=== PATIENT | female | born 1935 | race Caucasian/White ===

== ENCOUNTER → 2016-09-19 | Outpatient (CLI) | payer OTHER ==
[~2016-09-19] MED LIST: /WARF25TA; GLUC500T; LEVO100T7; LISINOPRIL/HCTZ; MELOXICAN; METF500T4; MILKSUS; MIRAPEX; NORV5TAB; PERC5TAB8; PRIN20TA3; SYNT100T; mirapex
--- NOTE | 2016-09-19 13:13 | REP ---
LEFT TOES, FOUR VIEWS: HISTORY: Pain. There is no acute fracture or dislocation. There is narrowing of the first metatarsal phalangeal joint space with associated osteophyte formation. There is irregularity of the head of the first metatarsal. Hallux valgus deformity is present. There is narrowing of the metatarsal phalangeal , intermediate and distal interphalangeal joint spaces. IMPRESSION: Degenerative change as described above. Signed by Galen Sotelo MD 09/19/2016 01:15 P
== END ==
LOC: M WUC 12:05
DX: M19.072 Primary osteoarthritis, left ankle and foot (principal)
CPT/HCPCS: 73660; 97597; G0463

== ENCOUNTER → 2017-02-19 | Outpatient (REF) | payer OTHER ==
[2017-02-19 14:30] LABS: PERCENT SATURATION 43.6 % (13.2-37.4)
== END ==
LOC: M LAB REF 13:20
PROVIDERS: ATTEND Internal Medicine Medical Oncology
DX: E83.110 Hereditary hemochromatosis (principal)

== ENCOUNTER 2017-05-11 20:17 | Emergency (ER) | payer OTHER ==
[~2017-05-11] VITALS: Ht 147.3 cm; Wt 68.2 kg
[2017-05-11] MEDS ORDERED: TOVI4TAB PO (20:53)
[2017-05-11] MEDS ORDERED: SITA50TAB PO (20:53)
[2017-05-11] MEDS ORDERED: DULO30CA PO (20:53)
[2017-05-11] MEDS ORDERED: PRAM0.5T4 PO (20:53)
[2017-05-11] MEDS ORDERED: GLIP5TAB8 PO (20:53)
[2017-05-11] MEDS ORDERED: PERCOCET 5MG/325MG TAB PO ONE (23:15)
--- NOTE | 2017-05-11 23:51 | REPUSA ---
Clinical history: Pain, swelling. Findings: The left common femoral, superficial femoral, popliteal, and other deep venous structures c ompress normally and demonstrate normal color Doppler flow. Normal venous waveforms with augmentation are seen. Impression: No evidence of deep vein thrombosis in the left femoral popliteal venous system.
[2017-05-12] MEDS ORDERED: KETOROLAC 60 MG/2 ML VIAL (J1885) IM ONE (02:00)
[2017-05-12] MEDS ORDERED: KETO10TAB PO (02:06)
[2017-05-12 03:39] VITALS: BP 162/92
== END 2017-05-12 03:41 | disposition home or self-care (01) ==
LOC: M ED 20:17
DX: M25.562 Pain in left knee (principal); I10 Essential (primary) hypertension; E11.9 Type 2 diabetes mellitus without complications; M19.90 Unspecified osteoarthritis, unspecified site; Z79.84 Long term (current) use of oral hypoglycemic drugs; Z79.899 Other long term (current) drug therapy; Z91.02 Food additives allergy status
CPT/HCPCS: 93971; 96372; 99283; J1885

== ENCOUNTER 2017-05-31 14:57 | Observation (INO) | payer OTHER ==
[~2017-05-31] VITALS: Ht 152.4 cm; Wt 66.5 kg
[~2017-05-31 14:57] MED LIST changes: +DULO30CA PO; +GLIP5TAB8 PO; +KETO10TAB PO; +PRAM0.5T4 PO; +SITA50TAB PO; +TOVI4TAB PO
[2017-05-31 15:28] LABS: BASO % 0.4 % (0.0-1.0); EOS # 0.1 10^3/uL (0.0-0.50); EOS % 1.3 % (0.0-3.0); IMMATURE GRANULOCYTE % 0.3 % (0-0); LYMPH % 14.3 % (24.0-44.0); MEAN CORPUSCULAR HEMOGLOBIN 32.6 pg (27.0-33.0); MEAN CORPUSCULAR HGB CONC 34.8 g/dl (32.0-36.5); MEAN CORPUSCULAR VOLUME 93.7 fl (80.0-96.0); MONO # 0.6 10^3/uL (0.0-0.8); MONO % 8.5 % (0.0-5.0); NEUTROPHILS # 5.1 10^3/uL (1.8-7.7); NEUTROPHILS % 75.2 % (36.0-66.0); PLATELET COUNT, AUTOMATED 190 10^3/uL (150-450); RED CELL DISTRIBUTION WIDTH 13.9 % (11.5-14.5); WHITE BLOOD COUNT 6.8 10^3/uL (4.0-10.0)
[2017-05-31 15:30] LABS: ADD MORPHOLOGY? NO
[2017-05-31] MEDS ORDERED: IBUPROFEN 600 MG TAB PO ONE (15:30)
[2017-05-31] MEDS ORDERED: NAPR500T3 PO ×2 (15:34→17:38)
[2017-05-31] MEDS ORDERED: LEVO100T5 PO (15:34)
[2017-05-31] MEDS ORDERED: CEPH500C PO ×2 (15:34→17:38)
[2017-05-31] MEDS ORDERED: GLIP1TAB49 PO (15:34)
[2017-05-31] MEDS ORDERED: DULO1CAP2 PO ×2 (15:34→17:38)
[2017-05-31] MEDS ORDERED: KETO10TAB PO (15:34)
[2017-05-31] MEDS ORDERED: METF500T13 PO ×3 (15:34→17:38)
[2017-05-31] MEDS ORDERED: HYDR-3716 PO ×2 (15:34→17:38)
[2017-05-31] MEDS ORDERED: SULF1TAB72 PO (15:34)
[2017-05-31 15:41] LABS: INR 1.02
[2017-05-31 15:58] LABS: CALCIUM LEVEL 9.9 MG/DL (8.8-10.2); CHLORIDE LEVEL 102 MEQ/L (98-107); CREATININE FOR GFR 1.17 MG/DL (0.55-1.02); GLUCOSE, FASTING 97 MG/DL (83-110); POTASSIUM SERUM 4.2 MEQ/L (3.5-5.1); SODIUM LEVEL 136 MEQ/L (136-145)
[2017-05-31 16:07] LABS: BLOOD UREA NITROGEN 36 MG/DL (7-18)
[2017-05-31 16:26] LABS: ANION GAP 12 MEQ/L (8-16); CARBON DIOXIDE LEVEL 22 MEQ/L (21-32)
[2017-05-31] MEDS ORDERED: GLIP-162 PO (17:38)
[2017-05-31] MEDS ORDERED: TOVI4TAB PO (17:38)
[2017-05-31] MEDS ORDERED: PRAM0.5T4 PO (17:38)
[2017-05-31] MEDS ORDERED: BACT800T5 PO (17:38)
[2017-05-31] MEDS ORDERED: OSTETAB3 PO (17:38)
[2017-05-31] MEDS ORDERED: VITA100066 PO (17:38)
[2017-05-31] MEDS ORDERED: LEVO100T54 PO (17:38)
[2017-05-31] MEDS ORDERED: SITA50TAB PO (17:38)
[2017-05-31] MEDS ORDERED: DEXTROSE 50% 50 ML SYRINGE IV PRN (18:15)
[2017-05-31] MEDS ORDERED: ONDANSETRON 4MG/2ML VIAL (J2405) IV PRN (18:15)
[2017-05-31] MEDS ORDERED: GLUCAGON FOR INJ 1 MG VIAL (J1610) SC PRN (18:15)
[2017-05-31] MEDS ORDERED: GLUCOSE 4 GM CHEW TABLET PO PRN (18:15)
[2017-05-31] MEDS ORDERED: ONDANSETRON 4 MG TAB (S0181) PO PRN (18:15)
--- NOTE | 2017-05-31 19:41 | HPEPDOC ---
[facility] Medical History & Physical Date of Admission May 31, 2017 History and Physical HISTORY AND PHYSICAL Date of admission: 05/31/2017 PCP: Dr. Sky at [facility] Chief complaint: Left knee pain preventing me from walking HPI: 81-year-old female with hypertension, diabetes mellitus type 2, hypothyroidism, hemachromatosis, osteoarthritis, bilateral carpal tunnel syndrome, chronic kidney disease stage III who presented to the emergency department because she is having extreme pain in her left knee that prevents her from walking. She reports that this story started several weeks ago when she slipped and fell in the shower. She states that she was evaluated in our emergency department at that time. There is an ER visit from May 11, where she was complaining of knee pain, and a left Doppler was performed which showed no evidence of DVT. At that time, she was sent home. She states that this was a mechanical fall and she did not have any prodromal symptoms prior to it, she simply slipped on the wet mat. She states that she had no loss of consciousness. She was initially able to walk and get around as usual, which at baseline, is with a wheeled walker. However, approximately 4 days later, she began to experience intense leg pain that she describes as being in her left knee and extending down the distal aspect of her leg. Approximately one week ago , she noticed that she had erythema of her left lower extremity distal to her knee, and she went to urgent care. At urgent care on May 25, they prescribed her Keflex. She began taking that but did not notice much of a difference in her leg, so she returned to urgent care on May 28, where they added on Bactrim. The patient and her [id number], both state that she has had significant improvement in the erythema since adding the Bactrim to the Keflex. Additionally, the patient states that she even thinks the pain has gotten a little bit better since she started the Bactrim. However, the family is quite insistent that her pain is so bad that she cannot walk. Of note, they report that approximately one year ago, she hit her left garcia with firewood, which started off a terrible infection for which she had to go to the wound clinic. They state that this past spring, the wound finally healed, and she was discharged from the wound clinic. In the last couple days, the patient denies any fevers or vomiting. She denies any numbness or tingling in the left lower extremity, and reports only pain, and weakness secondary to the pain. Past medical history: hypertension, diabetes mellitus type 2, hypothyroidism, hemachromatosis, osteoarthritis, bilateral carpal tunnel syndrome, chronic kidney disease stage III Past surgical history: Right hip nailed after stress fracture, cataracts, right toe amputation, lumpectomy for benign breast Family history: Coronary artery disease, cancer, brain aneurysm, hypertension Social history: The patient currently lives alone, but her family lives next door. She lives in a one-story house. She quit smoking approximately 40 years ago. She does not drink any alcohol Allergies: Red dye Review of systems: General: Negative on fever and chills Eyes:. Negative for vision changes and ocular discharge ENT: Negative for sore throat and nose bleed Cardiovascular: Negative for chest pain and palpitations Respiratory: Negative for cough and shortness of breath GI: Negative for nausea, vomiting, diarrhea, constipation Musculoskeletal: Positive for back pain if she lies on a hard surface, however, she states that she is not currently having any back pain here in the emergency department; she states that her only pain is in her left knee extending distally into the lower leg Neuro: Negative for headache and dizziness. Positive for chronic numbness and tingling of her bilateral hands, but no numbness or tingling in her left lower extremity Psych: Positive for depression, negative for suicidal ideation Endocrine: Negative for polyuria : Negative for dysuria Heme: Negative for bleeding Home meds: See below Physical exam: Vital signs: Vital Sign - Last 24 Hours 05/31/17 05/31/17 05/31/17 05/31/17 15:25 15:28 15:57 16:12 Temp 99.6 Pulse 92 92 92 Resp 18 B/P (MAP) 178/93 (121) Pulse Ox 95 93 93 O2 Delivery Room Air 05/31/17 16:16 B/P (MAP) 192/96 (128) Gen.: awake, alert, no acute distress Eyes: Extraocular movements intact, normal sclera ENT: Moist mucous membranes Cardiovascular: RRR, no murmurs rubs or gallops Lungs: clear to auscultation bilaterally, no rales, rhonchi, or wheeze Abdomen: Soft, NT/ND, normal BS Musculoskeletal: The patient is able to actively flex both lower extremities to at least 90, however, the patient tells me that the pain limits her from flexing her left lower extremity much past that point; there is no warmth or erythema of her bilateral knees; the patient reports tenderness to palpation of the left knee but she is unable to articulate any particular location, stating that it hurts whenever I touch any portion of that knee Skin: The patient has dark erythema of the left lower extremity on her anterior garcia, wrapping around to the posterior portion. This extends into the ankle but not into the foot. She also has evidence of an old healed wound on the left garcia. Extremities: No peripheral edema; intact pedal pulses bilaterally Neuro: alert and oriented 3, normal speech, no focal deficits Psych: Normal mood with congruent affect Labs and radiology: See below CBC is unremarkable BMP is remarkable only for creatinine of 1.17, which is consistent with her baseline creatinine being in the low ones secondary to stage III chronic kidney disease Coags are unremarkable Left lower extremity Doppler ultrasound shows no evidence of DVT Assessment and plan: 81-year-old female with hypertension, diabetes mellitus type 2, hypothyroidism, hemachromatosis, osteoarthritis, bilateral carpal tunnel syndrome, chronic kidney disease stage III who presented to the emergency department because she is having extreme pain in her left knee that prevents her from walking. She states that this pain began several days after she slipped and fell in the shower 3 weeks ago. She is also currently being treated for cellulitis of the left lower extremity. 1. Left knee pain: This began after she slipped and fell in the shower several weeks ago. I'm not able to find any evidence of imaging of her actual knee, only left lower extremity Doppler sounds. We will start with plain films of the left knee, and if that is unrevealing, we could consider CT or MRI of that knee. She does not have any erythema or warmth of the joint, so I do not have a suspicion for septic joint. We also will ask PT and OT to work with the patient. 2. Left lower extremity cellulitis: This is currently being treated with oral Keflex and Bactrim, and the patient and family report they have seen significant improvement since the initiation. We will continue her home oral Keflex and Bactrim. We will also check blood cultures. She is currently afebrile with a normal white count. We will tana the borders of the erythema so as to be able to better monitor her response to treatment. Left lower extremity Doppler ultrasound in the emergency department was negative for DVT. 3. Hypertension: The patient's blood pressure is currently elevated, but the patient does not report any home medications for blood pressure. I suspect that this may be secondary to her pain. We will attempt to treat her pain and monitor her blood pressure. If there is no improvement with adequate pain control, she may warrant being started on an oral agent. 4. Diabetes mellitus type 2: Continue home glipizide and Januvia. We will hold metformin while in-house. We also will monitor fingersticks and sliding scale insulin while in house. 5. Hypothyroidism: Continue home Synthroid. 6. Chronic kidney disease stage III: The patient's baseline creatinine appears to be in the low ones. She is currently at baseline. We will continue to monitor this closely as she is on Bactrim. 7. Depression: Continue home Cymbalta. DVT prophylaxis: Renally dosed Lovenox Dispo: Place in observation on the service of Dr. King; the patient and her family are seeking some sort of potential rehabilitation; PT/OT will be evaluating the patient tomorrow, and we have also placed a case management consult; we attempted to get case management from the emergency department to help set the family up with appropriate services, but as it was a Thursday evening , case management was unable to arrange anything that the family also found mutually agreeable that would help them be able to care for their mother at home , thus we have kept her for observation CODE STATUS: DNR/DNI as per the patient's expressed wishes; a MOLST form was completed attesting to her wishes; the patient has a legal healthcare POA, who is her son Krishna Cordero; she had paperwork attesting to this, and a copy was made and placed on her chart. Vital Signs Vital Signs Date Time Temp Pulse Resp B/P (MAP) Pulse Ox O2 Delivery O2 Flow Rate FiO2 05/31/17 16:16 192/96 (128) 05/31/17 16:12 92 93 05/31/17 15:25 99.6 18 Room Air Laboratory Data Labs 24H Laboratory Tests 2 05/31/17 15:16: Immature Granulocyte % (Auto) 0.3H, White Blood Count 6.8, Red Blood Count 4.29 , Hemoglobin 14.0, Hematocrit 40.2, Mean Corpuscular Volume 93.7, Mean Corpuscular Hemoglobin 32.6, Mean Corpuscular Hemoglobin Concent 34.8, Red Cell Distribution Width 13.9, Platelet Count 190, Neutrophils (%) (Auto) 75.2H, Lymphocytes (%) (Auto) 14.3L, Monocytes (%) (Auto) 8.5H, Eosinophils (%) (Auto) 1.3, Basophils (%) (Auto) 0.4, Neutrophils # (Auto) 5.1, Lymphocytes # (Auto) 1.0L, Monocytes # (Auto) 0.6, Eosinophils # (Auto) 0.1, Basophils # (Auto) 0.0, Immature Granulocyte # (Auto) 0.0, Nucleated Red Blood Cells % (auto) 0.0, Prothrombin Time 13.5, Prothromb Time International Ratio 1.02, Activated Partial Thromboplast Time 34.6, Anion Gap 12, Blood Urea Nitrogen 36H, Creatinine 1.17H, Sodium Level 136, Potassium Level 4.2, Chloride Level 102, Carbon Dioxide Level 22, Calcium Level 9.9 CBC/BMP Laboratory Tests 05/31/17 15:16 Red Blood Count 4.29, Mean Corpuscular Volume 93.7, Mean Corpuscular Hemoglobin 32.6, Mean Corpuscular Hemoglobin Concent 34.8, Red Cell Distribution Width 13.9 , Neutrophils (%) (Auto) 75.2 H, Lymphocytes (%) (Auto) 14.3 L, Monocytes (%) ( Auto) 8.5 H, Eosinophils (%) (Auto) 1.3, Basophils (%) (Auto) 0.4, Neutrophils # (Auto) 5.1, Lymphocytes # (Auto) 1.0 L, Monocytes # (Auto) 0.6, Eosinophils # (Auto) 0.1, Basophils # (Auto) 0.0, Calcium Level 9.9 Home Medications Scheduled (Toviaz) 4 Mg Tab, 4 MG PO DAILY (Osteo Bi-Flex Regular Str 250-200 mg) 1 Tab Tab, 1 TAB PO DAILY Cephalexin Monohydrate (Cephalexin) 500 Mg Cap, 500 MG PO TID FILLED 05/25/17 FOR 10 DAYS Cholecalciferol (Vitamin D) 1,000 Unit Tab, 1,000 UNIT PO DAILY Duloxetine Hcl (Duloxetine HCl) 30 Mg Cap, 30 MG PO DAILY Glipizide (Glipizide Xl) 5 Mg Tab, 5 MG PO DAILY Levothyroxine Sodium (Levoxyl) 100 Mcg Tab, 100 MCG PO DAILY Metformin Hydrochloride (Metformin HCl) 500 Mg Tab, 1,000 MG PO QAM Metformin Hydrochloride (Metformin HCl) 500 Mg Tab, 500 MG PO QPM Naproxen (Naproxen) 500 Mg Tab, 500 MG PO BID Pramipexole Dihydrochloride (Pramipexole Dihydrochlori) 0.5 Mg Tab, 0.5 MG PO QHS Sitagliptin (Januvia) 50 Mg Tab, 50 MG PO DAILY Trimethoprim/Sulfamethoxazole (Bactrim Ds 800-160 mg) 1 Tab Tab, 1 TAB PO BID FILLED 05/28/17 FOR 10 DAYS Scheduled PRN Acetaminophen/Hydrocodone (Hydrocodone/Acetaminophen 7.5-325 mg) 1 Tab Tab, 1 TAB PO BID PRN for PAIN DAUGHTER STATES THAT PATIENT IS TAKING TOO MANY Allergies Coded Allergies: Red Dye (Verified Allergy, Unknown, 11/30/12) LEMUEL CLINTON May 31, 2017 19:41
[2017-05-31 20:50] VITALS: BP 149/72
[2017-05-31] MEDS: HumaLOG INSULIN (NovoLOG) PER UNIT SC SCH (21:00)
[2017-05-31] MEDS: PRAMIPEXOLE 0.25 MG TAB PO SCH (21:52)
[2017-05-31] MEDS: CEPHALEXIN 500 MG CAP PO SCH (21:52)
[2017-05-31] MEDS: BACTRIM 160MG/800MG DS TAB PO SCH (21:52)
[2017-05-31] MEDS: PERCOCET 5MG/325MG TAB PO PRN (21:54)
[2017-06-01] MEDS: ACETAMINOPHEN TAB 650MG DOSE (2X325MG) PO PRN (00:07)
[2017-06-01] MEDS: PERCOCET 5MG/325MG TAB PO PRN ×3 (01:49→20:31)
[2017-06-01 06:00] VITALS: BP 145/69
--- NOTE | 2017-06-01 06:38 | REP ---
LEFT LOWER EXTREMITY DUPLEX VEINS: HISTORY: Swelling. COMPARISON: 05/25/2017. There are no filling defects in the deep venous system. The deep venous system is patent. IMPRESSION: There is no deep venous thrombosis. Signed by Galen Sotelo MD 06/01/2017 08:57 A
[2017-06-01 07:25] LABS: BASO # 0.1 10^3/uL (0.0-0.2); BASO % 0.9 % (0.0-1.0); EOS # 0.1 10^3/uL (0.0-0.50); EOS % 2.6 % (0.0-3.0); IMMATURE GRANULOCYTE % 0.4 % (0-0); LYMPH % 18.5 % (24.0-44.0); MEAN CORPUSCULAR HEMOGLOBIN 32.4 pg (27.0-33.0); MEAN CORPUSCULAR HGB CONC 34.2 g/dl (32.0-36.5); MEAN CORPUSCULAR VOLUME 94.7 fl (80.0-96.0); MONO # 0.5 10^3/uL (0.0-0.8); NEUTROPHILS # 3.7 10^3/uL (1.8-7.7); NEUTROPHILS % 68.6 % (36.0-66.0); PLATELET COUNT, AUTOMATED 146 10^3/uL (150-450); WHITE BLOOD COUNT 5.5 10^3/uL (4.0-10.0)
[2017-06-01] MEDS: HumaLOG INSULIN (NovoLOG) PER UNIT SC SCH ×4 (07:30→20:38)
--- NOTE | 2017-06-01 07:35 | REP ---
Left knee five views: There are no comparisons. There is chondrocalcinosis suggestive of CPPD. There is tricompartment osteoarthritis. There is demineralization. There is no effusion. There are no calcifications or foreign bodies. Signed by Fabian Morgan MD 06/01/2017 07:27 A
--- NOTE | 2017-06-01 07:36 | REP ---
Left tibia-fibula four views: There is demineralization. There is no fracture or dislocation. 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 Tricompartment osteoarthritis at the knee. There are no calcifications or foreign bodies. Signed by Fabian Morgan MD 06/01/2017 07:28 A
[2017-06-01 07:46] LABS: CALCIUM LEVEL 9.3 MG/DL (8.8-10.2); CREATININE FOR GFR 1.03 MG/DL (0.55-1.02); GLOMERULAR FILTRATION RATE 54.6 (>32); MAGNESIUM LEVEL 1.7 MG/DL (1.8-2.4); POTASSIUM SERUM 4.2 MEQ/L (3.5-5.1)
[2017-06-01 08:00] VITALS: BP 171/74
[2017-06-01] MEDS ORDERED: glipiZIDE XL 5 MG TABCR PO SCH (09:00)
[2017-06-01] MEDS ORDERED: SITagliptin 50 MG TAB (JANUVIA) PO SCH (09:00)
[2017-06-01] MEDS: VITAMIN D 1,000 INTERNATIONAL UNITS TABLET PO SCH (10:50)
[2017-06-01] MEDS: SENOKOT S TAB PO SCH ×2 (10:51→20:30)
[2017-06-01] MEDS: BACTRIM 160MG/800MG DS TAB PO SCH ×2 (10:51→20:30)
[2017-06-01] MEDS: DULoxetine 30 MG CAP (CYMBALTA) PO SCH (10:52)
[2017-06-01] MEDS: CEPHALEXIN 500 MG CAP PO SCH ×3 (10:53→20:30)
[2017-06-01] MEDS: LEVOTHYROXINE 100MCG TABLET (0.1MG) PO SCH (10:53)
[2017-06-01] MEDS: ENOXAPARIN 30 MG/0.3 ML SYR (J1650) SC SCH (10:55)
[2017-06-01 14:00] VITALS: BP 160/73
--- NOTE | 2017-06-01 14:09 | IPNPDOC ---
Text Note Date of Service The patient was seen on 06/01/17. NOTE Subjective: Patient is an 81 year old female with a PMHx of HTN, DM2, Hypothyroidism, CKD3, Hemochromatosis, OA and Bilateral carpal tunnel syndrome who presented to the ER with complaints of with pain in her left knee that has prevented her from walking. She noted she fell in her shower 2 weeks prior and since that point her pain has worsened. Patient was seen at Urgent care on 05/28 for Cellulitis and was prescribed antibiotics that have shown continued improvement. In the ER patient received imaging that was negative for a fracture or DVT. Imaging is consistent with osteoarthritis. Hospitalist team was called for admission for intractable pain and inability to ambulate. Patient was seen and examined at the bedside. Objective: Vitals (See below) General: Lying in bed, no acute distress, comfortable, AAOx3 HEENT: NC, AT CVS: RRR, +S1S2 Lungs: Fair air entry b/l, -w/r/r Abdomen: Soft, ND, NT Extremities: +PPx4, - Edema, Left knee with no restriction in ROM, +Crepitus at left knee, Left leg with mild erythema/warmth/tenderness Assessment and plan: Intractable left knee pain causing inability to ambulate - likely 2/2 severe osteoarthritis of knee - Presented after she had a fall at home - Physical with left knee crepitus, no restriction in passive ROM - Labs without any significant abnormalities - Imaging noted, negative fracture or DVT - c/w Pain control and Physical therapy Left lower extremity cellulitis, improving - Has been on outpatient antibiotics since 05/28/17 - Family and patient have noted improvement - Improving cellulitis - c/w Cephalexin and TMP/SMX (Day #4) HTN - BP elevated this morning - likely 2/2 pain - Will adjust pain medications to 2 pills of [place] - Will start Amlodipine 5 mg daily DM2 - Will hold Glipizide / Januvia / Metforin - c/w IS Hypothyroidism - c/w Levothyroxine CKD3 - Cr at baseline - Monitor closely while on TMP/SMX Depression - c/w Duloxetine RLS - c/w Pramipexole DVT prophylaxis - c/w Lovenox Disposition: - Awaiting clearance from PT VS,Deandre, I+O VS, Deandre, I+O Laboratory Tests 05/31/17 15:16 Red Blood Count 4.29, Mean Corpuscular Volume 93.7, Mean Corpuscular Hemoglobin 32.6, Mean Corpuscular Hemoglobin Concent 34.8, Red Cell Distribution Width 13.9 , Neutrophils (%) (Auto) 75.2 H, Lymphocytes (%) (Auto) 14.3 L, Monocytes (%) ( Auto) 8.5 H, Eosinophils (%) (Auto) 1.3, Basophils (%) (Auto) 0.4, Neutrophils # (Auto) 5.1, Lymphocytes # (Auto) 1.0 L, Monocytes # (Auto) 0.6, Eosinophils # (Auto) 0.1, Basophils # (Auto) 0.0, Calcium Level 9.9 06/01/17 07:12 Red Blood Count 3.98 L, Mean Corpuscular Volume 94.7, Mean Corpuscular Hemoglobin 32.4, Mean Corpuscular Hemoglobin Concent 34.2, Red Cell Distribution Width 14.0, Neutrophils (%) (Auto) 68.6 H, Lymphocytes (%) (Auto) 18.5 L, Monocytes (%) (Auto) 9.0 H, Eosinophils (%) (Auto) 2.6, Basophils (%) ( Auto) 0.9, Neutrophils # (Auto) 3.7, Lymphocytes # (Auto) 1.0 L, Monocytes # ( Auto) 0.5, Eosinophils # (Auto) 0.1, Basophils # (Auto) 0.1, Calcium Level 9.3 Vital Signs Date Time Temp Pulse Resp B/P (MAP) Pulse Ox O2 Delivery O2 Flow Rate FiO2 06/01/17 08:00 97.9 108 18 171/74 (106) 100 Room Air I&O- Last 24 Hours up to 6 AM 06/02/17 06:00 Intake Total 480 ml Output Total 350 ml Balance 130 ml LON DIAZ MD Jun 01, 2017 14:09
[2017-06-01] MEDS: amLODIPine 5 MG TAB PO SCH (14:28)
[2017-06-01 20:00] VITALS: BP 142/64
[2017-06-01] MEDS: PRAMIPEXOLE 0.25 MG TAB PO SCH (20:30)
[2017-06-02] MEDS: PERCOCET 5MG/325MG TAB PO PRN ×3 (04:15→20:32)
[2017-06-02 06:00] VITALS: BP 154/66
[2017-06-02 07:09] LABS: BASO % 0.6 % (0.0-1.0); EOS # 0.1 10^3/uL (0.0-0.50); EOS % 1.6 % (0.0-3.0); IMMATURE GRANULOCYTE % 0.3 % (0-0); LYMPH # 0.8 10^3/uL (1.5-4.5); LYMPH % 13.3 % (24.0-44.0); MEAN CORPUSCULAR HEMOGLOBIN 32.6 pg (27.0-33.0); MEAN CORPUSCULAR HGB CONC 34.9 g/dl (32.0-36.5); MEAN CORPUSCULAR VOLUME 93.6 fl (80.0-96.0); MONO # 0.5 10^3/uL (0.0-0.8); MONO % 8.5 % (0.0-5.0); NEUTROPHILS # 4.7 10^3/uL (1.8-7.7); NEUTROPHILS % 75.7 % (36.0-66.0); PLATELET COUNT, AUTOMATED 145 10^3/uL (150-450); RED CELL DISTRIBUTION WIDTH 13.8 % (11.5-14.5); WHITE BLOOD COUNT 6.2 10^3/uL (4.0-10.0)
[2017-06-02 07:38] LABS: ANION GAP 8 MEQ/L (8-16); BLOOD UREA NITROGEN 20 MG/DL (7-18); CALCIUM LEVEL 9.6 MG/DL (8.8-10.2); CARBON DIOXIDE LEVEL 25 MEQ/L (21-32); CHLORIDE LEVEL 103 MEQ/L (98-107); CREATININE FOR GFR 0.92 MG/DL (0.55-1.02); GLOMERULAR FILTRATION RATE > 60.0 (>32); GLUCOSE, FASTING 161 MG/DL (83-110); MAGNESIUM LEVEL 1.7 MG/DL (1.8-2.4); POTASSIUM SERUM 4.2 MEQ/L (3.5-5.1); SODIUM LEVEL 136 MEQ/L (136-145)
[2017-06-02 07:47] LABS: ADD MANUAL DIFFER NO; DIFF SLIDE NUMBER 53
[2017-06-02] MEDS: ENOXAPARIN 30 MG/0.3 ML SYR (J1650) SC SCH (07:50)
[2017-06-02] MEDS: HumaLOG INSULIN (NovoLOG) PER UNIT SC SCH ×4 (07:51→20:33)
[2017-06-02] MEDS: SENOKOT S TAB PO SCH ×2 (07:51→20:26)
[2017-06-02] MEDS: BACTRIM 160MG/800MG DS TAB PO SCH ×2 (07:51→20:25)
[2017-06-02] MEDS: VITAMIN D 1,000 INTERNATIONAL UNITS TABLET PO SCH (07:51)
[2017-06-02] MEDS: amLODIPine 5 MG TAB PO SCH (07:52)
[2017-06-02] MEDS: CEPHALEXIN 500 MG CAP PO SCH ×3 (07:52→20:25)
[2017-06-02] MEDS: DULoxetine 30 MG CAP (CYMBALTA) PO SCH (07:52)
[2017-06-02] MEDS: LEVOTHYROXINE 100MCG TABLET (0.1MG) PO SCH (07:54)
[2017-06-02] MEDS ORDERED: MAG SULF 1GM/100ML (MAG RUN) 1 GM in APPROPRIATE DILUENT 1 EA IV ONE (08:00)
[2017-06-02 14:00] VITALS: BP 139/74
--- NOTE | 2017-06-02 15:32 | IPNPDOC ---
Text Note Date of Service The patient was seen on 06/02/17. NOTE Subjective: Pt states her knee pain is improving. She is participating with PT> Objective: Vitals: (see below) General: No acute distress, laying comfortably in bed. HEENT: Moist mucous membranes. Neck: No JVD or lymphadenopathy Cardiac: RRR, No murmurs Pulm: Clear to auscultation b/l. No wheezing, rhonchi Abd: NT/ND + BS Ext: No edema or cyanosis. Left knee full range of motion. Does have pain with flexion. No effusion. Distal pulses intact. Strength 5/5 BLE. Labs (see below) Images: Tibia/fibula x-ray There is demineralization. There is no fracture or dislocation. 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 Tricompartment osteoarthritis at the knee. There are no calcifications or foreign bodies. L Knee X ray 06/01/17 There is chondrocalcinosis suggestive of CPPD. There is tricompartment osteoarthritis. There is demineralization. There is no effusion. There are no calcifications or foreign bodies. Venous X ray 06/01/17 IMPRESSION: There is no deep venous thrombosis. Assessment/Plan 1. Intractable left knee pain likely secondary to severe osteoarthritis - CONTINUE pain control and physical therapy 2. Left lower extremity cellulitis- resolved. Patient on antibiotics. 3. Hypertension- controlled; continue current meds 4. Diabetes mellitus- hold by mouth meds. Sliding-scale insulin. 5. Hypothyroidism- continue levothyroxine 6. Depression- continue home meds 7. Chronic kidney disease stage III- creatinine stable 8. Restless leg syndrome- continue home meds DVT prophy: Lovenox The patient has progressive with physical therapy, she will likely need subacute rehabilitation. VS,Fishbone, I+O VS, Fishbone, I+O Laboratory Tests 06/02/17 06:22 Red Blood Count 4.35, Mean Corpuscular Volume 93.6, Mean Corpuscular Hemoglobin 32.6, Mean Corpuscular Hemoglobin Concent 34.9, Red Cell Distribution Width 13.8 , Neutrophils (%) (Auto) 75.7 H, Lymphocytes (%) (Auto) 13.3 L, Monocytes (%) ( Auto) 8.5 H, Eosinophils (%) (Auto) 1.6, Basophils (%) (Auto) 0.6, Neutrophils # (Auto) 4.7, Lymphocytes # (Auto) 0.8 L, Monocytes # (Auto) 0.5, Eosinophils # (Auto) 0.1, Basophils # (Auto) 0.0, Calcium Level 9.6 Vital Signs Date Time Temp Pulse Resp B/P (MAP) Pulse Ox O2 Delivery O2 Flow Rate FiO2 06/02/17 14:00 98.1 76 18 139/74 (95) 97 Room Air I&O- Last 24 Hours up to 6 AM 06/03/17 06:00 Intake Total 580 ml Output Total 75 ml Balance 505 ml BILL SALAZAR MD Jun 02, 2017 15:32
[2017-06-02] MEDS: PRAMIPEXOLE 0.25 MG TAB PO SCH (20:26)
[2017-06-02 22:00] VITALS: BP 148/75
[2017-06-03] MEDS: ACETAMINOPHEN TAB 650MG DOSE (2X325MG) PO PRN (02:02)
[2017-06-03 06:00] VITALS: BP 148/70
[2017-06-03 07:03] LABS: BASO % 0.7 % (0.0-1.0); EOS # 0.2 10^3/uL (0.0-0.50); IMMATURE GRANULOCYTE % 0.4 % (0-0); LYMPH % 17.2 % (24.0-44.0); MEAN CORPUSCULAR HEMOGLOBIN 32.9 pg (27.0-33.0); MEAN CORPUSCULAR HGB CONC 34.9 g/dl (32.0-36.5); MEAN CORPUSCULAR VOLUME 94.1 fl (80.0-96.0); MONO # 0.6 10^3/uL (0.0-0.8); MONO % 10.1 % (0.0-5.0); NEUTROPHILS # 3.9 10^3/uL (1.8-7.7); NEUTROPHILS % 68.6 % (36.0-66.0); PLATELET COUNT, AUTOMATED 151 10^3/uL (150-450); WHITE BLOOD COUNT 5.7 10^3/uL (4.0-10.0)
[2017-06-03 07:31] LABS: ANION GAP 7 MEQ/L (8-16); BLOOD UREA NITROGEN 18 MG/DL (7-18); CALCIUM LEVEL 9.4 MG/DL (8.8-10.2); CARBON DIOXIDE LEVEL 25 MEQ/L (21-32); CHLORIDE LEVEL 104 MEQ/L (98-107); CREATININE FOR GFR 0.84 MG/DL (0.55-1.02); GLOMERULAR FILTRATION RATE > 60.0 (>32); GLUCOSE, FASTING 167 MG/DL (83-110); MAGNESIUM LEVEL 1.9 MG/DL (1.8-2.4); POTASSIUM SERUM 4.5 MEQ/L (3.5-5.1); SODIUM LEVEL 136 MEQ/L (136-145)
[2017-06-03] MEDS: BACTRIM 160MG/800MG DS TAB PO SCH ×2 (09:35→19:52)
[2017-06-03] MEDS: VITAMIN D 1,000 INTERNATIONAL UNITS TABLET PO SCH (09:36)
[2017-06-03] MEDS: SENOKOT S TAB PO SCH ×2 (09:36→19:51)
[2017-06-03] MEDS: CEPHALEXIN 500 MG CAP PO SCH ×3 (09:36→19:51)
[2017-06-03] MEDS: DULoxetine 30 MG CAP (CYMBALTA) PO SCH (09:36)
[2017-06-03] MEDS: LEVOTHYROXINE 100MCG TABLET (0.1MG) PO SCH (09:36)
[2017-06-03] MEDS: HumaLOG INSULIN (NovoLOG) PER UNIT SC SCH ×4 (09:36→20:05)
[2017-06-03] MEDS: ENOXAPARIN 30 MG/0.3 ML SYR (J1650) SC SCH (09:37)
[2017-06-03] MEDS: amLODIPine 5 MG TAB PO SCH (09:39)
[2017-06-03] MEDS: PERCOCET 5MG/325MG TAB PO PRN ×2 (09:49→19:52)
[2017-06-03 14:00] VITALS: BP 149/72
--- NOTE | 2017-06-03 14:39 | IPNPDOC ---
Text Note Date of Service The patient was seen on 06/03/17. NOTE Subjective: Pt states her knee pain is improving. Still hasn't progressed with PT. Objective: Vitals: (see below) General: No acute distress, laying comfortably in bed. HEENT: Moist mucous membranes. Neck: No JVD or lymphadenopathy Cardiac: RRR, No murmurs Pulm: Clear to auscultation b/l. No wheezing, rhonchi Abd: NT/ND + BS Ext: No edema or cyanosis. Left knee full range of motion. Does have pain with flexion. No effusion. Distal pulses intact. Strength 5/5 BLE. Labs (see below) Images: Tibia/fibula x-ray There is demineralization. There is no fracture or dislocation. 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 Tricompartment osteoarthritis at the knee. There are no calcifications or foreign bodies. L Knee X ray 06/01/17 There is chondrocalcinosis suggestive of CPPD. There is tricompartment osteoarthritis. There is demineralization. There is no effusion. There are no calcifications or foreign bodies. Venous X ray 06/01/17 IMPRESSION: There is no deep venous thrombosis. Assessment/Plan 1. Intractable left knee pain likely secondary to severe osteoarthritis - Continue pain control and physical therapy 2. Left lower extremity cellulitis- resolved. Patient on antibiotics. 3. Hypertension- controlled; continue current meds 4. Diabetes mellitus- hold by mouth meds. Sliding-scale insulin. 5. Hypothyroidism- continue levothyroxine 6. Depression- continue home meds 7. Chronic kidney disease stage III- creatinine stable 8. Restless leg syndrome- continue home meds DVT prophy: Lovenox The patient has progressive with physical therapy, she will likely need subacute rehabilitation. VS,Fishbone, I+O VS, Fishbone, I+O Laboratory Tests 06/03/17 06:20 Red Blood Count 4.26, Mean Corpuscular Volume 94.1, Mean Corpuscular Hemoglobin 32.9, Mean Corpuscular Hemoglobin Concent 34.9, Red Cell Distribution Width 14.0 , Neutrophils (%) (Auto) 68.6 H, Lymphocytes (%) (Auto) 17.2 L, Monocytes (%) ( Auto) 10.1 H, Eosinophils (%) (Auto) 3.0, Basophils (%) (Auto) 0.7, Neutrophils # (Auto) 3.9, Lymphocytes # (Auto) 1.0 L, Monocytes # (Auto) 0.6, Eosinophils # (Auto) 0.2, Basophils # (Auto) 0.0, Calcium Level 9.4 Vital Signs Date Time Temp Pulse Resp B/P (MAP) Pulse Ox O2 Delivery O2 Flow Rate FiO2 06/03/17 14:00 98.4 91 18 149/72 (97) 95 Room Air I&O- Last 24 Hours up to 6 AM 06/04/17 06:00 Intake Total 360 ml Balance 360 ml BILL SALAZAR MD Jun 03, 2017 14:39
[2017-06-03] MEDS: PRAMIPEXOLE 0.25 MG TAB PO SCH (19:51)
[2017-06-03 22:00] VITALS: BP 144/66
[2017-06-04] MEDS: PERCOCET 5MG/325MG TAB PO PRN ×2 (02:05→08:23)
[2017-06-04 06:00] VITALS: BP 138/88
[2017-06-04 06:55] LABS: BASO % 0.7 % (0.0-1.0); EOS # 0.1 10^3/uL (0.0-0.50); EOS % 2.6 % (0.0-3.0); IMMATURE GRANULOCYTE % 0.2 % (0-0); LYMPH % 18.2 % (24.0-44.0); MEAN CORPUSCULAR HEMOGLOBIN 33.1 pg (27.0-33.0); MEAN CORPUSCULAR HGB CONC 34.5 g/dl (32.0-36.5); MEAN CORPUSCULAR VOLUME 95.8 fl (80.0-96.0); MONO # 0.5 10^3/uL (0.0-0.8); MONO % 8.5 % (0.0-5.0); NEUTROPHILS # 3.8 10^3/uL (1.8-7.7); NEUTROPHILS % 69.8 % (36.0-66.0); PLATELET COUNT, AUTOMATED 164 10^3/uL (150-450); RED CELL DISTRIBUTION WIDTH 14.3 % (11.5-14.5); WHITE BLOOD COUNT 5.4 10^3/uL (4.0-10.0)
[2017-06-04 07:20] LABS: CALCIUM LEVEL 9.3 MG/DL (8.8-10.2); CREATININE FOR GFR 1.03 MG/DL (0.55-1.02); GLOMERULAR FILTRATION RATE 54.6 (>32); MAGNESIUM LEVEL 1.9 MG/DL (1.8-2.4); POTASSIUM SERUM 4.7 MEQ/L (3.5-5.1)
[2017-06-04] MEDS: HumaLOG INSULIN (NovoLOG) PER UNIT SC SCH (08:07)
[2017-06-04 08:08] VITALS: BP 132/84
[2017-06-04] MEDS: CEPHALEXIN 500 MG CAP PO SCH (08:08)
[2017-06-04] MEDS: amLODIPine 5 MG TAB PO SCH (08:08)
[2017-06-04] MEDS: LEVOTHYROXINE 100MCG TABLET (0.1MG) PO SCH (08:08)
[2017-06-04] MEDS: VITAMIN D 1,000 INTERNATIONAL UNITS TABLET PO SCH (08:08)
[2017-06-04] MEDS: ENOXAPARIN 30 MG/0.3 ML SYR (J1650) SC SCH (08:08)
[2017-06-04] MEDS: BACTRIM 160MG/800MG DS TAB PO SCH (08:08)
[2017-06-04] MEDS: SENOKOT S TAB PO SCH (08:08)
[2017-06-04] MEDS: DULoxetine 30 MG CAP (CYMBALTA) PO SCH (08:08)
[2017-06-04] MEDS ORDERED: SENN1TAB2 PO (08:56)
[2017-06-04] MEDS ORDERED: AMLO5TAB2 PO (08:56)
--- NOTE | 2017-06-04 15:55 | DS.PDOC ---
Discharge Summary General Date of Admission May 31, 2017 at 18:13 Date of Discharge 06/04/17 Attending Physician: BILL SALAZAR MD Discharge Summary PROCEDURES PERFORMED DURING STAY: None. ADMITTING/DISCHARGE DIAGNOSES: 1. Severe Osteoarthritis b/l Knees 2. Left lower extremity cellulitis status post antibiotic therapy. 3. Hypertension 4. Diabetes mellitus 5. Hypothyroidism 6. Depression 7. Chronic kidney disease stage III 8. Restless leg syndrome COMPLICATIONS/CHIEF COMPLAINT: HISTORY OF PRESENT ILLNESS/HOSPITAL COURSE: This is a 81-year-old female with past medical history of diabetes, hypertension , hypothyroid some substance complaining of left knee pain. Patient was noted to have severe osteoarthritis of her left knee and was maintained on pain control and physical therapy. Patient was also noted to have left lower extremity cellulitis which did not involve the knee. She had previously been started on antibiotics prior to hospitalization and was continued on them. The cellulitis has resolved. The patient has progressed with physical therapy however was recommended that she continue with rehabilitation for which her family has picked her up this morning to take her to [facility]. Patient is hemodynamically stable and ready for discharge today. DISCHARGE MEDICATIONS: Please see below. ALLERGIES: Please see below. PHYSICAL EXAMINATION ON DISCHARGE: Vitals: (see below) General: No acute distress, laying comfortably in bed. HEENT: Moist mucous membranes. Neck: No JVD or lymphadenopathy Cardiac: RRR, No murmurs Pulm: Clear to auscultation b/l. No wheezing, rhonchi Abd: NT/ND + BS Ext: No edema or cyanosis. Left knee full range of motion. Does have pain with flexion. No effusion. Distal pulses intact. Strength 5/5 BLE. LABORATORY DATA: Please see below. IMAGING: Tibia/fibula x-ray There is demineralization. There is no fracture or dislocation. 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 Tricompartment osteoarthritis at the knee. There are no calcifications or foreign bodies. L Knee X ray 06/01/17 There is chondrocalcinosis suggestive of CPPD. There is tricompartment osteoarthritis. There is demineralization. There is no effusion. There are no calcifications or foreign bodies. Venous X ray 06/01/17 IMPRESSION: There is no deep venous thrombosis. PROGNOSIS: Guarded ACTIVITY: As tolerated. DIET: Low-sodium DISCHARGE PLAN/DISPOSITION: Discharged to rehabilitation at [facility] DISCHARGE INSTRUCTIONS: 1. Follow-up with PCP in 1-2 weeks. Return to the ED if symptoms worsen. DISCHARGE CONDITION: Stable. TIME SPENT ON DISCHARGE: Greater than 30 minutes. Vital Signs/I&Os Vital Signs Date Time Temp Pulse Resp B/P (MAP) Pulse Ox O2 Delivery O2 Flow Rate FiO2 06/04/17 08:23 16 06/04/17 08:08 80 132/84 06/04/17 06:00 97.7 92 Room Air I&O- Last 24 Hours up to 6 AM 06/05/17 06:00 Intake Total 510 ml Output Total 200 ml Balance 310 ml Laboratory Data Labs 24H Laboratory Tests 2 06/03/17 16:25: Bedside Glucose (Misc Panel) 232H 06/03/17 19:36: Bedside Glucose (Misc Panel) 381H 06/04/17 06:19: Immature Granulocyte % (Auto) 0.2H, White Blood Count 5.4, Red Blood Count 4.05 , Hemoglobin 13.4, Hematocrit 38.8, Mean Corpuscular Volume 95.8, Mean Corpuscular Hemoglobin 33.1H, Mean Corpuscular Hemoglobin Concent 34.5, Red Cell Distribution Width 14.3, Platelet Count 164, Neutrophils (%) (Auto) 69.8H, Lymphocytes (%) (Auto) 18.2L, Monocytes (%) (Auto) 8.5H, Eosinophils (%) (Auto) 2.6, Basophils (%) (Auto) 0.7, Neutrophils # (Auto) 3.8, Lymphocytes # (Auto) 1.0L, Monocytes # (Auto) 0.5, Eosinophils # (Auto) 0.1, Basophils # (Auto) 0.0, Immature Granulocyte # (Auto) 0.0, Nucleated Red Blood Cells % (auto) 0.0, Anion Gap 9, Glomerular Filtration Rate 54.6, Blood Urea Nitrogen 26H, Creatinine 1.03H, Sodium Level 135L, Potassium Level 4.7, Chloride Level 102, Carbon Dioxide Level 24, Calcium Level 9.3, Magnesium Level 1.9 CBC/BMP Laboratory Tests 06/04/17 06:19 Red Blood Count 4.05, Mean Corpuscular Volume 95.8, Mean Corpuscular Hemoglobin 33.1 H, Mean Corpuscular Hemoglobin Concent 34.5, Red Cell Distribution Width 14.3, Neutrophils (%) (Auto) 69.8 H, Lymphocytes (%) (Auto) 18.2 L, Monocytes (% ) (Auto) 8.5 H, Eosinophils (%) (Auto) 2.6, Basophils (%) (Auto) 0.7, Neutrophils # (Auto) 3.8, Lymphocytes # (Auto) 1.0 L, Monocytes # (Auto) 0.5, Eosinophils # (Auto) 0.1, Basophils # (Auto) 0.0, Calcium Level 9.3 FSBS Laboratory Tests Test 06/03/17 16:25 06/03/17 19:36 Range/Units Bedside Glucose (Misc Panel) 232 381 83-110 MG/DL Microbiology Microbiology 05/31/17 Blood Culture - Preliminary, Resulted No Growth after 72 hours. All specime... Discharge Medications Scheduled (Toviaz) 4 Mg Tab, 4 MG PO DAILY, (Reported) (Osteo Bi-Flex Regular Str 250-200 mg) 1 Tab Tab, 1 TAB PO DAILY, (Reported) (Senna Plus 8.6-50 mg) 1 Tab Tab, 1 TAB PO BID Amlodipine Besylate (Amlodipine Besylate) 5 Mg Tab, 5 MG PO DAILY Cholecalciferol (Vitamin D) 1,000 Unit Tab, 1,000 UNIT PO DAILY, (Reported) Duloxetine Hcl (Duloxetine HCl) 30 Mg Cap, 30 MG PO DAILY, (Reported) Glipizide (Glipizide Xl) 5 Mg Tab, 5 MG PO DAILY, (Reported) Levothyroxine Sodium (Levoxyl) 100 Mcg Tab, 100 MCG PO DAILY, (Reported) Metformin Hydrochloride (Metformin HCl) 500 Mg Tab, 1,000 MG PO QAM, (Reported) Metformin Hydrochloride (Metformin HCl) 500 Mg Tab, 500 MG PO QPM, (Reported) Pramipexole Dihydrochloride (Pramipexole Dihydrochlori) 0.5 Mg Tab, 0.5 MG PO QHS, (Reported) Sitagliptin (Januvia) 50 Mg Tab, 50 MG PO DAILY, (Reported) Allergies Coded Allergies: Red Dye (Verified Allergy, Unknown, 11/30/12) BILL SALAZAR MD Jun 04, 2017 15:55
== END 2017-06-04 10:15 | disposition other institution (70) ==
LOC: EDSEX 14:57 → EDBD 14:57 → M ED 15:55 → M ED INP 18:13 → M MS5PR 20:45
PROVIDERS: ADMIT Hospitalist; ATTEND Internal Medicine
DX: M17.0 Bilateral primary osteoarthritis of knee (principal); L03.116 Cellulitis of left lower limb; I10 Essential (primary) hypertension; E11.9 Type 2 diabetes mellitus without complications; E03.9 Hypothyroidism, unspecified; N18.3 Chronic kidney disease, stage 3 (moderate); F32.9 Major depressive disorder, single episode, unspecified; G25.81 Restless legs syndrome; Z79.899 Other long term (current) drug therapy; Z87.891 Personal history of nicotine dependence
CPT/HCPCS: 36415; 73564; 73590; 80048; 83735; 85025; 85610; 85730; 86140; 87040; 93971; 96372; 97110; 97116; 97161; 97165; 97535; 99285; G8978; G8979; G8980; G8987; G8988; G8989; J1650; J3475

== ENCOUNTER 2017-09-15 11:23 | Emergency (ER) | payer OTHER ==
[2017-09-15] MEDS: MORPHINE 2 MG/ML 1ML SYRINGE IV (13:14)
[2017-09-15 13:24] LABS: BASO % 0.7 % (0.0-1.0); EOS # 0.2 10^3/uL (0.0-0.50); HEMATOCRIT 39.1 % (36.0-47.0); HEMOGLOBIN 13.8 g/dl (12.0-16.0); IMMATURE GRANULOCYTE % 0.2 % (0-0); LYMPH # 0.4 10^3/uL (1.5-4.5); LYMPH % 8.7 % (24.0-44.0); MEAN CORPUSCULAR HEMOGLOBIN 33.7 pg (27.0-33.0); MEAN CORPUSCULAR HGB CONC 35.3 g/dl (32.0-36.5); MEAN CORPUSCULAR VOLUME 95.4 fl (80.0-96.0); MONO # 0.3 10^3/uL (0.0-0.8); MONO % 7.1 % (0.0-5.0); NEUTROPHILS # 3.4 10^3/uL (1.8-7.7); NEUTROPHILS % 79.3 % (36.0-66.0); PLATELET COUNT, AUTOMATED 165 10^3/uL (150-450); RED CELL DISTRIBUTION WIDTH 16.3 % (11.5-14.5); WHITE BLOOD COUNT 4.2 10^3/uL (4.0-10.0)
[2017-09-15 13:38] LABS: INR 0.94; PROTHROMBIN TIME 12.6 SECONDS (12.4-14.5)
[2017-09-15 13:39] LABS: PARTIAL THROMBOPLASTIN TIME 35.1 SECONDS (26.8-37.9)
[2017-09-15 13:42] LABS: ANION GAP 11 MEQ/L (8-16); BLOOD UREA NITROGEN 23 MG/DL (7-18); CALCIUM LEVEL 9.7 MG/DL (8.8-10.2); CARBON DIOXIDE LEVEL 24 MEQ/L (21-32); CHLORIDE LEVEL 103 MEQ/L (98-107); CPK CREATINE PHOSPHOKINASE 58 U/L (26-192); CREATININE FOR GFR 0.82 MG/DL (0.55-1.02); GLOMERULAR FILTRATION RATE > 60.0 (>32); GLUCOSE, FASTING 157 MG/DL (83-110); POTASSIUM SERUM 3.8 MEQ/L (3.5-5.1); SODIUM LEVEL 138 MEQ/L (136-145)
[2017-09-15 13:43] LABS: LACTIC ACID SEPSIS PROTOCOL 2.7 MMOL/L (0.4-2.0)
[2017-09-15 13:49] LABS: ERYTHROCYTE SEDIMENTATION RATE 40 mm/hr (0-30)
[2017-09-15] MEDS: HYDROmorphone HCL 1 MG/ML SYRINGE (J1170) IV (14:30)
== END 2017-09-15 14:47 | disposition home or self-care (01) ==
LOC: M ED 11:23
DX: G62.9 Polyneuropathy, unspecified (principal); I10 Essential (primary) hypertension; E11.9 Type 2 diabetes mellitus without complications; E03.9 Hypothyroidism, unspecified; F33.9 Major depressive disorder, recurrent, unspecified; E83.119 Hemochromatosis, unspecified; Z79.899 Other long term (current) drug therapy; Z79.84 Long term (current) use of oral hypoglycemic drugs; Z91.048 Other nonmedicinal substance allergy status; F17.210 Nicotine dependence, cigarettes, uncomplicated
CPT/HCPCS: J1170

== ENCOUNTER 2017-10-03 13:50 | Inpatient (IN) | payer MEDICARE, OTHER ==
[2017-10-03 15:22] LABS: HEMATOCRIT 43.8 % (36.0-47.0); HEMOGLOBIN 14.8 g/dl (12.0-16.0); MEAN CORPUSCULAR HEMOGLOBIN 32.8 pg (27.0-33.0); MEAN CORPUSCULAR HGB CONC 33.8 g/dl (32.0-36.5); MEAN CORPUSCULAR VOLUME 97.1 fl (80.0-96.0); PLATELET COUNT, AUTOMATED 180 10^3/uL (150-450); RED BLOOD COUNT 4.51 10^6/uL (4.00-5.40); RED CELL DISTRIBUTION WIDTH 15.4 % (11.5-14.5); WHITE BLOOD COUNT 6.6 10^3/uL (4.0-10.0)
[2017-10-03 15:39] LABS: AMPHETAMINES LEVEL URINE NEGATIVE (NEGATIVE); BARBITURATES URINE NEGATIVE (NEGATIVE); BENZODIAZEPINES URINE NEGATIVE (NEGATIVE); CANNABINOIDS URINE NEGATIVE (NEGATIVE); COCAINE METABOLITE URINE NEGATIVE (NEGATIVE); METHADONE URINE NEGATIVE (NEGATIVE); OPIATES URINE POSITIVE (NEGATIVE); PHENCYCLIDINE URINE NEGATIVE (NEGATIVE)
[2017-10-03 15:47] LABS: ACETAMINOPHEN LEVEL < 2.0 UG/ML (10.0-30.0); ALBUMIN 3.7 GM/DL (3.2-5.2); ALBUMIN/GLOBULIN RATIO 0.97 (1.00-1.93); ALKALINE PHOSPHATASE 136 U/L (45-117); ALT/SGPT 19 U/L (12-78); ANION GAP 11 MEQ/L (8-16); AST/SGOT 24 U/L (7-37); BILIRUBIN,DIRECT 0.4 MG/DL (0.0-0.2); BLOOD UREA NITROGEN 21 MG/DL (7-18); CALCIUM LEVEL 9.1 MG/DL (8.8-10.2); CARBON DIOXIDE LEVEL 25 MEQ/L (21-32); CHLORIDE LEVEL 102 MEQ/L (98-107); CREATININE FOR GFR 0.85 MG/DL (0.55-1.30); ETHYL ALCOHOL (ETHANOL) 0.003 % (0.000-0.010); GLOMERULAR FILTRATION RATE > 60.0 (>32); GLUCOSE, FASTING 162 MG/DL (70-100); POTASSIUM SERUM 3.6 MEQ/L (3.5-5.1); SALICYLATE LEVEL < 1.7 MG/DL (5.0-30.0); SODIUM LEVEL 138 MEQ/L (136-145); THYROID STIMULATING HORMONE 0.327 uIU/ML (0.358-3.740); TOTAL PROTEIN 7.5 GM/DL (6.4-8.2)
[2017-10-03] MEDS ORDERED: MOM 30ML SUSPENSION UDC PO (19:45)
[2017-10-03] MEDS: NORCO, ANEXSIA 5/325MG TABLET (HYDROcodone/ACETAMINOPHEN) PO (21:11)
[2017-10-04] MEDS: ACETAMINOPHEN TAB 650MG DOSE (2X325MG) PO ×2 (02:36→09:44)
[2017-10-04 06:26] LABS: BEDSIDE GLUCOSE 150 MG/DL (83-110)
[2017-10-04 10:49] LABS: BEDSIDE GLUCOSE 272 MG/DL (83-110)
[2017-10-04] MEDS: NORCO, ANEXSIA 5/325MG TABLET (HYDROcodone/ACETAMINOPHEN) PO ×2 (12:52→21:55)
[2017-10-04] MEDS: BACITRACIN OINT 30GM TOP (13:00)
[2017-10-04] MEDS: LOSARTAN 50 MG TAB PO (13:12)
[2017-10-04] MEDS: ENOXAPARIN 30 MG/0.3 ML SYR (J1650) SC (14:46)
[2017-10-04 17:46] LABS: BEDSIDE GLUCOSE 232 MG/DL (83-110)
[2017-10-04] MEDS ORDERED: metFORMIN (GLUCOPHAGE) 500 MG TAB PO (18:00)
[2017-10-04] MEDS: PRAMIPEXOLE 0.25 MG TAB PO (22:11)
[2017-10-05] MEDS: traZODone 50 MG TAB PO (01:25)
[2017-10-05] MEDS: ACETAMINOPHEN TAB 650MG DOSE (2X325MG) PO ×2 (01:25→14:46)
[2017-10-05] MEDS: LEVOTHYROXINE 100MCG TABLET (0.1MG) PO (06:23)
[2017-10-05 07:50] LABS: BEDSIDE GLUCOSE 156 MG/DL (83-110)
[2017-10-05] MEDS: glipiZIDE *XL* 2.5MG TABLET PO (07:50)
[2017-10-05] MEDS: SITagliptin 50 MG TAB (JANUVIA) PO (07:50)
[2017-10-05] MEDS: LOSARTAN 50 MG TAB PO (07:51)
[2017-10-05] MEDS: SERTRALINE HCL 25 MG TABLET PO (07:51)
[2017-10-05] MEDS: BACITRACIN OINT 30GM TOP (07:52)
[2017-10-05] MEDS: ENOXAPARIN 30 MG/0.3 ML SYR (J1650) SC (07:52)
[2017-10-05] MEDS ORDERED: metFORMIN (GLUCOPHAGE) 1000 MG TABLET PO (08:00)
[2017-10-05 09:18] LABS: ALBUMIN 3.5 GM/DL (3.2-5.2); ALBUMIN/GLOBULIN RATIO 0.95 (1.00-1.93); ALKALINE PHOSPHATASE 135 U/L (45-117); ALT/SGPT 29 U/L (12-78); ANION GAP 8 MEQ/L (8-16); AST/SGOT 48 U/L (7-37); BILIRUBIN,TOTAL 1.1 MG/DL (0.2-1.0); BLOOD UREA NITROGEN 20 MG/DL (7-18); CALCIUM LEVEL 9.1 MG/DL (8.8-10.2); CARBON DIOXIDE LEVEL 26 MEQ/L (21-32); CHLORIDE LEVEL 107 MEQ/L (98-107); CHOLESTEROL LEVEL 141 MG/DL (<200); CREATININE FOR GFR 0.72 MG/DL (0.55-1.30); FREE THYROXINE INDEX 4.7 % (1.3-4.8); GLOMERULAR FILTRATION RATE > 60.0 (>32); GLUCOSE, FASTING 176 MG/DL (70-100); HDL CHOLESTEROL 60 MG/DL (>40); NON-HDL-C 81 MG/DL; POTASSIUM SERUM 3.7 MEQ/L (3.5-5.1); SODIUM LEVEL 141 MEQ/L (136-145); T UPTAKE 35 % (30-39); THYROID STIMULATING HORMONE 0.622 uIU/ML (0.358-3.740); THYROXINE (T4) 13.4 UG/DL (4.5-12.0); TOTAL PROTEIN 7.2 GM/DL (6.4-8.2); TRIGLYCERIDES LEVEL 170 MG/DL (<150)
[2017-10-05] MEDS: NORCO, ANEXSIA 5/325MG TABLET (HYDROcodone/ACETAMINOPHEN) PO ×2 (09:50→21:45)
[2017-10-05] MEDS: DOCUSATE SODIUM 100 MG CAP PO ×2 (14:45→21:41)
[2017-10-05 17:06] LABS: BEDSIDE GLUCOSE 145 MG/DL (83-110)
[2017-10-05] MEDS: PRAMIPEXOLE 0.25 MG TAB PO (21:41)
[2017-10-05] MEDS: DOXEPIN 25 MG CAP PO (22:24)
[2017-10-06] MEDS: LEVOTHYROXINE 100MCG TABLET (0.1MG) PO (06:07)
[2017-10-06] MEDS: glipiZIDE *XL* 2.5MG TABLET PO (06:36)
[2017-10-06 06:41] LABS: BEDSIDE GLUCOSE 130 MG/DL (83-110)
[2017-10-06] MEDS: ENOXAPARIN 30 MG/0.3 ML SYR (J1650) SC (08:36)
[2017-10-06] MEDS: SERTRALINE HCL 25 MG TABLET PO (08:36)
[2017-10-06] MEDS: BACITRACIN OINT 30GM TOP (08:36)
[2017-10-06] MEDS: SITagliptin 50 MG TAB (JANUVIA) PO (08:37)
[2017-10-06] MEDS: LOSARTAN 50 MG TAB PO (08:37)
[2017-10-06] MEDS: DOCUSATE SODIUM 100 MG CAP PO ×2 (08:37→21:53)
[2017-10-06] MEDS: NORCO, ANEXSIA 5/325MG TABLET (HYDROcodone/ACETAMINOPHEN) PO (08:38)
[2017-10-06] MEDS ORDERED: BUPRENORPHINE/NALOXONE 8-2MG SUBLINGUAL TABLET(SUBOXONE) SL ×3 (09:00→21:00)
[2017-10-06] MEDS: BUPRENORPHINE/NALOXONE 2-0.5MG SUBLINGUAL TABLET(SUBOXONE) SL ×2 (09:00→13:13)
[2017-10-06] MEDS: ACETAMINOPHEN TAB 650MG DOSE (2X325MG) PO ×2 (13:14→21:54)
[2017-10-06 16:52] LABS: BEDSIDE GLUCOSE 122 MG/DL (83-110)
[2017-10-06] MEDS: PRAMIPEXOLE 0.25 MG TAB PO (21:53)
[2017-10-06] MEDS: DOXEPIN 25 MG CAP PO (21:53)
[2017-10-07] MEDS: LEVOTHYROXINE 100MCG TABLET (0.1MG) PO (06:30)
[2017-10-07] MEDS: glipiZIDE *XL* 2.5MG TABLET PO (06:30)
[2017-10-07 06:36] LABS: BEDSIDE GLUCOSE 163 MG/DL (83-110)
[2017-10-07 07:34] LABS: HEMATOCRIT 37.7 % (36.0-47.0); MEAN CORPUSCULAR HEMOGLOBIN 33.7 pg (27.0-33.0); MEAN CORPUSCULAR HGB CONC 34.5 g/dl (32.0-36.5); MEAN CORPUSCULAR VOLUME 97.7 fl (80.0-96.0); PLATELET COUNT, AUTOMATED 133 10^3/uL (150-450); RED BLOOD COUNT 3.86 10^6/uL (4.00-5.40); RED CELL DISTRIBUTION WIDTH 15.1 % (11.5-14.5); WHITE BLOOD COUNT 3.9 10^3/uL (4.0-10.0)
[2017-10-07] MEDS: DOCUSATE SODIUM 100 MG CAP PO ×2 (08:39→22:23)
[2017-10-07] MEDS: SITagliptin 50 MG TAB (JANUVIA) PO (08:39)
[2017-10-07] MEDS: BUPRENORPHINE/NALOXONE 2-0.5MG SUBLINGUAL TABLET(SUBOXONE) SL (08:39)
[2017-10-07] MEDS: BACITRACIN OINT 30GM TOP (08:40)
[2017-10-07] MEDS: SERTRALINE HCL 25 MG TABLET PO (08:40)
[2017-10-07] MEDS: ENOXAPARIN 30 MG/0.3 ML SYR (J1650) SC (08:41)
[2017-10-07] MEDS: LOSARTAN 50 MG TAB PO (08:44)
[2017-10-07] MEDS ORDERED: BUPRENORPHINE/NALOXONE 8-2MG SUBLINGUAL TABLET(SUBOXONE) SL ×2 (09:00)
[2017-10-07 10:24] LABS: ESTIMATED AVERAGE GLUCOSE 108 MG/DL (60-110); HEMOGLOBIN A1c 5.4 %
[2017-10-07] MEDS: CEPHALEXIN 500 MG CAP PO ×3 (12:23→22:23)
[2017-10-07] MEDS: ACETAMINOPHEN 500 MG TAB PO (12:49)
[2017-10-07] MEDS: DULoxetine 30 MG CAP (CYMBALTA) PO (14:54)
[2017-10-07 17:34] LABS: BEDSIDE GLUCOSE 152 MG/DL (83-110)
[2017-10-07] MEDS: BUPRENORPHINE/NALOXONE 8-2MG SUBLINGUAL TABLET(SUBOXONE) SL (18:18)
[2017-10-07] MEDS: PRAMIPEXOLE 0.25 MG TAB PO (22:23)
[2017-10-08] MEDS: LEVOTHYROXINE 100MCG TABLET (0.1MG) PO (06:21)
[2017-10-08 07:10] LABS: HEMATOCRIT 36.3 % (36.0-47.0); MEAN CORPUSCULAR HEMOGLOBIN 33.1 pg (27.0-33.0); MEAN CORPUSCULAR HGB CONC 33.1 g/dl (32.0-36.5); PLATELET COUNT, AUTOMATED 136 10^3/uL (150-450); RED BLOOD COUNT 3.63 10^6/uL (4.00-5.40); RED CELL DISTRIBUTION WIDTH 15.4 % (11.5-14.5)
[2017-10-08 07:33] LABS: ALBUMIN 2.7 GM/DL (3.2-5.2); ALBUMIN/GLOBULIN RATIO 0.73 (1.00-1.93); ALKALINE PHOSPHATASE 166 U/L (45-117); ALT/SGPT 48 U/L (12-78); ANION GAP 7 MEQ/L (8-16); AST/SGOT 53 U/L (7-37); BILIRUBIN,TOTAL 0.9 MG/DL (0.2-1.0); BLOOD UREA NITROGEN 31 MG/DL (7-18); CALCIUM LEVEL 8.8 MG/DL (8.8-10.2); CARBON DIOXIDE LEVEL 26 MEQ/L (21-32); CHLORIDE LEVEL 106 MEQ/L (98-107); CREATININE FOR GFR 0.87 MG/DL (0.55-1.30); GLOMERULAR FILTRATION RATE > 60.0 (>32); GLUCOSE, FASTING 157 MG/DL (70-100); POTASSIUM SERUM 4.2 MEQ/L (3.5-5.1); SODIUM LEVEL 139 MEQ/L (136-145); TOTAL PROTEIN 6.4 GM/DL (6.4-8.2)
[2017-10-08] MEDS: SITagliptin 50 MG TAB (JANUVIA) PO (07:41)
[2017-10-08] MEDS: glipiZIDE *XL* 2.5MG TABLET PO (07:41)
[2017-10-08] MEDS: LOSARTAN 50 MG TAB PO (09:00)
[2017-10-08] MEDS: CEPHALEXIN 500 MG CAP PO (09:00)
[2017-10-08] MEDS: DOCUSATE SODIUM 100 MG CAP PO ×2 (09:08→20:56)
[2017-10-08] MEDS: DULoxetine 30 MG CAP (CYMBALTA) PO (09:08)
[2017-10-08] MEDS: BUPRENORPHINE/NALOXONE 8-2MG SUBLINGUAL TABLET(SUBOXONE) SL ×2 (09:13→18:09)
[2017-10-08] MEDS: ENOXAPARIN 30 MG/0.3 ML SYR (J1650) SC (09:16)
[2017-10-08] MEDS: BACITRACIN OINT 30GM TOP (09:30)
[2017-10-08] MEDS: ACETAMINOPHEN 500 MG TAB PO ×2 (12:12→21:00)
[2017-10-08] MEDS: SANTYL OINT 30GM TOP (14:28)
[2017-10-08 17:07] LABS: BEDSIDE GLUCOSE 140 MG/DL (83-110)
[2017-10-08] MEDS: DOXEPIN 25 MG CAP PO (20:56)
[2017-10-08] MEDS: PRAMIPEXOLE 0.25 MG TAB PO (20:56)
[2017-10-09] MEDS: LEVOTHYROXINE 100MCG TABLET (0.1MG) PO (05:41)
[2017-10-09 06:27] LABS: BEDSIDE GLUCOSE 133 MG/DL (83-110)
[2017-10-09 07:44] LABS: ALBUMIN 2.7 GM/DL (3.2-5.2); ALBUMIN/GLOBULIN RATIO 0.82 (1.00-1.93); ALKALINE PHOSPHATASE 240 U/L (45-117); ALT/SGPT 51 U/L (12-78); ANION GAP 8 MEQ/L (8-16); AST/SGOT 73 U/L (7-37); BILIRUBIN,TOTAL 0.8 MG/DL (0.2-1.0); BLOOD UREA NITROGEN 36 MG/DL (7-18); CALCIUM LEVEL 8.7 MG/DL (8.8-10.2); CARBON DIOXIDE LEVEL 25 MEQ/L (21-32); CHLORIDE LEVEL 105 MEQ/L (98-107); CREATININE FOR GFR 0.81 MG/DL (0.55-1.30); GLOMERULAR FILTRATION RATE > 60.0 (>32); GLUCOSE, FASTING 128 MG/DL (70-100); POTASSIUM SERUM 4.2 MEQ/L (3.5-5.1); SODIUM LEVEL 138 MEQ/L (136-145)
[2017-10-09] MEDS: glipiZIDE *XL* 2.5MG TABLET PO (07:52)
[2017-10-09] MEDS: SITagliptin 50 MG TAB (JANUVIA) PO (07:52)
[2017-10-09] MEDS: ENOXAPARIN 30 MG/0.3 ML SYR (J1650) SC (09:22)
[2017-10-09] MEDS: LOSARTAN 50 MG TAB PO (09:23)
[2017-10-09] MEDS: BUPRENORPHINE/NALOXONE 8-2MG SUBLINGUAL TABLET(SUBOXONE) SL ×3 (09:23→20:51)
[2017-10-09] MEDS: DULoxetine 30 MG CAP (CYMBALTA) PO (09:23)
[2017-10-09] MEDS: DOCUSATE SODIUM 100 MG CAP PO ×2 (09:23→20:46)
[2017-10-09 10:40] LABS: HEPATITIS B SURFACE ANTIGEN NEGATIVE (NEGATIVE)
[2017-10-09 10:55] LABS: HEPATITIS B CORE ANTIBODY IGM NEGATIVE (NEGATIVE); HEPATITIS C VIRUS ABY INDEX < 0.0 INDEX (<0.8)
[2017-10-09 10:57] LABS: HEPATITIS A ANTIBODY IGM NEGATIVE (NEGATIVE)
[2017-10-09] MEDS: SANTYL OINT 30GM TOP (11:01)
[2017-10-09] MEDS: GABAPENTIN 400 MG CAP PO ×3 (11:02→20:46)
[2017-10-09 11:40] LABS: HEMATOCRIT 36.8 % (36.0-47.0); HEMOGLOBIN 12.3 g/dl (12.0-16.0); MEAN CORPUSCULAR HEMOGLOBIN 33.1 pg (27.0-33.0); MEAN CORPUSCULAR HGB CONC 33.4 g/dl (32.0-36.5); MEAN CORPUSCULAR VOLUME 98.9 fl (80.0-96.0); PLATELET COUNT, AUTOMATED 142 10^3/uL (150-450); RED BLOOD COUNT 3.72 10^6/uL (4.00-5.40); RED CELL DISTRIBUTION WIDTH 14.9 % (11.5-14.5); WHITE BLOOD COUNT 3.7 10^3/uL (4.0-10.0)
[2017-10-09 12:00] LABS: FERRITIN 126 NG/ML (8-252); IRON (FE) 61 UG/DL (50-170); PERCENT SATURATION 33.9 % (13.2-45.0); TOTAL IRON BINDING CAPACITY 180 UG/DL (250-450)
[2017-10-09 12:12] LABS: VITAMIN B12 LEVEL 177 PG/ML (247-911)
[2017-10-09 12:13] LABS: FOLATE 9.9 NG/ML (>5.4)
[2017-10-09] MEDS: ACETAMINOPHEN 500 MG TAB PO (16:37)
[2017-10-09 17:07] LABS: BEDSIDE GLUCOSE 170 MG/DL (83-110)
[2017-10-09] MEDS: PRAMIPEXOLE 0.25 MG TAB PO (20:46)
[2017-10-10] MEDS: ACETAMINOPHEN 500 MG TAB PO ×2 (03:36→12:06)
[2017-10-10] MEDS: LEVOTHYROXINE 100MCG TABLET (0.1MG) PO (06:17)
[2017-10-10] MEDS: glipiZIDE *XL* 2.5MG TABLET PO (06:33)
[2017-10-10 06:50] LABS: BEDSIDE GLUCOSE 155 MG/DL (83-110)
[2017-10-10 07:29] LABS: HEMATOCRIT 34.4 % (36.0-47.0); HEMOGLOBIN 11.7 g/dl (12.0-16.0); MEAN CORPUSCULAR HEMOGLOBIN 33.4 pg (27.0-33.0); MEAN CORPUSCULAR VOLUME 98.3 fl (80.0-96.0); PLATELET COUNT, AUTOMATED 135 10^3/uL (150-450); RED CELL DISTRIBUTION WIDTH 14.7 % (11.5-14.5); WHITE BLOOD COUNT 4.2 10^3/uL (4.0-10.0)
[2017-10-10 07:50] LABS: ALBUMIN 2.6 GM/DL (3.2-5.2); ALBUMIN/GLOBULIN RATIO 0.84 (1.00-1.93); ALKALINE PHOSPHATASE 233 U/L (45-117); ALT/SGPT 48 U/L (12-78); ANION GAP 7 MEQ/L (8-16); AST/SGOT 57 U/L (7-37); BILIRUBIN,TOTAL 0.6 MG/DL (0.2-1.0); BLOOD UREA NITROGEN 28 MG/DL (7-18); CALCIUM LEVEL 8.8 MG/DL (8.8-10.2); CARBON DIOXIDE LEVEL 26 MEQ/L (21-32); CHLORIDE LEVEL 104 MEQ/L (98-107); CREATININE FOR GFR 0.63 MG/DL (0.55-1.30); GLOMERULAR FILTRATION RATE > 60.0 (>32); GLUCOSE, FASTING 149 MG/DL (70-100); POTASSIUM SERUM 4.3 MEQ/L (3.5-5.1); SODIUM LEVEL 137 MEQ/L (136-145); TOTAL PROTEIN 5.7 GM/DL (6.4-8.2)
[2017-10-10] MEDS: BUPRENORPHINE/NALOXONE 8-2MG SUBLINGUAL TABLET(SUBOXONE) SL ×2 (09:00→21:00)
[2017-10-10] MEDS: LOSARTAN 50 MG TAB PO (09:00)
[2017-10-10] MEDS: DULoxetine 30 MG CAP (CYMBALTA) PO (09:45)
[2017-10-10] MEDS: SITagliptin 50 MG TAB (JANUVIA) PO (09:45)
[2017-10-10] MEDS: DOCUSATE SODIUM 100 MG CAP PO ×2 (09:45→21:00)
[2017-10-10] MEDS: GABAPENTIN 400 MG CAP PO ×3 (09:45→21:00)
[2017-10-10] MEDS: SANTYL OINT 30GM TOP (10:26)
[2017-10-10 17:18] LABS: BEDSIDE GLUCOSE 131 MG/DL (83-110)
[2017-10-10] MEDS: ENOXAPARIN 30 MG/0.3 ML SYR (J1650) SC (17:40)
[2017-10-10] MEDS: PRAMIPEXOLE 0.25 MG TAB PO (21:00)
[2017-10-11] MEDS: LEVOTHYROXINE 100MCG TABLET (0.1MG) PO (06:16)
[2017-10-11] MEDS: ACETAMINOPHEN 500 MG TAB PO ×2 (06:21→16:39)
[2017-10-11] MEDS: glipiZIDE *XL* 2.5MG TABLET PO (06:25)
[2017-10-11 06:30] LABS: BEDSIDE GLUCOSE 102 MG/DL (83-110)
[2017-10-11] MEDS: SITagliptin 50 MG TAB (JANUVIA) PO (07:50)
[2017-10-11] MEDS: DOCUSATE SODIUM 100 MG CAP PO ×2 (08:37→20:46)
[2017-10-11] MEDS: BUPRENORPHINE/NALOXONE 8-2MG SUBLINGUAL TABLET(SUBOXONE) SL ×2 (08:38→20:48)
[2017-10-11] MEDS: GABAPENTIN 400 MG CAP PO ×3 (08:40→20:46)
[2017-10-11] MEDS: DULoxetine 30 MG CAP (CYMBALTA) PO (08:40)
[2017-10-11] MEDS: LOSARTAN 50 MG TAB PO (08:41)
[2017-10-11] MEDS: ENOXAPARIN 30 MG/0.3 ML SYR (J1650) SC (08:42)
[2017-10-11] MEDS: SANTYL OINT 30GM TOP (09:00)
[2017-10-11 16:58] LABS: BEDSIDE GLUCOSE 162 MG/DL (83-110)
[2017-10-11] MEDS: PRAMIPEXOLE 0.25 MG TAB PO (20:46)
[2017-10-11] MEDS: DOXEPIN 25 MG CAP PO (20:46)
[2017-10-12] MEDS: LEVOTHYROXINE 100MCG TABLET (0.1MG) PO (06:15)
[2017-10-12] MEDS: glipiZIDE *XL* 2.5MG TABLET PO (06:38)
[2017-10-12 07:10] LABS: BASO % 0.9 % (0.0-1.0); EOS # 0.2 10^3/uL (0.0-0.50); EOS % 5.1 % (0.0-3.0); HEMATOCRIT 33.5 % (36.0-47.0); HEMOGLOBIN 11.4 g/dl (12.0-16.0); IMMATURE GRANULOCYTE % 0.3 % (0-3.0); LYMPH # 0.8 10^3/uL (1.5-4.5); LYMPH % 23.6 % (24.0-44.0); MEAN CORPUSCULAR HEMOGLOBIN 33.9 pg (27.0-33.0); MEAN CORPUSCULAR VOLUME 99.7 fl (80.0-96.0); MONO # 0.4 10^3/uL (0.0-0.8); MONO % 10.9 % (0.0-5.0); NEUTROPHILS % 59.2 % (36.0-66.0); PLATELET COUNT, AUTOMATED 124 10^3/uL (150-450); RED BLOOD COUNT 3.36 10^6/uL (4.00-5.40); RED CELL DISTRIBUTION WIDTH 14.5 % (11.5-14.5); WHITE BLOOD COUNT 3.3 10^3/uL (4.0-10.0)
[2017-10-12] MEDS: LOSARTAN 50 MG TAB PO (09:29)
[2017-10-12] MEDS: DULoxetine 30 MG CAP (CYMBALTA) PO (09:29)
[2017-10-12] MEDS: BUPRENORPHINE/NALOXONE 8-2MG SUBLINGUAL TABLET(SUBOXONE) SL ×2 (09:29→20:25)
[2017-10-12] MEDS: GABAPENTIN 400 MG CAP PO ×3 (09:30→20:18)
[2017-10-12] MEDS: CYANOCOBALAMIN 500 MCG TAB PO (09:30)
[2017-10-12] MEDS: SITagliptin 50 MG TAB (JANUVIA) PO (09:30)
[2017-10-12] MEDS: DOCUSATE SODIUM 100 MG CAP PO ×2 (09:31→20:17)
[2017-10-12] MEDS: ENOXAPARIN 30 MG/0.3 ML SYR (J1650) SC (09:31)
[2017-10-12] MEDS: CYANOCOBALAMIN 1,000 MCG/ML VIAL (J3420) SC (15:40)
[2017-10-12] MEDS: SANTYL OINT 30GM TOP (15:40)
[2017-10-12] MEDS: PRAMIPEXOLE 0.25 MG TAB PO (20:18)
[2017-10-12] MEDS: ACETAMINOPHEN 500 MG TAB PO (20:25)
[2017-10-13] MEDS: LEVOTHYROXINE 100MCG TABLET (0.1MG) PO (06:25)
[2017-10-13] MEDS: glipiZIDE *XL* 2.5MG TABLET PO (06:32)
[2017-10-13 06:43] LABS: BEDSIDE GLUCOSE 159 MG/DL (83-110)
[2017-10-13 07:40] LABS: HEMATOCRIT 34.9 % (36.0-47.0); HEMOGLOBIN 11.7 g/dl (12.0-16.0); MEAN CORPUSCULAR HEMOGLOBIN 33.3 pg (27.0-33.0); MEAN CORPUSCULAR HGB CONC 33.5 g/dl (32.0-36.5); MEAN CORPUSCULAR VOLUME 99.4 fl (80.0-96.0); PLATELET COUNT, AUTOMATED 127 10^3/uL (150-450); RED BLOOD COUNT 3.51 10^6/uL (4.00-5.40); RED CELL DISTRIBUTION WIDTH 14.6 % (11.5-14.5); WHITE BLOOD COUNT 3.2 10^3/uL (4.0-10.0)
[2017-10-13 08:14] LABS: ALBUMIN 2.5 GM/DL (3.2-5.2); ALBUMIN/GLOBULIN RATIO 0.69 (1.00-1.93); ALKALINE PHOSPHATASE 252 U/L (45-117); ALT/SGPT 52 U/L (12-78); ANION GAP 7 MEQ/L (8-16); AST/SGOT 76 U/L (7-37); BILIRUBIN,TOTAL 0.5 MG/DL (0.2-1.0); BLOOD UREA NITROGEN 22 MG/DL (7-18); CALCIUM LEVEL 9.4 MG/DL (8.8-10.2); CARBON DIOXIDE LEVEL 29 MEQ/L (21-32); CHLORIDE LEVEL 106 MEQ/L (98-107); CREATININE FOR GFR 0.69 MG/DL (0.55-1.30); GLOMERULAR FILTRATION RATE > 60.0 (>32); GLUCOSE, FASTING 154 MG/DL (70-100); POTASSIUM SERUM 4.2 MEQ/L (3.5-5.1); SODIUM LEVEL 142 MEQ/L (136-145); TOTAL PROTEIN 6.1 GM/DL (6.4-8.2)
[2017-10-13 08:33] LABS: BEDSIDE GLUCOSE 145 MG/DL (83-110)
[2017-10-13] MEDS: LOSARTAN 50 MG TAB PO (09:08)
[2017-10-13] MEDS: GABAPENTIN 400 MG CAP PO ×3 (09:08→21:00)
[2017-10-13] MEDS: SANTYL OINT 30GM TOP (09:08)
[2017-10-13] MEDS: CYANOCOBALAMIN 500 MCG TAB PO (09:08)
[2017-10-13] MEDS: DULoxetine 30 MG CAP (CYMBALTA) PO (09:08)
[2017-10-13] MEDS: SITagliptin 50 MG TAB (JANUVIA) PO (09:08)
[2017-10-13] MEDS: BUPRENORPHINE/NALOXONE 8-2MG SUBLINGUAL TABLET(SUBOXONE) SL ×2 (09:08→21:00)
[2017-10-13] MEDS: DOCUSATE SODIUM 100 MG CAP PO ×2 (09:08→21:00)
[2017-10-13] MEDS: ENOXAPARIN 30 MG/0.3 ML SYR (J1650) SC (09:09)
[2017-10-13 11:40] LABS: SLIDE REVIEW Report; SOURCE PERIPHERAL SMEAR
[2017-10-13 11:41] LABS: REASON FOR REVIEW PLATELET MORPHOLOGY
[2017-10-13] MEDS: IBUPROFEN 400 MG TAB PO ×2 (15:37→21:00)
[2017-10-13 17:32] LABS: BEDSIDE GLUCOSE 112 MG/DL (83-110)
[2017-10-13] MEDS: PRAMIPEXOLE 0.25 MG TAB PO (21:00)
[2017-10-14] MEDS: LEVOTHYROXINE 100MCG TABLET (0.1MG) PO (05:42)
[2017-10-14] MEDS: IBUPROFEN 400 MG TAB PO ×3 (05:45→19:26)
[2017-10-14 05:55] LABS: BEDSIDE GLUCOSE 121 MG/DL (83-110)
[2017-10-14] MEDS: glipiZIDE *XL* 2.5MG TABLET PO (06:32)
[2017-10-14 07:11] LABS: HEMATOCRIT 38.9 % (36.0-47.0); HEMOGLOBIN 13.3 g/dl (12.0-16.0); MEAN CORPUSCULAR HEMOGLOBIN 33.4 pg (27.0-33.0); MEAN CORPUSCULAR HGB CONC 34.2 g/dl (32.0-36.5); MEAN CORPUSCULAR VOLUME 97.7 fl (80.0-96.0); PLATELET COUNT, AUTOMATED 146 10^3/uL (150-450); RED BLOOD COUNT 3.98 10^6/uL (4.00-5.40); RED CELL DISTRIBUTION WIDTH 14.1 % (11.5-14.5); WHITE BLOOD COUNT 3.3 10^3/uL (4.0-10.0)
[2017-10-14 07:28] LABS: ALBUMIN 2.9 GM/DL (3.2-5.2); ALBUMIN/GLOBULIN RATIO 0.69 (1.00-1.93); ALKALINE PHOSPHATASE 253 U/L (45-117); ALT/SGPT 44 U/L (12-78); ANION GAP 9 MEQ/L (8-16); AST/SGOT 51 U/L (7-37); BILIRUBIN,TOTAL 0.8 MG/DL (0.2-1.0); BLOOD UREA NITROGEN 19 MG/DL (7-18); CARBON DIOXIDE LEVEL 26 MEQ/L (21-32); CHLORIDE LEVEL 106 MEQ/L (98-107); CREATININE FOR GFR 0.68 MG/DL (0.55-1.30); GLOMERULAR FILTRATION RATE > 60.0 (>32); GLUCOSE, FASTING 114 MG/DL (70-100); POTASSIUM SERUM 4.3 MEQ/L (3.5-5.1); SODIUM LEVEL 141 MEQ/L (136-145); TOTAL PROTEIN 7.1 GM/DL (6.4-8.2)
[2017-10-14] MEDS: LOSARTAN 50 MG TAB PO (09:00)
[2017-10-14] MEDS: BUPRENORPHINE/NALOXONE 2-0.5MG SUBLINGUAL TABLET(SUBOXONE) SL (09:00)
[2017-10-14] MEDS: SANTYL OINT 30GM TOP (09:00)
[2017-10-14] MEDS: DULoxetine 30 MG CAP (CYMBALTA) PO (09:55)
[2017-10-14] MEDS: CYANOCOBALAMIN 500 MCG TAB PO (09:55)
[2017-10-14] MEDS: GABAPENTIN 400 MG CAP PO ×3 (09:55→20:52)
[2017-10-14] MEDS: DOCUSATE SODIUM 100 MG CAP PO ×2 (09:55→20:52)
[2017-10-14] MEDS: SITagliptin 50 MG TAB (JANUVIA) PO (09:55)
[2017-10-14] MEDS: QUEtiapine FUMARATE 12.5 MG HALF-TAB PO (11:45)
[2017-10-14 17:42] LABS: BEDSIDE GLUCOSE 155 MG/DL (83-110)
[2017-10-14] MEDS: PRAMIPEXOLE 0.25 MG TAB PO (20:52)
[2017-10-14] MEDS: QUEtiapine FUMARATE 25 MG TAB PO (20:52)
[2017-10-15] MEDS: LEVOTHYROXINE 100MCG TABLET (0.1MG) PO (06:24)
[2017-10-15] MEDS: glipiZIDE *XL* 2.5MG TABLET PO (06:46)
[2017-10-15] MEDS: IBUPROFEN 400 MG TAB PO (07:13)
[2017-10-15] MEDS: SITagliptin 50 MG TAB (JANUVIA) PO (07:13)
[2017-10-15 07:20] LABS: HEMATOCRIT 33.8 % (36.0-47.0); HEMOGLOBIN 11.4 g/dl (12.0-16.0); MEAN CORPUSCULAR HEMOGLOBIN 33.8 pg (27.0-33.0); MEAN CORPUSCULAR HGB CONC 33.7 g/dl (32.0-36.5); MEAN CORPUSCULAR VOLUME 100.3 fl (80.0-96.0); PLATELET COUNT, AUTOMATED 118 10^3/uL (150-450); RED BLOOD COUNT 3.37 10^6/uL (4.00-5.40); RED CELL DISTRIBUTION WIDTH 14.2 % (11.5-14.5); WHITE BLOOD COUNT 2.9 10^3/uL (4.0-10.0)
[2017-10-15 07:41] LABS: ALBUMIN 2.5 GM/DL (3.2-5.2); ALBUMIN/GLOBULIN RATIO 0.69 (1.00-1.93); ALKALINE PHOSPHATASE 210 U/L (45-117); ALT/SGPT 32 U/L (12-78); ANION GAP 7 MEQ/L (8-16); AST/SGOT 30 U/L (7-37); BILIRUBIN,TOTAL 0.5 MG/DL (0.2-1.0); BLOOD UREA NITROGEN 20 MG/DL (7-18); CALCIUM LEVEL 9.5 MG/DL (8.8-10.2); CARBON DIOXIDE LEVEL 28 MEQ/L (21-32); CHLORIDE LEVEL 106 MEQ/L (98-107); CREATININE FOR GFR 0.64 MG/DL (0.55-1.30); GLOMERULAR FILTRATION RATE > 60.0 (>32); GLUCOSE, FASTING 132 MG/DL (70-100); POTASSIUM SERUM 4.2 MEQ/L (3.5-5.1); SODIUM LEVEL 141 MEQ/L (136-145); TOTAL PROTEIN 6.1 GM/DL (6.4-8.2)
[2017-10-15] MEDS: LOSARTAN 50 MG TAB PO (09:00)
[2017-10-15] MEDS: CYANOCOBALAMIN 500 MCG TAB PO (09:21)
[2017-10-15] MEDS: GABAPENTIN 400 MG CAP PO ×3 (09:21→21:38)
[2017-10-15] MEDS: DOCUSATE SODIUM 100 MG CAP PO ×2 (09:21→21:39)
[2017-10-15] MEDS: SANTYL OINT 30GM TOP (09:28)
[2017-10-15] MEDS: LIDOCAINE 5% (LIDODERM) PATCH TD (16:33)
[2017-10-15 17:37] LABS: KETONE, URINE AUTO RFX NEGATIVE (NEGATIVE); LEUKOCYTE ESTERASE UR AUTO RFX NEGATIVE (NEGATIVE); NITRITE, URINE AUTO RFX NEGATIVE (NEGATIVE); RBC, URINE AUTO RFX 0 /HPF (0-3); SPECIFIC GRAVITY UR AUTO RFX 1.009 (1.002-1.035); SQUAM EPITHELIAL CELL UR AURFX 1 /HPF (0-6); WBC, URINE AUTO RFX 1 /HPF (0-3)
[2017-10-15] MEDS: IBUPROFEN 800 MG TAB PO (18:01)
[2017-10-15] MEDS: **NOTE PATIENT COMMENT** MISC XX (21:00)
[2017-10-15] MEDS: PRAMIPEXOLE 0.25 MG TAB PO (21:39)
[2017-10-16] MEDS: LEVOTHYROXINE 100MCG TABLET (0.1MG) PO (06:22)
[2017-10-16] MEDS: glipiZIDE *XL* 2.5MG TABLET PO (06:34)
[2017-10-16 06:56] LABS: BEDSIDE GLUCOSE 95 MG/DL (83-110)
[2017-10-16 07:05] LABS: BASO % 0.6 % (0.0-1.0); EOS # 0.1 10^3/uL (0.0-0.50); EOS % 3.7 % (0.0-3.0); HEMOGLOBIN 11.7 g/dl (12.0-16.0); IMMATURE GRANULOCYTE % 0.3 % (0-3.0); LYMPH # 0.8 10^3/uL (1.5-4.5); LYMPH % 21.1 % (24.0-44.0); MEAN CORPUSCULAR HEMOGLOBIN 33.4 pg (27.0-33.0); MEAN CORPUSCULAR HGB CONC 33.4 g/dl (32.0-36.5); MONO # 0.3 10^3/uL (0.0-0.8); MONO % 7.9 % (0.0-5.0); NEUTROPHILS # 2.4 10^3/uL (1.8-7.7); NEUTROPHILS % 66.4 % (36.0-66.0); PLATELET COUNT, AUTOMATED 134 10^3/uL (150-450); WHITE BLOOD COUNT 3.6 10^3/uL (4.0-10.0)
[2017-10-16 07:26] LABS: ALBUMIN 2.4 GM/DL (3.2-5.2); ALBUMIN/GLOBULIN RATIO 0.63 (1.00-1.93); ALKALINE PHOSPHATASE 182 U/L (45-117); ALT/SGPT 26 U/L (12-78); ANION GAP 9 MEQ/L (8-16); AST/SGOT 28 U/L (7-37); BILIRUBIN,TOTAL 0.6 MG/DL (0.2-1.0); BLOOD UREA NITROGEN 18 MG/DL (7-18); CALCIUM LEVEL 9.2 MG/DL (8.8-10.2); CARBON DIOXIDE LEVEL 27 MEQ/L (21-32); CHLORIDE LEVEL 106 MEQ/L (98-107); CREATININE FOR GFR 0.63 MG/DL (0.55-1.30); GLOMERULAR FILTRATION RATE > 60.0 (>32); GLUCOSE, FASTING 98 MG/DL (70-100); POTASSIUM SERUM 4.2 MEQ/L (3.5-5.1); SODIUM LEVEL 142 MEQ/L (136-145); TOTAL PROTEIN 6.2 GM/DL (6.4-8.2)
[2017-10-16] MEDS: DOCUSATE SODIUM 100 MG CAP PO ×2 (08:43→21:57)
[2017-10-16] MEDS: SITagliptin 50 MG TAB (JANUVIA) PO (08:43)
[2017-10-16] MEDS: GABAPENTIN 400 MG CAP PO (08:43)
[2017-10-16] MEDS: CYANOCOBALAMIN 500 MCG TAB PO (08:44)
[2017-10-16] MEDS: LIDOCAINE 5% (LIDODERM) PATCH TD (08:45)
[2017-10-16] MEDS: IBUPROFEN 800 MG TAB PO ×2 (09:22→17:14)
[2017-10-16] MEDS: LOSARTAN 50 MG TAB PO (09:23)
[2017-10-16] MEDS: SANTYL OINT 30GM TOP (10:30)
[2017-10-16] MEDS: CYANOCOBALAMIN 1,000 MCG/ML VIAL (J3420) IM (12:10)
[2017-10-16 12:34] LABS: BEDSIDE GLUCOSE 120 MG/DL (83-110)
[2017-10-16] MEDS: GABAPENTIN 100 MG CAP PO ×2 (15:16→21:53)
[2017-10-16 16:49] LABS: BEDSIDE GLUCOSE 97 MG/DL (83-110)
[2017-10-16] MEDS: **NOTE PATIENT COMMENT** MISC XX (21:00)
[2017-10-16] MEDS: PRAMIPEXOLE 0.25 MG TAB PO (21:54)
[2017-10-16 21:57] LABS: BEDSIDE GLUCOSE 220 MG/DL (83-110)
[2017-10-17] MEDS: LEVOTHYROXINE 100MCG TABLET (0.1MG) PO (05:43)
[2017-10-17] MEDS: glipiZIDE *XL* 2.5MG TABLET PO (05:44)
[2017-10-17 06:00] LABS: BEDSIDE GLUCOSE 138 MG/DL (83-110)
[2017-10-17 07:14] LABS: BASO % 0.5 % (0.0-1.0); EOS # 0.1 10^3/uL (0.0-0.50); HEMATOCRIT 39.4 % (36.0-47.0); IMMATURE GRANULOCYTE % 0.2 % (0-3.0); LYMPH # 0.9 10^3/uL (1.5-4.5); MEAN CORPUSCULAR HEMOGLOBIN 33.2 pg (27.0-33.0); MEAN CORPUSCULAR VOLUME 100.5 fl (80.0-96.0); MONO # 0.3 10^3/uL (0.0-0.8); MONO % 7.2 % (0.0-5.0); NEUTROPHILS # 2.7 10^3/uL (1.8-7.7); NEUTROPHILS % 67.1 % (36.0-66.0); PLATELET COUNT, AUTOMATED 146 10^3/uL (150-450); RED BLOOD COUNT 3.92 10^6/uL (4.00-5.40); RED CELL DISTRIBUTION WIDTH 13.8 % (11.5-14.5); WHITE BLOOD COUNT 4.1 10^3/uL (4.0-10.0)
[2017-10-17 07:39] LABS: ALBUMIN 2.8 GM/DL (3.2-5.2); ALBUMIN/GLOBULIN RATIO 0.78 (1.00-1.93); ALKALINE PHOSPHATASE 222 U/L (45-117); ALT/SGPT 28 U/L (12-78); ANION GAP 5 MEQ/L (8-16); AST/SGOT 31 U/L (7-37); BILIRUBIN,TOTAL 0.6 MG/DL (0.2-1.0); BLOOD UREA NITROGEN 22 MG/DL (7-18); CARBON DIOXIDE LEVEL 32 MEQ/L (21-32); CHLORIDE LEVEL 103 MEQ/L (98-107); CREATININE FOR GFR 0.82 MG/DL (0.55-1.30); GLOMERULAR FILTRATION RATE > 60.0 (>32); GLUCOSE, FASTING 150 MG/DL (70-100); SODIUM LEVEL 140 MEQ/L (136-145); TOTAL PROTEIN 6.4 GM/DL (6.4-8.2)
[2017-10-17] MEDS: GABAPENTIN 100 MG CAP PO ×3 (09:15→20:05)
[2017-10-17] MEDS: SANTYL OINT 30GM TOP (09:15)
[2017-10-17] MEDS: SITagliptin 50 MG TAB (JANUVIA) PO (09:15)
[2017-10-17] MEDS: LOSARTAN 50 MG TAB PO (09:15)
[2017-10-17] MEDS: CYANOCOBALAMIN 500 MCG TAB PO (09:15)
[2017-10-17] MEDS: IBUPROFEN 800 MG TAB PO ×2 (09:16→17:04)
[2017-10-17] MEDS: DOCUSATE SODIUM 100 MG CAP PO ×2 (09:16→20:05)
[2017-10-17] MEDS: LIDOCAINE 5% (LIDODERM) PATCH TD (09:17)
[2017-10-17] MEDS: **NOTE PATIENT COMMENT** MISC XX (20:05)
[2017-10-17] MEDS: PRAMIPEXOLE 0.25 MG TAB PO (20:05)
[2017-10-17 20:50] LABS: BEDSIDE GLUCOSE 156 MG/DL (83-110)
[2017-10-18 06:38] LABS: BEDSIDE GLUCOSE 137 MG/DL (83-110)
[2017-10-18 06:58] LABS: HEMOGLOBIN 12.8 g/dl (12.0-16.0); MEAN CORPUSCULAR HEMOGLOBIN 33.3 pg (27.0-33.0); MEAN CORPUSCULAR HGB CONC 33.7 g/dl (32.0-36.5); PLATELET COUNT, AUTOMATED 130 10^3/uL (150-450); RED BLOOD COUNT 3.84 10^6/uL (4.00-5.40); RED CELL DISTRIBUTION WIDTH 13.5 % (11.5-14.5); WHITE BLOOD COUNT 3.5 10^3/uL (4.0-10.0)
[2017-10-18] MEDS: glipiZIDE *XL* 2.5MG TABLET PO (07:03)
[2017-10-18] MEDS: IBUPROFEN 800 MG TAB PO ×2 (07:03→17:03)
[2017-10-18] MEDS: LEVOTHYROXINE 100MCG TABLET (0.1MG) PO (07:03)
[2017-10-18] MEDS: SITagliptin 50 MG TAB (JANUVIA) PO (07:04)
[2017-10-18 07:21] LABS: ALBUMIN 2.9 GM/DL (3.2-5.2); ALBUMIN/GLOBULIN RATIO 0.76 (1.00-1.93); ALKALINE PHOSPHATASE 187 U/L (45-117); ALT/SGPT 24 U/L (12-78); ANION GAP 8 MEQ/L (8-16); AST/SGOT 26 U/L (7-37); BILIRUBIN,TOTAL 0.6 MG/DL (0.2-1.0); BLOOD UREA NITROGEN 22 MG/DL (7-18); CALCIUM LEVEL 9.4 MG/DL (8.8-10.2); CARBON DIOXIDE LEVEL 29 MEQ/L (21-32); CHLORIDE LEVEL 106 MEQ/L (98-107); CREATININE FOR GFR 0.72 MG/DL (0.55-1.30); GLOMERULAR FILTRATION RATE > 60.0 (>32); GLUCOSE, FASTING 176 MG/DL (70-100); SODIUM LEVEL 143 MEQ/L (136-145); TOTAL PROTEIN 6.7 GM/DL (6.4-8.2)
[2017-10-18] MEDS: DOCUSATE SODIUM 100 MG CAP PO ×2 (09:25→20:45)
[2017-10-18] MEDS: CYANOCOBALAMIN 500 MCG TAB PO (09:26)
[2017-10-18] MEDS: LIDOCAINE 5% (LIDODERM) PATCH TD (09:26)
[2017-10-18] MEDS: GABAPENTIN 100 MG CAP PO ×3 (09:26→20:45)
[2017-10-18] MEDS: LOSARTAN 50 MG TAB PO (09:26)
[2017-10-18] MEDS: SANTYL OINT 30GM TOP (09:27)
[2017-10-18 17:08] LABS: BEDSIDE GLUCOSE 212 MG/DL (83-110)
[2017-10-18] MEDS: MAALOX 30 ML SUSP *UDC PO (20:13)
[2017-10-18] MEDS: QUEtiapine FUMARATE 25 MG TAB PO (20:45)
[2017-10-18] MEDS: PRAMIPEXOLE 0.25 MG TAB PO (20:45)
[2017-10-18] MEDS: **NOTE PATIENT COMMENT** MISC XX (21:30)
[2017-10-19] MEDS: LEVOTHYROXINE 100MCG TABLET (0.1MG) PO (06:16)
[2017-10-19] MEDS: glipiZIDE *XL* 2.5MG TABLET PO (06:37)
[2017-10-19 07:03] LABS: HEMATOCRIT 33.8 % (36.0-47.0); HEMOGLOBIN 11.5 g/dl (12.0-16.0); MEAN CORPUSCULAR HEMOGLOBIN 33.5 pg (27.0-33.0); MEAN CORPUSCULAR VOLUME 98.5 fl (80.0-96.0); PLATELET COUNT, AUTOMATED 122 10^3/uL (150-450); RED BLOOD COUNT 3.43 10^6/uL (4.00-5.40); RED CELL DISTRIBUTION WIDTH 13.8 % (11.5-14.5); WHITE BLOOD COUNT 3.2 10^3/uL (4.0-10.0)
[2017-10-19 07:24] LABS: ALBUMIN 2.5 GM/DL (3.2-5.2); ALBUMIN/GLOBULIN RATIO 0.78 (1.00-1.93); ALKALINE PHOSPHATASE 151 U/L (45-117); ALT/SGPT 21 U/L (12-78); ANION GAP 7 MEQ/L (8-16); AST/SGOT 22 U/L (7-37); BILIRUBIN,TOTAL 0.5 MG/DL (0.2-1.0); BLOOD UREA NITROGEN 19 MG/DL (7-18); CALCIUM LEVEL 8.3 MG/DL (8.8-10.2); CARBON DIOXIDE LEVEL 29 MEQ/L (21-32); CHLORIDE LEVEL 107 MEQ/L (98-107); CREATININE FOR GFR 0.66 MG/DL (0.55-1.30); GLOMERULAR FILTRATION RATE > 60.0 (>32); GLUCOSE, FASTING 119 MG/DL (70-100); POTASSIUM SERUM 3.4 MEQ/L (3.5-5.1); SODIUM LEVEL 143 MEQ/L (136-145); TOTAL PROTEIN 5.7 GM/DL (6.4-8.2)
[2017-10-19] MEDS: SITagliptin 50 MG TAB (JANUVIA) PO (08:54)
[2017-10-19] MEDS: LIDOCAINE 5% (LIDODERM) PATCH TD (08:54)
[2017-10-19] MEDS: IBUPROFEN 800 MG TAB PO ×2 (08:54→17:25)
[2017-10-19] MEDS: GABAPENTIN 100 MG CAP PO ×3 (08:54→20:43)
[2017-10-19] MEDS: CYANOCOBALAMIN 500 MCG TAB PO (08:54)
[2017-10-19] MEDS: DOCUSATE SODIUM 100 MG CAP PO ×2 (08:57→20:43)
[2017-10-19] MEDS: LOSARTAN 50 MG TAB PO (08:57)
[2017-10-19] MEDS: SANTYL OINT 30GM TOP (09:10)
[2017-10-19] MEDS: **NOTE PATIENT COMMENT** MISC XX (20:43)
[2017-10-19] MEDS: PRAMIPEXOLE 0.25 MG TAB PO (20:43)
[2017-10-20] MEDS: glipiZIDE *XL* 2.5MG TABLET PO (06:51)
[2017-10-20] MEDS: LEVOTHYROXINE 100MCG TABLET (0.1MG) PO (06:51)
[2017-10-20] MEDS: POTASSIUM CHLORIDE 10% LIQ 20 MEQ/15 ML UDC PO (06:52)
[2017-10-20 07:50] LABS: HEMATOCRIT 37.3 % (36.0-47.0); HEMOGLOBIN 12.6 g/dl (12.0-16.0); MEAN CORPUSCULAR HEMOGLOBIN 33.4 pg (27.0-33.0); MEAN CORPUSCULAR HGB CONC 33.8 g/dl (32.0-36.5); MEAN CORPUSCULAR VOLUME 98.9 fl (80.0-96.0); PLATELET COUNT, AUTOMATED 134 10^3/uL (150-450); RED BLOOD COUNT 3.77 10^6/uL (4.00-5.40); RED CELL DISTRIBUTION WIDTH 13.7 % (11.5-14.5); WHITE BLOOD COUNT 3.7 10^3/uL (4.0-10.0)
[2017-10-20 08:18] LABS: ALBUMIN 2.8 GM/DL (3.2-5.2); ALKALINE PHOSPHATASE 177 U/L (45-117); ALT/SGPT 21 U/L (12-78); ANION GAP 8 MEQ/L (8-16); AST/SGOT 25 U/L (7-37); BILIRUBIN,TOTAL 0.5 MG/DL (0.2-1.0); BLOOD UREA NITROGEN 18 MG/DL (7-18); CALCIUM LEVEL 8.4 MG/DL (8.8-10.2); CARBON DIOXIDE LEVEL 26 MEQ/L (21-32); CHLORIDE LEVEL 111 MEQ/L (98-107); CREATININE FOR GFR 0.69 MG/DL (0.55-1.30); GLOMERULAR FILTRATION RATE > 60.0 (>32); GLUCOSE, FASTING 136 MG/DL (70-100); SODIUM LEVEL 145 MEQ/L (136-145); TOTAL PROTEIN 6.3 GM/DL (6.4-8.2)
[2017-10-20] MEDS: CYANOCOBALAMIN 500 MCG TAB PO (08:52)
[2017-10-20] MEDS: DOCUSATE SODIUM 100 MG CAP PO ×2 (08:52→21:38)
[2017-10-20] MEDS: GABAPENTIN 100 MG CAP PO ×3 (08:52→21:38)
[2017-10-20] MEDS: SANTYL OINT 30GM TOP (08:53)
[2017-10-20] MEDS: IBUPROFEN 800 MG TAB PO ×2 (08:53→17:11)
[2017-10-20] MEDS: LOSARTAN 50 MG TAB PO (08:53)
[2017-10-20] MEDS: SITagliptin 50 MG TAB (JANUVIA) PO (08:53)
[2017-10-20] MEDS: LIDOCAINE 5% (LIDODERM) PATCH TD (08:53)
[2017-10-20 08:57] LABS: BEDSIDE GLUCOSE 151 MG/DL (83-110)
[2017-10-20 17:25] LABS: BEDSIDE GLUCOSE 201 MG/DL (83-110)
[2017-10-20] MEDS: PRAMIPEXOLE 0.25 MG TAB PO (21:38)
[2017-10-20] MEDS: **NOTE PATIENT COMMENT** MISC XX (21:38)
[2017-10-21 06:31] LABS: BEDSIDE GLUCOSE 125 MG/DL (83-110)
[2017-10-21] MEDS: LEVOTHYROXINE 100MCG TABLET (0.1MG) PO (06:54)
[2017-10-21] MEDS: IBUPROFEN 800 MG TAB PO ×2 (06:54→17:20)
[2017-10-21] MEDS: SITagliptin 50 MG TAB (JANUVIA) PO (06:55)
[2017-10-21] MEDS: glipiZIDE *XL* 2.5MG TABLET PO (06:55)
[2017-10-21 07:19] LABS: HEMATOCRIT 39.2 % (36.0-47.0); HEMOGLOBIN 13.2 g/dl (12.0-16.0); MEAN CORPUSCULAR HEMOGLOBIN 33.2 pg (27.0-33.0); MEAN CORPUSCULAR HGB CONC 33.7 g/dl (32.0-36.5); MEAN CORPUSCULAR VOLUME 98.7 fl (80.0-96.0); PLATELET COUNT, AUTOMATED 161 10^3/uL (150-450); RED BLOOD COUNT 3.97 10^6/uL (4.00-5.40); RED CELL DISTRIBUTION WIDTH 13.8 % (11.5-14.5)
[2017-10-21 07:40] LABS: APPEARANCE, URINE CLEAR (CLEAR); BACTERIA, URINE AUTO NEGATIVE (NEGATIVE); BILIRUBIN, URINE AUTO NEGATIVE (NEGATIVE); BLOOD, URINE BLOOD NEGATIVE (NEGATIVE); COLOR, URINE STRAW (YELLOW); GLUCOSE, URINE (UA) AUTO NEGATIVE (NEGATIVE); KETONE, URINE AUTO NEGATIVE (NEGATIVE); LEUKOCYTE ESTERASE, URINE AUTO NEGATIVE (NEGATIVE); NITRITE, URINE AUTO NEGATIVE (NEGATIVE); PROTEIN, URINE AUTO NEGATIVE (NEGATIVE); RBC, URINE AUTO 0 /HPF (0-3); SPECIFIC GRAVITY URINE AUTO 1.006 (1.002-1.035); SQUAMOUS EPITHELIAL CELL UR AU 0 /HPF (0-6); UROBILINOGEN, URINE AUTO 0.2 mg/dL (0.0-2.0); WBC, URINE AUTO 0 /HPF (0-3)
[2017-10-21 07:51] LABS: ALBUMIN/GLOBULIN RATIO 0.86 (1.00-1.93); ALKALINE PHOSPHATASE 146 U/L (45-117); ALT/SGPT 20 U/L (12-78); ANION GAP 7 MEQ/L (8-16); AST/SGOT 24 U/L (7-37); BILIRUBIN,TOTAL 0.6 MG/DL (0.2-1.0); BLOOD UREA NITROGEN 16 MG/DL (7-18); CALCIUM LEVEL 8.8 MG/DL (8.8-10.2); CARBON DIOXIDE LEVEL 27 MEQ/L (21-32); CHLORIDE LEVEL 109 MEQ/L (98-107); CREATININE FOR GFR 0.62 MG/DL (0.55-1.30); GLOMERULAR FILTRATION RATE > 60.0 (>32); GLUCOSE, FASTING 130 MG/DL (70-100); POTASSIUM SERUM 4.1 MEQ/L (3.5-5.1); SODIUM LEVEL 143 MEQ/L (136-145); TOTAL PROTEIN 6.5 GM/DL (6.4-8.2)
[2017-10-21] MEDS: GABAPENTIN 100 MG CAP PO ×3 (09:42→21:26)
[2017-10-21] MEDS: LOSARTAN 50 MG TAB PO (09:42)
[2017-10-21] MEDS: DOCUSATE SODIUM 100 MG CAP PO ×2 (09:42→21:26)
[2017-10-21] MEDS: CYANOCOBALAMIN 500 MCG TAB PO (09:42)
[2017-10-21] MEDS: LIDOCAINE 5% (LIDODERM) PATCH TD (09:42)
[2017-10-21] MEDS: SANTYL OINT 30GM TOP (11:58)
[2017-10-21] MEDS: CitaloPRAM (CeleXA) 10 MG TABLET PO (15:13)
[2017-10-21 17:29] LABS: BEDSIDE GLUCOSE 222 MG/DL (83-110)
[2017-10-21] MEDS: **NOTE PATIENT COMMENT** MISC XX (21:00)
[2017-10-21] MEDS: PRAMIPEXOLE 0.25 MG TAB PO (21:26)
[2017-10-22] MEDS: LEVOTHYROXINE 100MCG TABLET (0.1MG) PO (06:01)
[2017-10-22 06:24] LABS: BEDSIDE GLUCOSE 155 MG/DL (83-110)
[2017-10-22] MEDS: glipiZIDE *XL* 2.5MG TABLET PO (06:34)
[2017-10-22 07:20] LABS: HEMATOCRIT 40.3 % (36.0-47.0); HEMOGLOBIN 13.4 g/dl (12.0-16.0); MEAN CORPUSCULAR HEMOGLOBIN 33.2 pg (27.0-33.0); MEAN CORPUSCULAR HGB CONC 33.3 g/dl (32.0-36.5); MEAN CORPUSCULAR VOLUME 99.8 fl (80.0-96.0); PLATELET COUNT, AUTOMATED 157 10^3/uL (150-450); RED BLOOD COUNT 4.04 10^6/uL (4.00-5.40); RED CELL DISTRIBUTION WIDTH 13.5 % (11.5-14.5); WHITE BLOOD COUNT 4.3 10^3/uL (4.0-10.0)
[2017-10-22 07:43] LABS: ALBUMIN 3.1 GM/DL (3.2-5.2); ALBUMIN/GLOBULIN RATIO 0.78 (1.00-1.93); ALKALINE PHOSPHATASE 173 U/L (45-117); ALT/SGPT 23 U/L (12-78); ANION GAP 5 MEQ/L (8-16); AST/SGOT 32 U/L (7-37); BILIRUBIN,TOTAL 0.5 MG/DL (0.2-1.0); BLOOD UREA NITROGEN 15 MG/DL (7-18); CALCIUM LEVEL 9.2 MG/DL (8.8-10.2); CARBON DIOXIDE LEVEL 28 MEQ/L (21-32); CHLORIDE LEVEL 106 MEQ/L (98-107); CREATININE FOR GFR 0.71 MG/DL (0.55-1.30); GLOMERULAR FILTRATION RATE > 60.0 (>32); GLUCOSE, FASTING 184 MG/DL (70-100); POTASSIUM SERUM 3.8 MEQ/L (3.5-5.1); SODIUM LEVEL 139 MEQ/L (136-145); TOTAL PROTEIN 7.1 GM/DL (6.4-8.2)
[2017-10-22] MEDS: SITagliptin 50 MG TAB (JANUVIA) PO (08:40)
[2017-10-22] MEDS: DOCUSATE SODIUM 100 MG CAP PO ×2 (08:40→21:09)
[2017-10-22] MEDS: GABAPENTIN 100 MG CAP PO ×3 (08:40→21:09)
[2017-10-22] MEDS: CitaloPRAM (CeleXA) 10 MG TABLET PO (08:41)
[2017-10-22] MEDS: LOSARTAN 50 MG TAB PO (08:41)
[2017-10-22] MEDS: CYANOCOBALAMIN 500 MCG TAB PO (08:42)
[2017-10-22] MEDS: LIDOCAINE 5% (LIDODERM) PATCH TD (08:43)
[2017-10-22] MEDS: IBUPROFEN 800 MG TAB PO ×2 (08:43→17:09)
[2017-10-22] MEDS: SANTYL OINT 30GM TOP (08:44)
[2017-10-22 16:48] LABS: BEDSIDE GLUCOSE 123 MG/DL (83-110)
[2017-10-22] MEDS: **NOTE PATIENT COMMENT** MISC XX (21:00)
[2017-10-22] MEDS: PRAMIPEXOLE 0.25 MG TAB PO (21:09)
[2017-10-23] MEDS: LEVOTHYROXINE 100MCG TABLET (0.1MG) PO (06:00)
[2017-10-23] MEDS: LevoFLOXacin 250 MG TABLET PO (06:00)
[2017-10-23 06:28] LABS: BEDSIDE GLUCOSE 124 MG/DL (83-110)
[2017-10-23] MEDS: glipiZIDE *XL* 2.5MG TABLET PO (06:53)
[2017-10-23 07:32] LABS: HEMATOCRIT 40.5 % (36.0-47.0); HEMOGLOBIN 13.5 g/dl (12.0-16.0); MEAN CORPUSCULAR HEMOGLOBIN 32.5 pg (27.0-33.0); MEAN CORPUSCULAR HGB CONC 33.3 g/dl (32.0-36.5); MEAN CORPUSCULAR VOLUME 97.4 fl (80.0-96.0); PLATELET COUNT, AUTOMATED 173 10^3/uL (150-450); RED BLOOD COUNT 4.16 10^6/uL (4.00-5.40); RED CELL DISTRIBUTION WIDTH 13.5 % (11.5-14.5); WHITE BLOOD COUNT 4.8 10^3/uL (4.0-10.0)
[2017-10-23] MEDS: IBUPROFEN 800 MG TAB PO ×2 (07:36→17:05)
[2017-10-23] MEDS: SITagliptin 50 MG TAB (JANUVIA) PO (07:36)
[2017-10-23 07:48] LABS: ALBUMIN 3.2 GM/DL (3.2-5.2); ALBUMIN/GLOBULIN RATIO 0.91 (1.00-1.93); ALKALINE PHOSPHATASE 171 U/L (45-117); ALT/SGPT 23 U/L (12-78); ANION GAP 9 MEQ/L (8-16); AST/SGOT 33 U/L (7-37); BILIRUBIN,TOTAL 0.6 MG/DL (0.2-1.0); BLOOD UREA NITROGEN 17 MG/DL (7-18); CALCIUM LEVEL 9.2 MG/DL (8.8-10.2); CARBON DIOXIDE LEVEL 28 MEQ/L (21-32); CHLORIDE LEVEL 104 MEQ/L (98-107); GLOMERULAR FILTRATION RATE > 60.0 (>32); GLUCOSE, FASTING 159 MG/DL (70-100); SODIUM LEVEL 141 MEQ/L (136-145); TOTAL PROTEIN 6.7 GM/DL (6.4-8.2)
[2017-10-23] MEDS: LOSARTAN 50 MG TAB PO (09:00)
[2017-10-23] MEDS ORDERED: NITROFURANTOIN (MACROBID) 100 MG CAP PO (09:00)
[2017-10-23] MEDS: CYANOCOBALAMIN 500 MCG TAB PO (09:20)
[2017-10-23] MEDS: DOCUSATE SODIUM 100 MG CAP PO ×2 (09:20→20:27)
[2017-10-23] MEDS: LIDOCAINE 5% (LIDODERM) PATCH TD (09:20)
[2017-10-23] MEDS: GABAPENTIN 100 MG CAP PO ×3 (09:20→20:29)
[2017-10-23] MEDS: CitaloPRAM (CeleXA) 10 MG TABLET PO (09:21)
[2017-10-23] MEDS: CEPHALEXIN 500 MG CAP PO ×2 (09:21→20:27)
[2017-10-23] MEDS: SANTYL OINT 30GM TOP (14:32)
[2017-10-23 18:12] LABS: BEDSIDE GLUCOSE 208 MG/DL (83-110)
[2017-10-23] MEDS: PRAMIPEXOLE 0.25 MG TAB PO (20:27)
[2017-10-23] MEDS: **NOTE PATIENT COMMENT** MISC XX (20:29)
[2017-10-24] MEDS: LEVOTHYROXINE 100MCG TABLET (0.1MG) PO (06:12)
[2017-10-24] MEDS: glipiZIDE *XL* 2.5MG TABLET PO (06:44)
[2017-10-24 06:47] LABS: HEMATOCRIT 38.7 % (36.0-47.0); HEMOGLOBIN 13.1 g/dl (12.0-16.0); MEAN CORPUSCULAR HEMOGLOBIN 32.6 pg (27.0-33.0); MEAN CORPUSCULAR HGB CONC 33.9 g/dl (32.0-36.5); MEAN CORPUSCULAR VOLUME 96.3 fl (80.0-96.0); PLATELET COUNT, AUTOMATED 141 10^3/uL (150-450); RED BLOOD COUNT 4.02 10^6/uL (4.00-5.40); RED CELL DISTRIBUTION WIDTH 13.7 % (11.5-14.5); WHITE BLOOD COUNT 4.5 10^3/uL (4.0-10.0)
[2017-10-24 07:01] LABS: BEDSIDE GLUCOSE 162 MG/DL (83-110)
[2017-10-24 07:11] LABS: ALBUMIN/GLOBULIN RATIO 0.86 (1.00-1.93); ALKALINE PHOSPHATASE 169 U/L (45-117); ALT/SGPT 25 U/L (12-78); ANION GAP 7 MEQ/L (8-16); AST/SGOT 39 U/L (7-37); BILIRUBIN,TOTAL 0.6 MG/DL (0.2-1.0); BLOOD UREA NITROGEN 21 MG/DL (7-18); CALCIUM LEVEL 9.1 MG/DL (8.8-10.2); CARBON DIOXIDE LEVEL 28 MEQ/L (21-32); CHLORIDE LEVEL 106 MEQ/L (98-107); CREATININE FOR GFR 0.73 MG/DL (0.55-1.30); GLOMERULAR FILTRATION RATE > 60.0 (>32); GLUCOSE, FASTING 160 MG/DL (70-100); POTASSIUM SERUM 3.8 MEQ/L (3.5-5.1); SODIUM LEVEL 141 MEQ/L (136-145); TOTAL PROTEIN 6.5 GM/DL (6.4-8.2)
[2017-10-24] MEDS: SITagliptin 50 MG TAB (JANUVIA) PO (07:18)
[2017-10-24] MEDS: IBUPROFEN 800 MG TAB PO ×2 (07:20→17:10)
[2017-10-24] MEDS: CYANOCOBALAMIN 500 MCG TAB PO (08:32)
[2017-10-24] MEDS: CEPHALEXIN 500 MG CAP PO ×2 (08:33→22:06)
[2017-10-24] MEDS: DOCUSATE SODIUM 100 MG CAP PO ×2 (08:33→22:06)
[2017-10-24] MEDS: LOSARTAN 50 MG TAB PO (08:33)
[2017-10-24] MEDS: CitaloPRAM (CeleXA) 10 MG TABLET PO (08:33)
[2017-10-24] MEDS: LIDOCAINE 5% (LIDODERM) PATCH TD (08:33)
[2017-10-24] MEDS: GABAPENTIN 100 MG CAP PO ×3 (08:33→22:06)
[2017-10-24 17:28] LABS: BEDSIDE GLUCOSE 144 MG/DL (83-110)
[2017-10-24] MEDS: **NOTE PATIENT COMMENT** MISC XX (21:00)
[2017-10-24] MEDS: PRAMIPEXOLE 0.25 MG TAB PO (22:06)
[2017-10-25] MEDS ORDERED: LEVOTHYROXINE 100MCG TABLET (0.1MG) As Ordered (06:06)
[2017-10-25] MEDS: LEVOTHYROXINE 100MCG TABLET (0.1MG) PO (06:11)
[2017-10-25 07:11] LABS: BEDSIDE GLUCOSE 189 MG/DL (83-110)
[2017-10-25] MEDS: glipiZIDE *XL* 2.5MG TABLET PO (07:24)
[2017-10-25] MEDS: SITagliptin 50 MG TAB (JANUVIA) PO (08:00)
[2017-10-25] MEDS: DOCUSATE SODIUM 100 MG CAP PO ×2 (09:21→20:52)
[2017-10-25] MEDS: GABAPENTIN 100 MG CAP PO ×3 (09:21→20:52)
[2017-10-25] MEDS: IBUPROFEN 800 MG TAB PO ×2 (09:22→18:01)
[2017-10-25] MEDS: CitaloPRAM (CeleXA) 10 MG TABLET PO (09:22)
[2017-10-25] MEDS: LOSARTAN 50 MG TAB PO (09:22)
[2017-10-25] MEDS: CEPHALEXIN 500 MG CAP PO ×2 (09:22→20:52)
[2017-10-25] MEDS: CYANOCOBALAMIN 500 MCG TAB PO (09:23)
[2017-10-25] MEDS: LIDOCAINE 5% (LIDODERM) PATCH TD (09:23)
[2017-10-25] MEDS: PRAMIPEXOLE 0.25 MG TAB PO (20:52)
[2017-10-25] MEDS: **NOTE PATIENT COMMENT** MISC XX (21:36)
[2017-10-26] MEDS: LEVOTHYROXINE 100MCG TABLET (0.1MG) PO (06:30)
[2017-10-26] MEDS: glipiZIDE *XL* 2.5MG TABLET PO (06:33)
[2017-10-26 06:42] LABS: HEMATOCRIT 37.3 % (36.0-47.0); HEMOGLOBIN 12.8 g/dl (12.0-16.0); MEAN CORPUSCULAR HEMOGLOBIN 33.2 pg (27.0-33.0); MEAN CORPUSCULAR HGB CONC 34.3 g/dl (32.0-36.5); MEAN CORPUSCULAR VOLUME 96.6 fl (80.0-96.0); PLATELET COUNT, AUTOMATED 142 10^3/uL (150-450); RED BLOOD COUNT 3.86 10^6/uL (4.00-5.40); RED CELL DISTRIBUTION WIDTH 13.5 % (11.5-14.5); WHITE BLOOD COUNT 3.5 10^3/uL (4.0-10.0)
[2017-10-26 06:49] LABS: BEDSIDE GLUCOSE 209 MG/DL (83-110)
[2017-10-26 06:49] LABS: BEDSIDE GLUCOSE 273 MG/DL (83-110)
[2017-10-26 07:07] LABS: ALBUMIN 2.9 GM/DL (3.2-5.2); ALBUMIN/GLOBULIN RATIO 0.81 (1.00-1.93); ALKALINE PHOSPHATASE 170 U/L (45-117); ALT/SGPT 28 U/L (12-78); ANION GAP 8 MEQ/L (8-16); AST/SGOT 37 U/L (7-37); BILIRUBIN,TOTAL 0.6 MG/DL (0.2-1.0); BLOOD UREA NITROGEN 21 MG/DL (7-18); CALCIUM LEVEL 8.6 MG/DL (8.8-10.2); CARBON DIOXIDE LEVEL 26 MEQ/L (21-32); CHLORIDE LEVEL 108 MEQ/L (98-107); CREATININE FOR GFR 0.65 MG/DL (0.55-1.30); GLOMERULAR FILTRATION RATE > 60.0 (>32); GLUCOSE, FASTING 195 MG/DL (70-100); SODIUM LEVEL 142 MEQ/L (136-145); TOTAL PROTEIN 6.5 GM/DL (6.4-8.2)
[2017-10-26] MEDS: LOSARTAN 50 MG TAB PO (09:24)
[2017-10-26] MEDS: CitaloPRAM (CeleXA) 10 MG TABLET PO (09:24)
[2017-10-26] MEDS: IBUPROFEN 800 MG TAB PO ×2 (09:24→18:31)
[2017-10-26] MEDS: CYANOCOBALAMIN 500 MCG TAB PO (09:24)
[2017-10-26] MEDS: SITagliptin 50 MG TAB (JANUVIA) PO (09:24)
[2017-10-26] MEDS: DOCUSATE SODIUM 100 MG CAP PO ×2 (09:25→20:51)
[2017-10-26] MEDS: CEPHALEXIN 500 MG CAP PO ×2 (09:25→20:52)
[2017-10-26] MEDS: GABAPENTIN 100 MG CAP PO ×3 (09:25→20:52)
[2017-10-26] MEDS: LIDOCAINE 5% (LIDODERM) PATCH TD (09:26)
[2017-10-26 17:23] LABS: BEDSIDE GLUCOSE 218 MG/DL (83-110)
[2017-10-26] MEDS: **NOTE PATIENT COMMENT** MISC XX (21:00)
[2017-10-26] MEDS: PRAMIPEXOLE 0.25 MG TAB PO (21:31)
[2017-10-27 05:17] LABS: BEDSIDE GLUCOSE 206 MG/DL (83-110)
[2017-10-27] MEDS: LEVOTHYROXINE 100MCG TABLET (0.1MG) PO (05:49)
[2017-10-27] MEDS: glipiZIDE *XL* 2.5MG TABLET PO (07:22)
[2017-10-27] MEDS: DOCUSATE SODIUM 100 MG CAP PO ×2 (09:22→21:35)
[2017-10-27] MEDS: CitaloPRAM (CeleXA) 10 MG TABLET PO (09:22)
[2017-10-27] MEDS: CEPHALEXIN 500 MG CAP PO ×2 (09:22→21:34)
[2017-10-27] MEDS: SITagliptin 50 MG TAB (JANUVIA) PO (09:22)
[2017-10-27] MEDS: CYANOCOBALAMIN 500 MCG TAB PO (09:22)
[2017-10-27] MEDS: LOSARTAN 50 MG TAB PO (09:22)
[2017-10-27] MEDS: GABAPENTIN 100 MG CAP PO ×3 (09:22→21:35)
[2017-10-27] MEDS: LIDOCAINE 5% (LIDODERM) PATCH TD (09:23)
[2017-10-27] MEDS: IBUPROFEN 800 MG TAB PO ×2 (09:24→17:14)
[2017-10-27 16:57] LABS: BEDSIDE GLUCOSE 202 MG/DL (83-110)
[2017-10-27] MEDS: PRAMIPEXOLE 0.25 MG TAB PO (21:34)
[2017-10-27] MEDS: **NOTE PATIENT COMMENT** MISC XX (21:54)
[2017-10-28] MEDS: LEVOTHYROXINE 100MCG TABLET (0.1MG) PO (05:58)
[2017-10-28 06:27] LABS: BEDSIDE GLUCOSE 214 MG/DL (83-110)
[2017-10-28] MEDS: glipiZIDE *XL* 2.5MG TABLET PO (06:39)
[2017-10-28 08:19] LABS: HEMATOCRIT 39.9 % (36.0-47.0); HEMOGLOBIN 13.6 g/dl (12.0-16.0); MEAN CORPUSCULAR HEMOGLOBIN 32.9 pg (27.0-33.0); MEAN CORPUSCULAR HGB CONC 34.1 g/dl (32.0-36.5); MEAN CORPUSCULAR VOLUME 96.6 fl (80.0-96.0); PLATELET COUNT, AUTOMATED 156 10^3/uL (150-450); RED BLOOD COUNT 4.13 10^6/uL (4.00-5.40); RED CELL DISTRIBUTION WIDTH 13.7 % (11.5-14.5)
[2017-10-28 08:48] LABS: ALBUMIN 3.3 GM/DL (3.2-5.2); ALBUMIN/GLOBULIN RATIO 0.97 (1.00-1.93); ALKALINE PHOSPHATASE 177 U/L (45-117); ALT/SGPT 28 U/L (12-78); ANION GAP 8 MEQ/L (8-16); AST/SGOT 43 U/L (7-37); BILIRUBIN,TOTAL 0.6 MG/DL (0.2-1.0); BLOOD UREA NITROGEN 17 MG/DL (7-18); CARBON DIOXIDE LEVEL 27 MEQ/L (21-32); CHLORIDE LEVEL 105 MEQ/L (98-107); CREATININE FOR GFR 0.71 MG/DL (0.55-1.30); GLOMERULAR FILTRATION RATE > 60.0 (>32); GLUCOSE, FASTING 227 MG/DL (70-100); SODIUM LEVEL 140 MEQ/L (136-145); TOTAL PROTEIN 6.7 GM/DL (6.4-8.2)
[2017-10-28] MEDS ORDERED: **PENDING PPD ENTRY XX (09:00)
[2017-10-28] MEDS: CEPHALEXIN 500 MG CAP PO ×2 (10:03→20:49)
[2017-10-28] MEDS: CYANOCOBALAMIN 500 MCG TAB PO (10:06)
[2017-10-28] MEDS: SITagliptin 50 MG TAB (JANUVIA) PO (10:06)
[2017-10-28] MEDS: CitaloPRAM (CeleXA) 10 MG TABLET PO (10:06)
[2017-10-28] MEDS: LIDOCAINE 5% (LIDODERM) PATCH TD (10:06)
[2017-10-28] MEDS: IBUPROFEN 800 MG TAB PO ×2 (10:07→18:22)
[2017-10-28] MEDS: LOSARTAN 50 MG TAB PO (10:07)
[2017-10-28] MEDS: DOCUSATE SODIUM 100 MG CAP PO ×2 (10:07→20:49)
[2017-10-28] MEDS: GABAPENTIN 100 MG CAP PO ×3 (10:07→20:48)
[2017-10-28 18:57] LABS: BEDSIDE GLUCOSE 166 MG/DL (83-110)
[2017-10-28] MEDS: **NOTE PATIENT COMMENT** MISC XX (20:49)
[2017-10-28] MEDS: PRAMIPEXOLE 0.25 MG TAB PO (20:49)
[2017-10-29] MEDS: LEVOTHYROXINE 100MCG TABLET (0.1MG) PO (05:59)
[2017-10-29 06:17] LABS: BEDSIDE GLUCOSE 200 MG/DL (83-110)
[2017-10-29] MEDS: glipiZIDE *XL* 2.5MG TABLET PO (06:33)
[2017-10-29] MEDS: CitaloPRAM (CeleXA) 10 MG TABLET PO (09:29)
[2017-10-29] MEDS: DOCUSATE SODIUM 100 MG CAP PO ×2 (09:29→21:36)
[2017-10-29] MEDS: LOSARTAN 50 MG TAB PO (09:29)
[2017-10-29] MEDS: CYANOCOBALAMIN 500 MCG TAB PO (09:29)
[2017-10-29] MEDS: SITagliptin 50 MG TAB (JANUVIA) PO (09:29)
[2017-10-29] MEDS: CEPHALEXIN 500 MG CAP PO ×2 (09:29→21:36)
[2017-10-29] MEDS: GABAPENTIN 100 MG CAP PO ×3 (09:29→21:36)
[2017-10-29] MEDS: LIDOCAINE 5% (LIDODERM) PATCH TD (09:30)
[2017-10-29] MEDS: IBUPROFEN 800 MG TAB PO ×2 (09:35→17:03)
[2017-10-29] MEDS ORDERED: TUBERCULIN PPD 5 UNITS/0.1 ML ID (10:00)
[2017-10-29] MEDS: NYSTATIN 100,000 UNITS/GM TOPICAL PWD 15 GM TOP ×2 (10:25→21:00)
[2017-10-29] MEDS: TUBERCULIN PPD 5 UNITS/0.1 ML ID (15:33)
[2017-10-29] MEDS: **NOTE PATIENT COMMENT** MISC XX (21:34)
[2017-10-29] MEDS: PRAMIPEXOLE 0.25 MG TAB PO (21:36)
[2017-10-30] MEDS: MAALOX 30 ML SUSP *UDC PO (00:48)
[2017-10-30] MEDS: LEVOTHYROXINE 100MCG TABLET (0.1MG) PO (06:15)
[2017-10-30] MEDS: glipiZIDE *XL* 2.5MG TABLET PO (06:38)
[2017-10-30 07:37] LABS: HEMATOCRIT 42.3 % (36.0-47.0); HEMOGLOBIN 14.4 g/dl (12.0-16.0); MEAN CORPUSCULAR HEMOGLOBIN 32.9 pg (27.0-33.0); MEAN CORPUSCULAR VOLUME 96.6 fl (80.0-96.0); PLATELET COUNT, AUTOMATED 128 10^3/uL (150-450); RED BLOOD COUNT 4.38 10^6/uL (4.00-5.40); RED CELL DISTRIBUTION WIDTH 13.3 % (11.5-14.5); WHITE BLOOD COUNT 9.3 10^3/uL (4.0-10.0)
[2017-10-30 08:05] LABS: ALBUMIN 3.1 GM/DL (3.2-5.2); ALBUMIN/GLOBULIN RATIO 0.84 (1.00-1.93); ALKALINE PHOSPHATASE 159 U/L (45-117); ALT/SGPT 26 U/L (12-78); ANION GAP 12 MEQ/L (8-16); AST/SGOT 31 U/L (7-37); BILIRUBIN,TOTAL 1.1 MG/DL (0.2-1.0); BLOOD UREA NITROGEN 28 MG/DL (7-18); CALCIUM LEVEL 8.7 MG/DL (8.8-10.2); CARBON DIOXIDE LEVEL 23 MEQ/L (21-32); CHLORIDE LEVEL 104 MEQ/L (98-107); CREATININE FOR GFR 0.87 MG/DL (0.55-1.30); GLOMERULAR FILTRATION RATE > 60.0 (>32); GLUCOSE, FASTING 321 MG/DL (70-100); POTASSIUM SERUM 3.9 MEQ/L (3.5-5.1); SODIUM LEVEL 139 MEQ/L (136-145); TOTAL PROTEIN 6.8 GM/DL (6.4-8.2)
[2017-10-30] MEDS: DOCUSATE SODIUM 100 MG CAP PO ×2 (09:00→21:47)
[2017-10-30] MEDS: CYANOCOBALAMIN 500 MCG TAB PO (09:26)
[2017-10-30] MEDS: IBUPROFEN 800 MG TAB PO ×2 (09:27→17:03)
[2017-10-30] MEDS: LACTOBACILLUS ACIDOPHILUS CAP (BACID) PO ×2 (09:27→21:47)
[2017-10-30] MEDS: LOSARTAN 50 MG TAB PO (09:27)
[2017-10-30] MEDS: CEPHALEXIN 500 MG CAP PO ×2 (09:27→21:47)
[2017-10-30] MEDS: GABAPENTIN 100 MG CAP PO ×3 (09:27→21:47)
[2017-10-30] MEDS: CitaloPRAM (CeleXA) 10 MG TABLET PO (09:27)
[2017-10-30] MEDS: SITagliptin 50 MG TAB (JANUVIA) PO (09:27)
[2017-10-30] MEDS: LIDOCAINE 5% (LIDODERM) PATCH TD (09:28)
[2017-10-30] MEDS: NYSTATIN 100,000 UNITS/GM TOPICAL PWD 15 GM TOP ×2 (09:50→21:49)
[2017-10-30] MEDS ORDERED: PPD DOCUMENTATION ENTRY MISC XX (10:00)
[2017-10-30 10:40] LABS: BEDSIDE GLUCOSE 209 MG/DL (83-110)
[2017-10-30 17:29] LABS: BEDSIDE GLUCOSE 143 MG/DL (83-110)
[2017-10-30] MEDS: PRAMIPEXOLE 0.25 MG TAB PO (21:47)
[2017-10-30] MEDS: **NOTE PATIENT COMMENT** MISC XX (21:48)
[2017-10-30] MEDS: QUEtiapine FUMARATE 25 MG TAB PO (22:57)
[2017-10-31] MEDS: LEVOTHYROXINE 100MCG TABLET (0.1MG) PO (06:31)
[2017-10-31 06:42] LABS: BEDSIDE GLUCOSE 138 MG/DL (83-110)
[2017-10-31] MEDS: glipiZIDE *XL* 2.5MG TABLET PO (07:08)
[2017-10-31] MEDS: CYANOCOBALAMIN 500 MCG TAB PO (08:54)
[2017-10-31] MEDS: LOSARTAN 50 MG TAB PO (08:55)
[2017-10-31] MEDS: IBUPROFEN 800 MG TAB PO ×2 (08:55→17:00)
[2017-10-31] MEDS: LACTOBACILLUS ACIDOPHILUS CAP (BACID) PO ×2 (08:56→21:19)
[2017-10-31] MEDS: CEPHALEXIN 500 MG CAP PO ×2 (08:56→21:19)
[2017-10-31] MEDS: DOCUSATE SODIUM 100 MG CAP PO ×2 (08:56→21:19)
[2017-10-31] MEDS: CitaloPRAM (CeleXA) 10 MG TABLET PO (08:56)
[2017-10-31] MEDS: GABAPENTIN 100 MG CAP PO ×3 (08:56→20:00)
[2017-10-31] MEDS: SITagliptin 50 MG TAB (JANUVIA) PO (08:56)
[2017-10-31] MEDS: LIDOCAINE 5% (LIDODERM) PATCH TD (08:57)
[2017-10-31] MEDS: NYSTATIN 100,000 UNITS/GM TOPICAL PWD 15 GM TOP ×2 (08:57→21:19)
[2017-10-31] MEDS: PPD DOCUMENTATION ENTRY MISC XX (13:06)
[2017-10-31 17:05] LABS: BEDSIDE GLUCOSE 90 MG/DL (83-110)
[2017-10-31] MEDS: **NOTE PATIENT COMMENT** MISC XX (21:19)
[2017-10-31] MEDS: PRAMIPEXOLE 0.25 MG TAB PO (21:19)
[2017-11-01 01:05] LABS: LACTIC ACID SEPSIS PROTOCOL 1.4 MMOL/L (0.4-2.0)
[2017-11-01] MEDS: FIDAXOMICIN 200 MG TAB (DIFICID) PO ×3 (03:02→20:51)
[2017-11-01] MEDS: LEVOTHYROXINE 100MCG TABLET (0.1MG) PO (05:48)
[2017-11-01 06:02] LABS: BEDSIDE GLUCOSE 211 MG/DL (83-110)
[2017-11-01] MEDS: glipiZIDE *XL* 2.5MG TABLET PO (07:11)
[2017-11-01] MEDS: CEPHALEXIN 500 MG CAP PO ×2 (09:08→20:51)
[2017-11-01] MEDS: PILL CUTTER/CRUSHER XX (09:08)
[2017-11-01] MEDS: NYSTATIN 100,000 UNITS/GM TOPICAL PWD 15 GM TOP ×2 (09:08→20:52)
[2017-11-01] MEDS: SITagliptin 50 MG TAB (JANUVIA) PO (09:08)
[2017-11-01] MEDS: GABAPENTIN 100 MG CAP PO ×3 (09:08→20:52)
[2017-11-01] MEDS: DOCUSATE SODIUM 100 MG CAP PO ×2 (09:09→20:51)
[2017-11-01] MEDS: LOSARTAN 50 MG TAB PO (09:09)
[2017-11-01] MEDS: LACTOBACILLUS ACIDOPHILUS CAP (BACID) PO ×2 (09:09→20:51)
[2017-11-01] MEDS: CitaloPRAM (CeleXA) 10 MG TABLET PO (09:09)
[2017-11-01] MEDS: CYANOCOBALAMIN 500 MCG TAB PO (09:09)
[2017-11-01] MEDS: LIDOCAINE 5% (LIDODERM) PATCH TD (09:10)
[2017-11-01] MEDS: IBUPROFEN 800 MG TAB PO ×2 (09:21→17:13)
[2017-11-01 09:27] LABS: HEMATOCRIT 41.6 % (36.0-47.0); HEMOGLOBIN 14.4 g/dl (12.0-16.0); MEAN CORPUSCULAR HEMOGLOBIN 32.7 pg (27.0-33.0); MEAN CORPUSCULAR HGB CONC 34.6 g/dl (32.0-36.5); MEAN CORPUSCULAR VOLUME 94.3 fl (80.0-96.0); PLATELET COUNT, AUTOMATED 159 10^3/uL (150-450); RED BLOOD COUNT 4.41 10^6/uL (4.00-5.40); RED CELL DISTRIBUTION WIDTH 13.6 % (11.5-14.5); WHITE BLOOD COUNT 12.6 10^3/uL (4.0-10.0)
[2017-11-01 09:47] LABS: ALBUMIN 3.2 GM/DL (3.2-5.2); ALBUMIN/GLOBULIN RATIO 0.97 (1.00-1.93); ALKALINE PHOSPHATASE 163 U/L (45-117); ALT/SGPT 21 U/L (12-78); ANION GAP 11 MEQ/L (8-16); AST/SGOT 26 U/L (7-37); BILIRUBIN,TOTAL 0.9 MG/DL (0.2-1.0); BLOOD UREA NITROGEN 19 MG/DL (7-18); CALCIUM LEVEL 8.1 MG/DL (8.8-10.2); CARBON DIOXIDE LEVEL 21 MEQ/L (21-32); CHLORIDE LEVEL 105 MEQ/L (98-107); CREATININE FOR GFR 0.67 MG/DL (0.55-1.30); GLOMERULAR FILTRATION RATE > 60.0 (>32); GLUCOSE, FASTING 193 MG/DL (70-100); POTASSIUM SERUM 3.3 MEQ/L (3.5-5.1); SODIUM LEVEL 137 MEQ/L (136-145); TOTAL PROTEIN 6.5 GM/DL (6.4-8.2)
[2017-11-01 17:13] LABS: HEMATOCRIT 39.3 % (36.0-47.0); HEMOGLOBIN 13.7 g/dl (12.0-16.0); MEAN CORPUSCULAR HGB CONC 34.9 g/dl (32.0-36.5); MEAN CORPUSCULAR VOLUME 94.7 fl (80.0-96.0); PLATELET COUNT, AUTOMATED 166 10^3/uL (150-450); RED BLOOD COUNT 4.15 10^6/uL (4.00-5.40); RED CELL DISTRIBUTION WIDTH 13.7 % (11.5-14.5); WHITE BLOOD COUNT 11.3 10^3/uL (4.0-10.0)
[2017-11-01] MEDS: POTASSIUM CHLORIDE 10 MEQ SR TABLET PO (17:13)
[2017-11-01 17:18] LABS: BEDSIDE GLUCOSE 147 MG/DL (83-110)
[2017-11-01 17:39] LABS: ANION GAP 10 MEQ/L (8-16); BLOOD UREA NITROGEN 19 MG/DL (7-18); CALCIUM LEVEL 8.3 MG/DL (8.8-10.2); CARBON DIOXIDE LEVEL 23 MEQ/L (21-32); CHLORIDE LEVEL 105 MEQ/L (98-107); CREATININE FOR GFR 0.69 MG/DL (0.55-1.30); GLOMERULAR FILTRATION RATE > 60.0 (>32); GLUCOSE, FASTING 134 MG/DL (70-100); POTASSIUM SERUM 3.2 MEQ/L (3.5-5.1); SODIUM LEVEL 138 MEQ/L (136-145)
[2017-11-01] MEDS: PRAMIPEXOLE 0.25 MG TAB PO (20:52)
[2017-11-01] MEDS: **NOTE PATIENT COMMENT** MISC XX (21:00)
[2017-11-02] MEDS: LEVOTHYROXINE 100MCG TABLET (0.1MG) PO (06:13)
[2017-11-02] MEDS: glipiZIDE *XL* 2.5MG TABLET PO (06:31)
[2017-11-02 07:36] LABS: HEMATOCRIT 35.9 % (36.0-47.0); HEMOGLOBIN 12.6 g/dl (12.0-16.0); MEAN CORPUSCULAR HEMOGLOBIN 33.1 pg (27.0-33.0); MEAN CORPUSCULAR HGB CONC 35.1 g/dl (32.0-36.5); MEAN CORPUSCULAR VOLUME 94.2 fl (80.0-96.0); PLATELET COUNT, AUTOMATED 130 10^3/uL (150-450); RED BLOOD COUNT 3.81 10^6/uL (4.00-5.40); RED CELL DISTRIBUTION WIDTH 13.5 % (11.5-14.5); WHITE BLOOD COUNT 5.4 10^3/uL (4.0-10.0)
[2017-11-02] MEDS: LOSARTAN 50 MG TAB PO (07:54)
[2017-11-02] MEDS: CitaloPRAM (CeleXA) 10 MG TABLET PO (07:54)
[2017-11-02] MEDS: SITagliptin 50 MG TAB (JANUVIA) PO (07:54)
[2017-11-02] MEDS: CYANOCOBALAMIN 500 MCG TAB PO (07:54)
[2017-11-02] MEDS: FIDAXOMICIN 200 MG TAB (DIFICID) PO (07:54)
[2017-11-02] MEDS: NYSTATIN 100,000 UNITS/GM TOPICAL PWD 15 GM TOP (07:55)
[2017-11-02] MEDS: GABAPENTIN 100 MG CAP PO (07:55)
[2017-11-02] MEDS: LACTOBACILLUS ACIDOPHILUS CAP (BACID) PO (07:55)
[2017-11-02] MEDS: LIDOCAINE 5% (LIDODERM) PATCH TD (07:55)
[2017-11-02] MEDS: IBUPROFEN 800 MG TAB PO (08:01)
[2017-11-02 08:10] LABS: ALBUMIN 2.8 GM/DL (3.2-5.2); ALBUMIN/GLOBULIN RATIO 0.97 (1.00-1.93); ALKALINE PHOSPHATASE 147 U/L (45-117); ALT/SGPT 20 U/L (12-78); ANION GAP 8 MEQ/L (8-16); AST/SGOT 25 U/L (7-37); BILIRUBIN,TOTAL 0.7 MG/DL (0.2-1.0); BLOOD UREA NITROGEN 17 MG/DL (7-18); CALCIUM LEVEL 8.1 MG/DL (8.8-10.2); CARBON DIOXIDE LEVEL 25 MEQ/L (21-32); CHLORIDE LEVEL 109 MEQ/L (98-107); CREATININE FOR GFR 0.64 MG/DL (0.55-1.30); GLOMERULAR FILTRATION RATE > 60.0 (>32); GLUCOSE, FASTING 162 MG/DL (70-100); POTASSIUM SERUM 3.6 MEQ/L (3.5-5.1); SODIUM LEVEL 142 MEQ/L (136-145); TOTAL PROTEIN 5.7 GM/DL (6.4-8.2)
== END 2017-11-02 13:30 | disposition short-term general hospital (02) | DRG 881 ==
LOC: M PSY 10-04 00:20 → M ED 13:50 → M ED INP 19:42
DX: F32.9 Major depressive disorder, single episode, unspecified (principal); D61.818 Other pancytopenia; A04.72 Enterocolitis due to Clostridium difficile, not specified as recurrent; A04.8 Other specified bacterial intestinal infections; N39.0 Urinary tract infection, site not specified; I12.9 Hypertensive chronic kidney disease with stage 1 through stage 4 chronic kidney disease, or unspecified chronic kidney disease; E11.9 Type 2 diabetes mellitus without complications; E03.9 Hypothyroidism, unspecified; M19.90 Unspecified osteoarthritis, unspecified site; N18.3 Chronic kidney disease, stage 3 (moderate); E83.119 Hemochromatosis, unspecified; I87.2 Venous insufficiency (chronic) (peripheral); Z79.899 Other long term (current) drug therapy; R26.89 Other abnormalities of gait and mobility; G89.29 Other chronic pain; M11.262 Other chondrocalcinosis, left knee; E53.8 Deficiency of other specified B group vitamins; G56.01 Carpal tunnel syndrome, right upper limb; G56.02 Carpal tunnel syndrome, left upper limb; B96.29 Other Escherichia coli [E. coli] as the cause of diseases classified elsewhere

== ENCOUNTER 2017-11-02 13:30 | Inpatient (IN) | payer MEDICARE, OTHER ==
[~2017-11-02 13:30] MED LIST changes: -/WARF25TA; -DULO30CA PO; -GLIP5TAB8 PO; -GLUC500T; -KETO10TAB PO; -LEVO100T7; -LISINOPRIL/HCTZ; -MELOXICAN; -METF500T4; -MILKSUS; -MIRAPEX; -NORV5TAB; +NYSTATIN 100,000 UNITS/GM TOPICAL PWD 15 GM TOP; -PERC5TAB8; -PRAM0.5T4 PO; -PRIN20TA3; -SITA50TAB PO; -SYNT100T; -TOVI4TAB PO; -mirapex
[2017-11-02] MEDS: GABAPENTIN 100 MG CAP PO ×2 (16:04→22:20)
[2017-11-02 16:44] LABS: BEDSIDE GLUCOSE 111 MG/DL (83-110)
[2017-11-02] MEDS: **NOTE PATIENT COMMENT** MISC XX (21:00)
[2017-11-02] MEDS: LACTOBACILLUS ACIDOPHILUS CAP (BACID) PO (22:19)
[2017-11-02] MEDS: PRAMIPEXOLE 1 MG TAB PO (22:20)
[2017-11-02] MEDS: FIDAXOMICIN 200 MG TAB (DIFICID) PO (22:20)
[2017-11-03] MEDS: LEVOTHYROXINE 100MCG TABLET (0.1MG) PO (05:50)
[2017-11-03 06:29] LABS: BASO # 0.1 10^3/uL (0.0-0.2); EOS # 0.1 10^3/uL (0.0-0.50); HEMATOCRIT 38.2 % (36.0-47.0); HEMOGLOBIN 13.1 g/dl (12.0-16.0); IMMATURE GRANULOCYTE % 0.4 % (0-3.0); LYMPH % 20.5 % (24.0-44.0); MEAN CORPUSCULAR HEMOGLOBIN 32.6 pg (27.0-33.0); MEAN CORPUSCULAR HGB CONC 34.3 g/dl (32.0-36.5); MONO # 0.4 10^3/uL (0.0-0.8); MONO % 8.9 % (0.0-5.0); NEUTROPHILS # 3.3 10^3/uL (1.8-7.7); NEUTROPHILS % 67.2 % (36.0-66.0); PLATELET COUNT, AUTOMATED 148 10^3/uL (150-450); RED BLOOD COUNT 4.02 10^6/uL (4.00-5.40); RED CELL DISTRIBUTION WIDTH 13.3 % (11.5-14.5); WHITE BLOOD COUNT 4.9 10^3/uL (4.0-10.0)
[2017-11-03 06:51] LABS: ALBUMIN 2.9 GM/DL (3.2-5.2); ALBUMIN/GLOBULIN RATIO 0.83 (1.00-1.93); ALKALINE PHOSPHATASE 146 U/L (45-117); ALT/SGPT 23 U/L (12-78); ANION GAP 6 MEQ/L (8-16); AST/SGOT 28 U/L (7-37); BILIRUBIN,TOTAL 0.7 MG/DL (0.2-1.0); BLOOD UREA NITROGEN 17 MG/DL (7-18); CALCIUM LEVEL 8.4 MG/DL (8.8-10.2); CARBON DIOXIDE LEVEL 26 MEQ/L (21-32); CHLORIDE LEVEL 108 MEQ/L (98-107); CREATININE FOR GFR 0.61 MG/DL (0.55-1.30); GLOMERULAR FILTRATION RATE > 60.0 (>32); GLUCOSE, FASTING 144 MG/DL (70-100); MAGNESIUM LEVEL 1.9 MG/DL (1.8-2.4); POTASSIUM SERUM 3.8 MEQ/L (3.5-5.1); SODIUM LEVEL 140 MEQ/L (136-145); TOTAL PROTEIN 6.4 GM/DL (6.4-8.2)
[2017-11-03] MEDS: LACTOBACILLUS ACIDOPHILUS CAP (BACID) PO ×2 (07:44→21:30)
[2017-11-03] MEDS: CitaloPRAM (CeleXA) 10 MG TABLET PO (07:44)
[2017-11-03] MEDS: FIDAXOMICIN 200 MG TAB (DIFICID) PO ×2 (07:44→21:31)
[2017-11-03] MEDS: CYANOCOBALAMIN 500 MCG TAB PO (07:44)
[2017-11-03] MEDS: glipiZIDE *XL* 2.5MG TABLET PO (07:45)
[2017-11-03] MEDS: SITagliptin 50 MG TAB (JANUVIA) PO (07:45)
[2017-11-03] MEDS: GABAPENTIN 100 MG CAP PO ×3 (07:45→21:31)
[2017-11-03] MEDS: LOSARTAN 50 MG TAB PO (07:45)
[2017-11-03] MEDS: LIDOCAINE 5% (LIDODERM) PATCH TD (07:46)
[2017-11-03 17:06] LABS: BEDSIDE GLUCOSE 147 MG/DL (83-110)
[2017-11-03] MEDS: **NOTE PATIENT COMMENT** MISC XX (21:00)
[2017-11-03] MEDS: PRAMIPEXOLE 1 MG TAB PO (21:31)
[2017-11-04] MEDS: LEVOTHYROXINE 100MCG TABLET (0.1MG) PO (05:41)
[2017-11-04 06:02] LABS: BASO % 0.7 % (0.0-1.0); EOS # 0.1 10^3/uL (0.0-0.50); EOS % 1.4 % (0.0-3.0); HEMOGLOBIN 12.4 g/dl (12.0-16.0); IMMATURE GRANULOCYTE % 0.5 % (0-3.0); LYMPH % 24.2 % (24.0-44.0); MEAN CORPUSCULAR HEMOGLOBIN 32.2 pg (27.0-33.0); MEAN CORPUSCULAR HGB CONC 34.4 g/dl (32.0-36.5); MEAN CORPUSCULAR VOLUME 93.5 fl (80.0-96.0); MONO # 0.4 10^3/uL (0.0-0.8); MONO % 9.7 % (0.0-5.0); NEUTROPHILS # 2.7 10^3/uL (1.8-7.7); NEUTROPHILS % 63.5 % (36.0-66.0); PLATELET COUNT, AUTOMATED 145 10^3/uL (150-450); RED BLOOD COUNT 3.85 10^6/uL (4.00-5.40); RED CELL DISTRIBUTION WIDTH 13.2 % (11.5-14.5); WHITE BLOOD COUNT 4.2 10^3/uL (4.0-10.0)
[2017-11-04 06:32] LABS: ALBUMIN 2.8 GM/DL (3.2-5.2); ALBUMIN/GLOBULIN RATIO 0.85 (1.00-1.93); ALKALINE PHOSPHATASE 173 U/L (45-117); ALT/SGPT 28 U/L (12-78); ANION GAP 8 MEQ/L (8-16); AST/SGOT 45 U/L (7-37); BILIRUBIN,TOTAL 0.7 MG/DL (0.2-1.0); BLOOD UREA NITROGEN 15 MG/DL (7-18); CALCIUM LEVEL 8.2 MG/DL (8.8-10.2); CARBON DIOXIDE LEVEL 25 MEQ/L (21-32); CHLORIDE LEVEL 107 MEQ/L (98-107); CREATININE FOR GFR 0.61 MG/DL (0.55-1.30); GLOMERULAR FILTRATION RATE > 60.0 (>32); GLUCOSE, FASTING 158 MG/DL (70-100); MAGNESIUM LEVEL 1.8 MG/DL (1.8-2.4); POTASSIUM SERUM 3.4 MEQ/L (3.5-5.1); SODIUM LEVEL 140 MEQ/L (136-145); TOTAL PROTEIN 6.1 GM/DL (6.4-8.2)
[2017-11-04] MEDS: glipiZIDE *XL* 2.5MG TABLET PO (07:54)
[2017-11-04] MEDS: LOSARTAN 50 MG TAB PO (07:54)
[2017-11-04] MEDS: LACTOBACILLUS ACIDOPHILUS CAP (BACID) PO ×2 (07:54→20:10)
[2017-11-04] MEDS: LIDOCAINE 5% (LIDODERM) PATCH TD (07:54)
[2017-11-04] MEDS: FIDAXOMICIN 200 MG TAB (DIFICID) PO ×2 (07:54→20:10)
[2017-11-04] MEDS: SITagliptin 50 MG TAB (JANUVIA) PO (07:55)
[2017-11-04] MEDS: CitaloPRAM (CeleXA) 10 MG TABLET PO (07:55)
[2017-11-04] MEDS: CYANOCOBALAMIN 500 MCG TAB PO (07:55)
[2017-11-04] MEDS: GABAPENTIN 100 MG CAP PO ×3 (07:55→20:10)
[2017-11-04] MEDS: POTASSIUM CHLORIDE 10 MEQ SR TABLET PO (10:44)
[2017-11-04 16:55] LABS: BEDSIDE GLUCOSE 179 MG/DL (83-110)
[2017-11-04] MEDS: PRAMIPEXOLE 1 MG TAB PO (20:10)
[2017-11-04] MEDS: **NOTE PATIENT COMMENT** MISC XX (20:12)
[2017-11-05 05:57] LABS: HEMATOCRIT 35.4 % (36.0-47.0); MEAN CORPUSCULAR HEMOGLOBIN 32.4 pg (27.0-33.0); MEAN CORPUSCULAR HGB CONC 33.9 g/dl (32.0-36.5); MEAN CORPUSCULAR VOLUME 95.7 fl (80.0-96.0); PLATELET COUNT, AUTOMATED 131 10^3/uL (150-450); RED CELL DISTRIBUTION WIDTH 13.1 % (11.5-14.5); WHITE BLOOD COUNT 4.2 10^3/uL (4.0-10.0)
[2017-11-05 06:21] LABS: ADD MANUAL DIFFER YES; DIFF SLIDE NUMBER 42; POSITIVE MORPH POS FLAG
[2017-11-05 06:22] LABS: ALBUMIN 2.7 GM/DL (3.2-5.2); ALBUMIN/GLOBULIN RATIO 0.84 (1.00-1.93); ALKALINE PHOSPHATASE 190 U/L (45-117); ALT/SGPT 31 U/L (12-78); ANION GAP 7 MEQ/L (8-16); AST/SGOT 46 U/L (7-37); BILIRUBIN,TOTAL 0.5 MG/DL (0.2-1.0); BLOOD UREA NITROGEN 14 MG/DL (7-18); CALCIUM LEVEL 8.4 MG/DL (8.8-10.2); CARBON DIOXIDE LEVEL 25 MEQ/L (21-32); CHLORIDE LEVEL 109 MEQ/L (98-107); CREATININE FOR GFR 0.61 MG/DL (0.55-1.30); GLOMERULAR FILTRATION RATE > 60.0 (>32); GLUCOSE, FASTING 151 MG/DL (70-100); MAGNESIUM LEVEL 2.1 MG/DL (1.8-2.4); POTASSIUM SERUM 3.8 MEQ/L (3.5-5.1); SODIUM LEVEL 141 MEQ/L (136-145); TOTAL PROTEIN 5.9 GM/DL (6.4-8.2)
[2017-11-05] MEDS: LEVOTHYROXINE 100MCG TABLET (0.1MG) PO (06:48)
[2017-11-05 07:23] LABS: ATYPICAL LYMPH 3 % (0-5); BANDS 1 % (< 11); EOSINOPHILS 5 % (0-5); LYMPHOCYTES 29 % (16-52); MONOCYTES 7 % (0-8); NEUTROPHILS 55 % (35-75)
[2017-11-05 07:24] LABS: PLATELET ESTIMATE NORMAL (NORMAL)
[2017-11-05] MEDS: glipiZIDE *XL* 2.5MG TABLET PO (08:10)
[2017-11-05] MEDS: CitaloPRAM (CeleXA) 10 MG TABLET PO (08:11)
[2017-11-05] MEDS: FIDAXOMICIN 200 MG TAB (DIFICID) PO ×2 (08:11→22:32)
[2017-11-05] MEDS: SITagliptin 50 MG TAB (JANUVIA) PO (08:11)
[2017-11-05] MEDS: CYANOCOBALAMIN 500 MCG TAB PO (08:11)
[2017-11-05] MEDS: GABAPENTIN 100 MG CAP PO ×3 (08:11→22:32)
[2017-11-05] MEDS: LACTOBACILLUS ACIDOPHILUS CAP (BACID) PO ×2 (08:11→22:32)
[2017-11-05] MEDS: LIDOCAINE 5% (LIDODERM) PATCH TD (08:12)
[2017-11-05] MEDS: LOSARTAN 50 MG TAB PO (08:14)
[2017-11-05] MEDS: IBUPROFEN 600 MG TAB PO (17:11)
[2017-11-05 21:01] LABS: BEDSIDE GLUCOSE 216 MG/DL (83-110)
[2017-11-05] MEDS: PRAMIPEXOLE 1 MG TAB PO (22:32)
[2017-11-05] MEDS: ACETAMINOPHEN TAB 650MG DOSE (2X325MG) PO (22:33)
[2017-11-05] MEDS: **NOTE PATIENT COMMENT** MISC XX (22:40)
[2017-11-06] MEDS: LEVOTHYROXINE 100MCG TABLET (0.1MG) PO (05:33)
[2017-11-06] MEDS: ACETAMINOPHEN TAB 650MG DOSE (2X325MG) PO (05:34)
[2017-11-06 05:54] LABS: BASO % 0.9 % (0.0-1.0); EOS # 0.1 10^3/uL (0.0-0.50); EOS % 2.8 % (0.0-3.0); HEMATOCRIT 35.3 % (36.0-47.0); HEMOGLOBIN 12.1 g/dl (12.0-16.0); IMMATURE GRANULOCYTE % 0.5 % (0-3.0); LYMPH # 1.4 10^3/uL (1.5-4.5); LYMPH % 32.9 % (24.0-44.0); MEAN CORPUSCULAR HEMOGLOBIN 32.3 pg (27.0-33.0); MEAN CORPUSCULAR HGB CONC 34.3 g/dl (32.0-36.5); MEAN CORPUSCULAR VOLUME 94.1 fl (80.0-96.0); MONO # 0.5 10^3/uL (0.0-0.8); MONO % 11.4 % (0.0-5.0); NEUTROPHILS # 2.2 10^3/uL (1.8-7.7); NEUTROPHILS % 51.5 % (36.0-66.0); PLATELET COUNT, AUTOMATED 147 10^3/uL (150-450); RED BLOOD COUNT 3.75 10^6/uL (4.00-5.40); RED CELL DISTRIBUTION WIDTH 13.2 % (11.5-14.5); WHITE BLOOD COUNT 4.2 10^3/uL (4.0-10.0)
[2017-11-06 06:05] LABS: POSITIVE MORPH POS FLAG
[2017-11-06 06:18] LABS: ALBUMIN 2.7 GM/DL (3.2-5.2); ALBUMIN/GLOBULIN RATIO 0.87 (1.00-1.93); ALKALINE PHOSPHATASE 178 U/L (45-117); ALT/SGPT 37 U/L (12-78); ANION GAP 6 MEQ/L (8-16); AST/SGOT 47 U/L (7-37); BILIRUBIN,TOTAL 0.6 MG/DL (0.2-1.0); BLOOD UREA NITROGEN 11 MG/DL (7-18); CALCIUM LEVEL 8.1 MG/DL (8.8-10.2); CARBON DIOXIDE LEVEL 28 MEQ/L (21-32); CHLORIDE LEVEL 108 MEQ/L (98-107); CREATININE FOR GFR 0.62 MG/DL (0.55-1.30); GLOMERULAR FILTRATION RATE > 60.0 (>32); GLUCOSE, FASTING 143 MG/DL (70-100); MAGNESIUM LEVEL 1.8 MG/DL (1.8-2.4); POTASSIUM SERUM 3.8 MEQ/L (3.5-5.1); SODIUM LEVEL 142 MEQ/L (136-145); TOTAL PROTEIN 5.8 GM/DL (6.4-8.2)
[2017-11-06] MEDS: CitaloPRAM (CeleXA) 10 MG TABLET PO (07:56)
[2017-11-06] MEDS: LOSARTAN 50 MG TAB PO (07:57)
[2017-11-06] MEDS: SITagliptin 50 MG TAB (JANUVIA) PO (07:57)
[2017-11-06] MEDS: GABAPENTIN 100 MG CAP PO ×3 (07:57→21:17)
[2017-11-06] MEDS: glipiZIDE *XL* 2.5MG TABLET PO (07:57)
[2017-11-06] MEDS: CYANOCOBALAMIN 500 MCG TAB PO (07:57)
[2017-11-06] MEDS: LIDOCAINE 5% (LIDODERM) PATCH TD (07:58)
[2017-11-06] MEDS: FIDAXOMICIN 200 MG TAB (DIFICID) PO ×2 (07:58→21:16)
[2017-11-06] MEDS: LACTOBACILLUS ACIDOPHILUS CAP (BACID) PO ×2 (07:58→21:17)
[2017-11-06] MEDS: IBUPROFEN 400 MG TAB PO (16:47)
[2017-11-06 17:11] LABS: BEDSIDE GLUCOSE 176 MG/DL (83-110)
[2017-11-06] MEDS: **NOTE PATIENT COMMENT** MISC XX (21:00)
[2017-11-06] MEDS: PRAMIPEXOLE 1 MG TAB PO (21:16)
[2017-11-07 05:53] LABS: HEMATOCRIT 36.7 % (36.0-47.0); HEMOGLOBIN 12.5 g/dl (12.0-16.0); MEAN CORPUSCULAR HEMOGLOBIN 32.5 pg (27.0-33.0); MEAN CORPUSCULAR HGB CONC 34.1 g/dl (32.0-36.5); MEAN CORPUSCULAR VOLUME 95.3 fl (80.0-96.0); PLATELET COUNT, AUTOMATED 142 10^3/uL (150-450); RED BLOOD COUNT 3.85 10^6/uL (4.00-5.40); RED CELL DISTRIBUTION WIDTH 13.1 % (11.5-14.5); WHITE BLOOD COUNT 4.6 10^3/uL (4.0-10.0)
[2017-11-07] MEDS: LEVOTHYROXINE 100MCG TABLET (0.1MG) PO (05:56)
[2017-11-07 05:57] LABS: ADD MANUAL DIFFER YES; DIFF SLIDE NUMBER 23; POSITIVE MORPH POS FLAG
[2017-11-07 06:13] LABS: ALBUMIN 2.6 GM/DL (3.2-5.2); ALBUMIN/GLOBULIN RATIO 0.76 (1.00-1.93); ALKALINE PHOSPHATASE 211 U/L (45-117); ALT/SGPT 37 U/L (12-78); ANION GAP 8 MEQ/L (8-16); AST/SGOT 49 U/L (7-37); BILIRUBIN,TOTAL 0.5 MG/DL (0.2-1.0); BLOOD UREA NITROGEN 12 MG/DL (7-18); CALCIUM LEVEL 8.5 MG/DL (8.8-10.2); CARBON DIOXIDE LEVEL 26 MEQ/L (21-32); CHLORIDE LEVEL 107 MEQ/L (98-107); CREATININE FOR GFR 0.59 MG/DL (0.55-1.30); GLOMERULAR FILTRATION RATE > 60.0 (>32); GLUCOSE, FASTING 165 MG/DL (70-100); MAGNESIUM LEVEL 1.9 MG/DL (1.8-2.4); POTASSIUM SERUM 3.8 MEQ/L (3.5-5.1); SODIUM LEVEL 141 MEQ/L (136-145)
[2017-11-07 06:42] LABS: ATYPICAL LYMPH 4 % (0-5); BASOPHILS 1 % (0-4); EOSINOPHILS 2 % (0-5); LYMPHOCYTES 24 % (16-52); MONOCYTES 7 % (0-8); NEUTROPHILS 62 % (35-75)
[2017-11-07 06:43] LABS: ANISOCYTOSIS 1+; PLATELET ESTIMATE DECREASED (NORMAL)
[2017-11-07] MEDS: CitaloPRAM (CeleXA) 10 MG TABLET PO (09:34)
[2017-11-07] MEDS: LACTOBACILLUS ACIDOPHILUS CAP (BACID) PO ×2 (09:34→20:37)
[2017-11-07] MEDS: SITagliptin 50 MG TAB (JANUVIA) PO (09:35)
[2017-11-07] MEDS: FIDAXOMICIN 200 MG TAB (DIFICID) PO ×2 (09:35→20:37)
[2017-11-07] MEDS: glipiZIDE *XL* 2.5MG TABLET PO (09:35)
[2017-11-07] MEDS: LOSARTAN 50 MG TAB PO (09:36)
[2017-11-07] MEDS: GABAPENTIN 100 MG CAP PO ×3 (09:36→20:37)
[2017-11-07] MEDS: CYANOCOBALAMIN 500 MCG TAB PO (09:36)
[2017-11-07] MEDS: LIDOCAINE 5% (LIDODERM) PATCH TD (09:38)
[2017-11-07] MEDS: IBUPROFEN 400 MG TAB PO (10:13)
[2017-11-07 16:44] LABS: BEDSIDE GLUCOSE 186 MG/DL (83-110)
[2017-11-07] MEDS: PRAMIPEXOLE 1 MG TAB PO (20:37)
[2017-11-07] MEDS: **NOTE PATIENT COMMENT** MISC XX (20:37)
[2017-11-08 06:08] LABS: BASO % 0.9 % (0.0-1.0); EOS # 0.1 10^3/uL (0.0-0.50); EOS % 2.8 % (0.0-3.0); HEMATOCRIT 37.6 % (36.0-47.0); HEMOGLOBIN 12.7 g/dl (12.0-16.0); IMMATURE GRANULOCYTE % 0.7 % (0-3.0); LYMPH # 1.1 10^3/uL (1.5-4.5); LYMPH % 25.9 % (24.0-44.0); MEAN CORPUSCULAR HEMOGLOBIN 32.3 pg (27.0-33.0); MEAN CORPUSCULAR HGB CONC 33.8 g/dl (32.0-36.5); MEAN CORPUSCULAR VOLUME 95.7 fl (80.0-96.0); MONO # 0.4 10^3/uL (0.0-0.8); MONO % 9.3 % (0.0-5.0); NEUTROPHILS # 2.6 10^3/uL (1.8-7.7); NEUTROPHILS % 60.4 % (36.0-66.0); PLATELET COUNT, AUTOMATED 155 10^3/uL (150-450); RED BLOOD COUNT 3.93 10^6/uL (4.00-5.40); WHITE BLOOD COUNT 4.3 10^3/uL (4.0-10.0)
[2017-11-08] MEDS: LEVOTHYROXINE 100MCG TABLET (0.1MG) PO (06:21)
[2017-11-08 06:29] LABS: ALBUMIN 2.7 GM/DL (3.2-5.2); ALBUMIN/GLOBULIN RATIO 0.77 (1.00-1.93); ALKALINE PHOSPHATASE 218 U/L (45-117); ALT/SGPT 38 U/L (12-78); ANION GAP 7 MEQ/L (8-16); AST/SGOT 47 U/L (7-37); BILIRUBIN,TOTAL 0.5 MG/DL (0.2-1.0); BLOOD UREA NITROGEN 10 MG/DL (7-18); CALCIUM LEVEL 8.5 MG/DL (8.8-10.2); CARBON DIOXIDE LEVEL 27 MEQ/L (21-32); CHLORIDE LEVEL 107 MEQ/L (98-107); CREATININE FOR GFR 0.65 MG/DL (0.55-1.30); GLOMERULAR FILTRATION RATE > 60.0 (>32); GLUCOSE, FASTING 152 MG/DL (70-100); MAGNESIUM LEVEL 1.9 MG/DL (1.8-2.4); POTASSIUM SERUM 3.9 MEQ/L (3.5-5.1); SODIUM LEVEL 141 MEQ/L (136-145); TOTAL PROTEIN 6.2 GM/DL (6.4-8.2)
[2017-11-08 06:40] LABS: BEDSIDE GLUCOSE 151 MG/DL (83-110)
[2017-11-08] MEDS: CitaloPRAM (CeleXA) 10 MG TABLET PO (08:06)
[2017-11-08] MEDS: glipiZIDE *XL* 2.5MG TABLET PO (08:06)
[2017-11-08] MEDS: SITagliptin 50 MG TAB (JANUVIA) PO (08:06)
[2017-11-08] MEDS: FIDAXOMICIN 200 MG TAB (DIFICID) PO ×2 (08:06→21:39)
[2017-11-08] MEDS: LOSARTAN 50 MG TAB PO (08:06)
[2017-11-08] MEDS: CYANOCOBALAMIN 500 MCG TAB PO (08:06)
[2017-11-08] MEDS: LACTOBACILLUS ACIDOPHILUS CAP (BACID) PO ×2 (08:06→21:39)
[2017-11-08] MEDS: GABAPENTIN 100 MG CAP PO ×3 (08:06→21:39)
[2017-11-08] MEDS: LIDOCAINE 5% (LIDODERM) PATCH TD (08:07)
[2017-11-08] MEDS: IBUPROFEN 400 MG TAB PO (10:25)
[2017-11-08 19:52] LABS: BEDSIDE GLUCOSE 165 MG/DL (83-110)
[2017-11-08] MEDS: **NOTE PATIENT COMMENT** MISC XX (21:00)
[2017-11-08] MEDS: PRAMIPEXOLE 1 MG TAB PO (21:39)
[2017-11-09 05:55] LABS: BASO % 0.8 % (0.0-1.0); EOS # 0.1 10^3/uL (0.0-0.50); EOS % 2.5 % (0.0-3.0); HEMATOCRIT 37.9 % (36.0-47.0); HEMOGLOBIN 12.7 g/dl (12.0-16.0); IMMATURE GRANULOCYTE % 0.2 % (0-3.0); LYMPH # 1.1 10^3/uL (1.5-4.5); LYMPH % 21.9 % (24.0-44.0); MEAN CORPUSCULAR HEMOGLOBIN 31.8 pg (27.0-33.0); MEAN CORPUSCULAR HGB CONC 33.5 g/dl (32.0-36.5); MEAN CORPUSCULAR VOLUME 94.8 fl (80.0-96.0); MONO # 0.5 10^3/uL (0.0-0.8); MONO % 9.6 % (0.0-5.0); NEUTROPHILS # 3.4 10^3/uL (1.8-7.7); PLATELET COUNT, AUTOMATED 175 10^3/uL (150-450); WHITE BLOOD COUNT 5.2 10^3/uL (4.0-10.0)
[2017-11-09] MEDS: LEVOTHYROXINE 100MCG TABLET (0.1MG) PO (06:12)
[2017-11-09 06:13] LABS: ALBUMIN 2.7 GM/DL (3.2-5.2); ALBUMIN/GLOBULIN RATIO 0.77 (1.00-1.93); ALKALINE PHOSPHATASE 192 U/L (45-117); ALT/SGPT 33 U/L (12-78); ANION GAP 9 MEQ/L (8-16); AST/SGOT 34 U/L (7-37); BILIRUBIN,TOTAL 0.5 MG/DL (0.2-1.0); BLOOD UREA NITROGEN 11 MG/DL (7-18); CALCIUM LEVEL 8.8 MG/DL (8.8-10.2); CARBON DIOXIDE LEVEL 26 MEQ/L (21-32); CHLORIDE LEVEL 104 MEQ/L (98-107); CREATININE FOR GFR 0.69 MG/DL (0.55-1.30); GLOMERULAR FILTRATION RATE > 60.0 (>32); GLUCOSE, FASTING 173 MG/DL (70-100); SODIUM LEVEL 139 MEQ/L (136-145); TOTAL PROTEIN 6.2 GM/DL (6.4-8.2)
[2017-11-09] MEDS: glipiZIDE *XL* 2.5MG TABLET PO (07:42)
[2017-11-09] MEDS: LIDOCAINE 5% (LIDODERM) PATCH TD (08:33)
[2017-11-09] MEDS: FIDAXOMICIN 200 MG TAB (DIFICID) PO ×2 (08:34→20:05)
[2017-11-09] MEDS: GABAPENTIN 100 MG CAP PO ×3 (08:34→20:05)
[2017-11-09] MEDS: CYANOCOBALAMIN 500 MCG TAB PO (08:34)
[2017-11-09] MEDS: SITagliptin 50 MG TAB (JANUVIA) PO (08:34)
[2017-11-09] MEDS: LOSARTAN 50 MG TAB PO (08:34)
[2017-11-09] MEDS: CitaloPRAM (CeleXA) 10 MG TABLET PO (08:34)
[2017-11-09] MEDS: LACTOBACILLUS ACIDOPHILUS CAP (BACID) PO ×2 (08:34→20:05)
[2017-11-09] MEDS: IBUPROFEN 400 MG TAB PO ×2 (09:04→20:04)
[2017-11-09 13:02] LABS: BEDSIDE GLUCOSE 260 MG/DL (83-110)
[2017-11-09 17:22] LABS: BEDSIDE GLUCOSE 171 MG/DL (83-110)
[2017-11-09] MEDS: PRAMIPEXOLE 1 MG TAB PO (20:05)
[2017-11-09] MEDS: **NOTE PATIENT COMMENT** MISC XX (20:05)
[2017-11-10] MEDS: LEVOTHYROXINE 100MCG TABLET (0.1MG) PO (05:32)
[2017-11-10 08:03] LABS: BEDSIDE GLUCOSE 179 MG/DL (83-110)
[2017-11-10] MEDS: SITagliptin 50 MG TAB (JANUVIA) PO (08:37)
[2017-11-10] MEDS: CitaloPRAM (CeleXA) 10 MG TABLET PO (08:37)
[2017-11-10] MEDS: CYANOCOBALAMIN 500 MCG TAB PO (08:37)
[2017-11-10] MEDS: LOSARTAN 50 MG TAB PO (08:37)
[2017-11-10] MEDS: GABAPENTIN 100 MG CAP PO ×3 (08:38→20:36)
[2017-11-10] MEDS: glipiZIDE *XL* 2.5MG TABLET PO (08:38)
[2017-11-10] MEDS: IBUPROFEN 400 MG TAB PO ×2 (08:38→20:37)
[2017-11-10] MEDS: FIDAXOMICIN 200 MG TAB (DIFICID) PO ×2 (08:38→20:36)
[2017-11-10] MEDS: LACTOBACILLUS ACIDOPHILUS CAP (BACID) PO ×2 (08:38→20:36)
[2017-11-10] MEDS: LIDOCAINE 5% (LIDODERM) PATCH TD (08:39)
[2017-11-10 12:16] LABS: BEDSIDE GLUCOSE 264 MG/DL (83-110)
[2017-11-10 16:52] LABS: BEDSIDE GLUCOSE 271 MG/DL (83-110)
[2017-11-10] MEDS: PRAMIPEXOLE 1 MG TAB PO (20:36)
[2017-11-10] MEDS: **NOTE PATIENT COMMENT** MISC XX (20:37)
[2017-11-11] MEDS: LEVOTHYROXINE 100MCG TABLET (0.1MG) PO (06:20)
[2017-11-11 06:57] LABS: HEMATOCRIT 36.5 % (36.0-47.0); HEMOGLOBIN 12.2 g/dl (12.0-16.0); MEAN CORPUSCULAR HEMOGLOBIN 31.9 pg (27.0-33.0); MEAN CORPUSCULAR HGB CONC 33.4 g/dl (32.0-36.5); MEAN CORPUSCULAR VOLUME 95.3 fl (80.0-96.0); PLATELET COUNT, AUTOMATED 141 10^3/uL (150-450); RED BLOOD COUNT 3.83 10^6/uL (4.00-5.40); WHITE BLOOD COUNT 4.1 10^3/uL (4.0-10.0)
[2017-11-11 07:12] LABS: ANION GAP 7 MEQ/L (8-16); BLOOD UREA NITROGEN 19 MG/DL (7-18); CALCIUM LEVEL 8.7 MG/DL (8.8-10.2); CARBON DIOXIDE LEVEL 27 MEQ/L (21-32); CHLORIDE LEVEL 106 MEQ/L (98-107); CREATININE FOR GFR 0.67 MG/DL (0.55-1.30); GLOMERULAR FILTRATION RATE > 60.0 (>32); GLUCOSE, FASTING 161 MG/DL (70-100); MAGNESIUM LEVEL 2.1 MG/DL (1.8-2.4); POTASSIUM SERUM 4.2 MEQ/L (3.5-5.1); SODIUM LEVEL 140 MEQ/L (136-145)
[2017-11-11] MEDS: LIDOCAINE 5% (LIDODERM) PATCH TD (09:11)
[2017-11-11] MEDS: GABAPENTIN 100 MG CAP PO (09:11)
[2017-11-11] MEDS: CitaloPRAM (CeleXA) 10 MG TABLET PO (09:12)
[2017-11-11] MEDS: LACTOBACILLUS ACIDOPHILUS CAP (BACID) PO (09:12)
[2017-11-11] MEDS: CYANOCOBALAMIN 500 MCG TAB PO (09:12)
[2017-11-11] MEDS: FIDAXOMICIN 200 MG TAB (DIFICID) PO (09:12)
[2017-11-11] MEDS: glipiZIDE *XL* 2.5MG TABLET PO (09:13)
[2017-11-11] MEDS: SITagliptin 50 MG TAB (JANUVIA) PO (09:13)
[2017-11-11] MEDS: LOSARTAN 50 MG TAB PO (09:17)
== END 2017-11-11 14:23 | DRG 372 ==
LOC: M MSPAV 13:30
PROVIDERS: Internal Medicine
DX: A04.72 Enterocolitis due to Clostridium difficile, not specified as recurrent (principal); L97.929 Non-pressure chronic ulcer of unspecified part of left lower leg with unspecified severity; N39.0 Urinary tract infection, site not specified; D61.818 Other pancytopenia; Z91.5 Personal history of self-harm; S51.002A Unspecified open wound of left elbow, initial encounter; I87.2 Venous insufficiency (chronic) (peripheral); E86.0 Dehydration; F32.9 Major depressive disorder, single episode, unspecified; E11.9 Type 2 diabetes mellitus without complications; E03.9 Hypothyroidism, unspecified; G89.29 Other chronic pain; R26.89 Other abnormalities of gait and mobility; I12.9 Hypertensive chronic kidney disease with stage 1 through stage 4 chronic kidney disease, or unspecified chronic kidney disease; M19.90 Unspecified osteoarthritis, unspecified site; Z79.899 Other long term (current) drug therapy; B96.29 Other Escherichia coli [E. coli] as the cause of diseases classified elsewhere; X78.8XXA Intentional self-harm by other sharp object, initial encounter; Y92.009 Unspecified place in unspecified non-institutional (private) residence as the place of occurrence of the external cause

== ENCOUNTER → 2017-11-19 | Outpatient (REF) ==
[2017-11-19 09:40] LABS: TOTAL 25(OH) VITAMIN D 25.7 NG/ML (30.0-100.0)
== END ==
LOC: SKLAB7 07:00
DX: E11.9 Type 2 diabetes mellitus without complications (principal); M19.90 Unspecified osteoarthritis, unspecified site

== ENCOUNTER → 2018-01-04 | Outpatient (REF) | payer MEDICARE, OTHER | LOC: SKLAB7 22:32 | DX: R35.0 Frequency of micturition (principal) | CPT/HCPCS: 87086 ==

== ENCOUNTER → 2018-01-05 | Outpatient (REF) | payer MEDICARE, OTHER ==
[2018-01-05 06:58] LABS: HEMATOCRIT 40.3 % (36.0-47.0); HEMOGLOBIN 13.8 g/dl (12.0-15.5); MEAN CORPUSCULAR HEMOGLOBIN 31.8 pg (27.0-33.0); MEAN CORPUSCULAR HGB CONC 34.2 g/dl (32.0-36.5); MEAN CORPUSCULAR VOLUME 92.9 fl (80.0-96.0); PLATELET COUNT, AUTOMATED 101 10^3/uL (150-450); RED BLOOD COUNT 4.34 10^6/uL (4.00-5.40); RED CELL DISTRIBUTION WIDTH 14.2 % (11.5-14.5); WHITE BLOOD COUNT 4.8 10^3/uL (4.0-10.0)
[2018-01-05 07:17] LABS: ESTIMATED AVERAGE GLUCOSE 255 MG/DL (60-110); HEMOGLOBIN A1c 10.5 %
[2018-01-05 07:21] LABS: ANION GAP 5 MEQ/L (8-16); BLOOD UREA NITROGEN 19 MG/DL (7-18); CARBON DIOXIDE LEVEL 28 MEQ/L (21-32); CHLORIDE LEVEL 105 MEQ/L (98-107); CREATININE FOR GFR 0.83 MG/DL (0.55-1.30); GLOMERULAR FILTRATION RATE > 60.0 (>32); GLUCOSE, FASTING 266 MG/DL (70-100); SODIUM LEVEL 138 MEQ/L (136-145)
== END ==
LOC: SKLAB7 07:00
DX: E11.9 Type 2 diabetes mellitus without complications (principal)
CPT/HCPCS: 83036

== ENCOUNTER → 2018-01-10 | Outpatient (REF) | payer MEDICARE ==
[2018-01-10 15:29] LABS: APPEARANCE, URINE TURBID (CLEAR); BACTERIA, URINE AUTO 3+ (NEGATIVE); BILIRUBIN, URINE AUTO NEGATIVE (NEGATIVE); BLOOD, URINE BLOOD 1+ (NEGATIVE); COLOR, URINE YELLOW (YELLOW); GLUCOSE, URINE (UA) AUTO 3+ mg/dL (NEGATIVE); KETONE, URINE AUTO NEGATIVE (NEGATIVE); LEUKOCYTE ESTERASE, URINE AUTO 3+ (NEGATIVE); NITRITE, URINE AUTO POSITIVE (NEGATIVE); PROTEIN, URINE AUTO NEGATIVE (NEGATIVE); RBC, URINE AUTO 22 /HPF (0-3); SPECIFIC GRAVITY URINE AUTO 1.028 (1.002-1.035); SQUAMOUS EPITHELIAL CELL UR AU 0 /HPF (0-6); UROBILINOGEN, URINE AUTO 0.2 mg/dL (0.0-2.0); WBC, URINE AUTO TNTC /HPF (0-3)
== END ==
LOC: M LAB REF 15:01
DX: R50.9 Fever, unspecified (principal); R39.89 Other symptoms and signs involving the genitourinary system
CPT/HCPCS: 81001

== ENCOUNTER → 2018-01-15 | Outpatient (REF) | payer MEDICARE ==
[2018-01-15 13:06] LABS: HEMATOCRIT 44.6 % (36.0-47.0); HEMOGLOBIN 14.9 g/dl (12.0-15.5); MEAN CORPUSCULAR HEMOGLOBIN 31.8 pg (27.0-33.0); MEAN CORPUSCULAR HGB CONC 33.4 g/dl (32.0-36.5); MEAN CORPUSCULAR VOLUME 95.1 fl (80.0-96.0); PLATELET COUNT, AUTOMATED 192 10^3/uL (150-450); RED BLOOD COUNT 4.69 10^6/uL (4.00-5.40); RED CELL DISTRIBUTION WIDTH 14.6 % (11.5-14.5); WHITE BLOOD COUNT 5.8 10^3/uL (4.0-10.0)
[2018-01-15 13:25] LABS: ANION GAP 8 MEQ/L (8-16); BLOOD UREA NITROGEN 18 MG/DL (7-18); CALCIUM LEVEL 9.6 MG/DL (8.8-10.2); CARBON DIOXIDE LEVEL 28 MEQ/L (21-32); CHLORIDE LEVEL 102 MEQ/L (98-107); CREATININE FOR GFR 0.86 MG/DL (0.55-1.30); GLOMERULAR FILTRATION RATE > 60.0 (>32); GLUCOSE, FASTING 242 MG/DL (70-100); POTASSIUM SERUM 4.6 MEQ/L (3.5-5.1); SODIUM LEVEL 138 MEQ/L (136-145)
== END ==
LOC: SKLAB7 11:38
DX: R50.9 Fever, unspecified (principal); R05 Cough
CPT/HCPCS: 71046

== ENCOUNTER → 2018-04-15 | Outpatient (REF) | payer MEDICARE ==
[2018-04-15 09:32] LABS: ESTIMATED AVERAGE GLUCOSE 163 MG/DL (60-110); HEMOGLOBIN A1c 7.3 %
== END ==
LOC: SKLAB7 08:00
DX: E11.9 Type 2 diabetes mellitus without complications (principal)
CPT/HCPCS: 83036

== ENCOUNTER → 2018-05-20 | Outpatient (REF) | payer MEDICARE ==
[2018-05-20 08:36] LABS: HEMATOCRIT 41.7 % (36.0-47.0); HEMOGLOBIN 14.2 g/dl (12.0-15.5); MEAN CORPUSCULAR HEMOGLOBIN 33.6 pg (27.0-33.0); MEAN CORPUSCULAR HGB CONC 34.1 g/dl (32.0-36.5); MEAN CORPUSCULAR VOLUME 98.8 fl (80.0-96.0); RED BLOOD COUNT 4.22 10^6/uL (4.00-5.40); RED CELL DISTRIBUTION WIDTH 14.1 % (11.5-14.5); WHITE BLOOD COUNT 3.8 10^3/uL (4.0-10.0)
[2018-05-20 09:21] LABS: ALBUMIN/GLOBULIN RATIO 0.88 (1.00-1.93); ALKALINE PHOSPHATASE 101 U/L (45-117); ALT/SGPT 31 U/L (12-78); ANION GAP 10 MEQ/L (8-16); AST/SGOT 32 U/L (7-37); BILIRUBIN,TOTAL 0.6 MG/DL (0.2-1.0); BLOOD UREA NITROGEN 20 MG/DL (7-18); CALCIUM LEVEL 8.8 MG/DL (8.8-10.2); CARBON DIOXIDE LEVEL 25 MEQ/L (21-32); CHLORIDE LEVEL 105 MEQ/L (98-107); CREATININE FOR GFR 0.87 MG/DL (0.55-1.30); GLOMERULAR FILTRATION RATE > 60.0 (>32); GLUCOSE, FASTING 212 MG/DL (70-100); POTASSIUM SERUM 4.2 MEQ/L (3.5-5.1); SODIUM LEVEL 140 MEQ/L (136-145); THYROID STIMULATING HORMONE 0.553 uIU/ML (0.358-3.740); TOTAL PROTEIN 6.4 GM/DL (6.4-8.2)
[2018-05-20 09:39] LABS: PLATELET COUNT, AUTOMATED 89 10^3/uL (150-450)
[2018-05-20 09:40] LABS: IMMATURE PLATELET FRACTION % 3.3 % (0.0-9.6); PLATELET F 2.8
[2018-05-20 16:25] LABS: ESTIMATED AVERAGE GLUCOSE 157 MG/DL (60-110); HEMOGLOBIN A1c 7.1 %
== END ==
LOC: SKLAB7 12:49
DX: E03.9 Hypothyroidism, unspecified (principal); E11.9 Type 2 diabetes mellitus without complications; I10 Essential (primary) hypertension; D64.9 Anemia, unspecified
CPT/HCPCS: 84443

== ENCOUNTER → 2018-07-15 | Outpatient (REF) | payer MEDICARE ==
[2018-07-15 12:53] LABS: ESTIMATED AVERAGE GLUCOSE 154 MG/DL (60-110)
== END ==
LOC: SKLAB7 14:12
DX: E11.9 Type 2 diabetes mellitus without complications (principal)
CPT/HCPCS: 83036

== ENCOUNTER → 2018-10-08 | Outpatient (REF) | payer MEDICARE ==
[~2018-10-08] MED LIST changes: +/WARF25TA; +AMLO2.5T3 PO; +AMLO5TAB6 PO; +B-12500T2 PO; +BACITAB PO; +BACT800T5 PO; +CELE10TA PO; +CEPH500C PO; +DIFI200T PO; +DULO1CAP2 PO; +DULO30CA PO; +GABA-1171 PO; +GLIP-162 PO; +GLIP2.5T6 PO; +GLIP5TAB20 PO; +GLIP5TAB8 PO; +GLUC500T; +HYDR-3716 PO; +HYDR-3719 PO; +IBUP1TAB7 PO; +IBUP40TA PO; +IBUP80TA PO; +KETO10TAB PO; +LEVO100T5 PO; +LEVO100T54 PO; +LEVO100T7; +LIDO5TD TD; +LISINOPRIL/HCTZ; +LOSA50TA88 PO; +MELOXICAN; +METF500T13 PO; +METF500T4; +MILKSUS; +MIRA0.254 PO; +MIRAPEX; +NAPR-885 PO; +NORV5TAB; +NYAM10003 TOP; +NYST1POW9 TOP; -NYSTATIN 100,000 UNITS/GM TOPICAL PWD 15 GM TOP; +OSTETAB3 PO; +PERC5TAB8; +PRAM0.5T7 PO; +PRIN20TA3; +RISATAB3 PO; +SENN1TAB2 PO; +SITA50TAB PO; +SULF1TAB72 PO; +SYNT100T; +TOVI4TAB PO; +TOVI8TAB PO; +VITA100066 PO; +VITA500T53 PO; +mirapex
[2018-10-08 14:43] LABS: CALCIUM LEVEL 8.8 MG/DL (8.8-10.2); CREATININE FOR GFR 1.01 MG/DL (0.55-1.30); GLOMERULAR FILTRATION RATE 55.7 (>32); POTASSIUM SERUM 4.3 MEQ/L (3.5-5.1); THYROID STIMULATING HORMONE 0.666 uIU/ML (0.358-3.740)
--- NOTE | 2018-10-08 15:03 | REP ---
CHEST, PORTABLE: AP portable view of the chest is performed and compared to prior study of 01/15/2018. I see no evidence of acute infiltrate or pulmonary edema. The heart is not significantly enlarged. Patient is rotated toward the left. Mediastinal silhouette is grossly unremarkable. IMPRESSION: No evidence of acute infiltrate or pulmonary edema. Electronically Signed by Fabian Rocha MD 10/08/2018 07:40 P
== END ==
LOC: SKLAB7 13:01
PROVIDERS: ATTEND Internal Medicine
DX: R60.9 Edema, unspecified (principal)

== ENCOUNTER → 2018-10-15 | Outpatient (REF) | payer MEDICARE ==
[2018-10-15 07:27] LABS: CALCIUM LEVEL 8.5 MG/DL (8.8-10.2); CREATININE FOR GFR 1.05 MG/DL (0.55-1.30); GLOMERULAR FILTRATION RATE 53.3 (>32)
[2018-10-15 08:42] LABS: HEMOGLOBIN A1c 7.6 %
== END ==
LOC: SKLAB7 07:00
PROVIDERS: ATTEND Internal Medicine
DX: E11.9 Type 2 diabetes mellitus without complications (principal); Z79.899 Other long term (current) drug therapy

== ENCOUNTER → 2018-10-18 | Outpatient (REF) | payer MEDICARE ==
[2018-10-18 09:22] LABS: CALCIUM LEVEL 9.1 MG/DL (8.8-10.2); CREATININE FOR GFR 1.06 MG/DL (0.55-1.30); GLOMERULAR FILTRATION RATE 52.7 (>32); POTASSIUM SERUM 4.1 MEQ/L (3.5-5.1)
== END ==
LOC: SKLAB7 10-18 07:00
PROVIDERS: ATTEND Internal Medicine
DX: R60.9 Edema, unspecified (principal)

== ENCOUNTER → 2018-10-20 | Outpatient (CLI) | payer MEDICARE ==
--- NOTE | 2018-10-20 13:35 | REP ---
BILATERAL LOWER EXTREMITY DOPPLER VENOUS ULTRASOUND: 10/20/2018 Comparison: Left leg ultrasound 10/07/2017. Technique: The deep venous system of the right and left lower extremity are evaluated with becker scale imaging, compression ultrasound, color imaging and duplex Doppler interrogation. Examination from the groin through the popliteal fossa into the proximal calf. RIGHT LOWER EXTREMITY DOPPLER VENOUS ULTRASOUND: Findings: Standard duplex techniques utilized. The deep venous system on the right side shows occlusion and noncompressibility of the common femoral vein into the greater saphenous vein. The proximal right femoral vein in the thigh is partially occluded blood flow in its mid to distal portion, and the popliteal vein. There was no thrombus with full compressibility, respiratory variation and augmented flow. Impression: 1. Evidence of acute DVT in the right common femoral vein into the proximal femoral vein of the thigh and proximal greater saphenous vein. No other thrombus. LEFT LOWER EXTREMITY DOPPLER VENOUS ULTRASOUND: Technique: The deep venous system of the left lower extremity is evaluated with becker scale imaging, compression ultrasound, color imaging and duplex Doppler interrogation. Examination from the groin through the popliteal fossa into the proximal calf. Findings: There is full compressibility from the common femoral vein in the inguinal region through the popliteal vein. Color imaging confirms patency throughout the course of the deep venous system. There is respiratory variation and augmented flow at all levels. Impression: 1. No Doppler venous ultrasound evidence of DVT in the left lower extremity. Electronically Signed by Jose D Sena MD 10/20/2018 01:26 P
== END ==
LOC: M RAD 12:01
PROVIDERS: ATTEND Nurse Practitioner Family
DX: I82.411 Acute embolism and thrombosis of right femoral vein (principal)

== ENCOUNTER → 2018-10-21 | Outpatient (REF) | payer MEDICARE ==
[2018-10-21 09:28] LABS: HEMATOCRIT 43.7 % (36.0-47.0); HEMOGLOBIN 14.5 g/dl (12.0-15.5); MEAN CORPUSCULAR HEMOGLOBIN 32.9 pg (27.0-33.0); MEAN CORPUSCULAR HGB CONC 33.2 g/dl (32.0-36.5); MEAN CORPUSCULAR VOLUME 99.1 fl (80.0-96.0); RED BLOOD COUNT 4.41 10^6/uL (4.00-5.40); WHITE BLOOD COUNT 3.8 10^3/uL (4.0-10.0)
[2018-10-21 09:38] LABS: PLATELET COUNT, AUTOMATED 91 10^3/uL (150-450)
== END ==
LOC: SKLAB7 10:25
PROVIDERS: ATTEND Internal Medicine
DX: Z79.01 Long term (current) use of anticoagulants (principal)

== ENCOUNTER → 2018-10-28 | Outpatient (REF) | payer MEDICARE ==
[2018-10-28 08:20] LABS: HEMATOCRIT 41.3 % (36.0-47.0); HEMOGLOBIN 14.1 g/dl (12.0-15.5); MEAN CORPUSCULAR HEMOGLOBIN 33.3 pg (27.0-33.0); MEAN CORPUSCULAR HGB CONC 34.1 g/dl (32.0-36.5); MEAN CORPUSCULAR VOLUME 97.6 fl (80.0-96.0); RED BLOOD COUNT 4.23 10^6/uL (4.00-5.40); WHITE BLOOD COUNT 3.6 10^3/uL (4.0-10.0)
[2018-10-28 08:22] LABS: PLATELET COUNT, AUTOMATED 82 10^3/uL (150-450)
== END ==
LOC: SKLAB7 07:00
PROVIDERS: ATTEND Internal Medicine
DX: Z79.01 Long term (current) use of anticoagulants (principal)

== ENCOUNTER → 2018-11-04 | Outpatient (REF) | payer MEDICARE ==
[2018-11-04 10:21] LABS: HEMATOCRIT 40.5 % (36.0-47.0); HEMOGLOBIN 13.7 g/dl (12.0-15.5); MEAN CORPUSCULAR HEMOGLOBIN 33.5 pg (27.0-33.0); MEAN CORPUSCULAR HGB CONC 33.8 g/dl (32.0-36.5); RED BLOOD COUNT 4.09 10^6/uL (4.00-5.40); WHITE BLOOD COUNT 3.6 10^3/uL (4.0-10.0)
[2018-11-04 10:30] LABS: PLATELET COUNT, AUTOMATED 89 10^3/uL (150-450)
== END ==
LOC: SKLAB7 07:00
PROVIDERS: ATTEND Internal Medicine
DX: Z79.01 Long term (current) use of anticoagulants (principal)

== ENCOUNTER → 2018-11-05 | Outpatient (REF) | payer MEDICARE ==
[2018-11-05 12:07] LABS: HEMATOCRIT 43.8 % (36.0-47.0); HEMOGLOBIN 15.3 g/dl (12.0-15.5); MEAN CORPUSCULAR HEMOGLOBIN 33.8 pg (27.0-33.0); MEAN CORPUSCULAR HGB CONC 34.9 g/dl (32.0-36.5); MEAN CORPUSCULAR VOLUME 96.9 fl (80.0-96.0); PLATELET COUNT, AUTOMATED 113 10^3/uL (150-450); RED BLOOD COUNT 4.52 10^6/uL (4.00-5.40); WHITE BLOOD COUNT 5.1 10^3/uL (4.0-10.0)
[2018-11-05 12:53] LABS: C REACTIVE PROTEIN QUANTITATIV 1.37 MG/DL (0.00-0.30); CALCIUM LEVEL 8.9 MG/DL (8.8-10.2); CREATININE FOR GFR 1.14 MG/DL (0.55-1.30); GLOMERULAR FILTRATION RATE 48.3 (>32); POTASSIUM SERUM 4.1 MEQ/L (3.5-5.1)
== END ==
LOC: SKLAB7 11:07
PROVIDERS: ATTEND Internal Medicine
DX: M79.604 Pain in right leg (principal)

== ENCOUNTER → 2018-11-11 | Outpatient (REF) | payer MEDICARE ==
[2018-11-11 08:18] LABS: HEMOGLOBIN 14.3 g/dl (12.0-15.5); MEAN CORPUSCULAR HEMOGLOBIN 33.4 pg (27.0-33.0); MEAN CORPUSCULAR VOLUME 98.1 fl (80.0-96.0); RED BLOOD COUNT 4.28 10^6/uL (4.00-5.40); WHITE BLOOD COUNT 4.3 10^3/uL (4.0-10.0)
[2018-11-11 08:22] LABS: PLATELET COUNT, AUTOMATED 93 10^3/uL (150-450)
== END ==
LOC: SKLAB7 14:14
PROVIDERS: ATTEND Internal Medicine
DX: Z79.01 Long term (current) use of anticoagulants (principal)

== ENCOUNTER → 2018-11-18 | Outpatient (REF) | payer MEDICARE ==
[2018-11-18 08:24] LABS: BILIRUBIN,TOTAL 0.8 MG/DL (0.2-1.0); CALCIUM LEVEL 9.2 MG/DL (8.8-10.2); CREATININE FOR GFR 1.15 MG/DL (0.55-1.30); GLOMERULAR FILTRATION RATE 47.9 (>32); POTASSIUM SERUM 4.7 MEQ/L (3.5-5.1); TOTAL PROTEIN 6.7 GM/DL (6.4-8.2)
== END ==
LOC: SKLAB7 08:00
PROVIDERS: ATTEND Internal Medicine
DX: E53.8 Deficiency of other specified B group vitamins (principal); E11.9 Type 2 diabetes mellitus without complications; Z79.899 Other long term (current) drug therapy

== ENCOUNTER → 2018-12-06 | Outpatient (REF) | payer MEDICARE ==
[~2018-12-06] MED LIST changes: -/WARF25TA; +COUM1TAB18; -DULO30CA PO; +DULO30CA9 PO; -SENN1TAB2 PO; +SENN1TAB40 PO; +VITA500T17 PO; -VITA500T53 PO
[2018-12-06 07:31] LABS: CALCIUM LEVEL 8.9 MG/DL (8.8-10.2); CREATININE FOR GFR 1.34 MG/DL (0.55-1.30); GLOMERULAR FILTRATION RATE 40.1 (>32); POTASSIUM SERUM 4.1 MEQ/L (3.5-5.1)
== END ==
LOC: SKLAB7 16:45
PROVIDERS: ATTEND Internal Medicine
DX: R50.9 Fever, unspecified (principal); J20.9 Acute bronchitis, unspecified

== ENCOUNTER → 2018-12-07 | Outpatient (REF) | payer MEDICARE ==
[2018-12-07 14:58] LABS: HEMATOCRIT 42.8 % (36.0-47.0); HEMOGLOBIN 14.4 g/dl (12.0-15.5); MEAN CORPUSCULAR HEMOGLOBIN 33.3 pg (27.0-33.0); MEAN CORPUSCULAR HGB CONC 33.6 g/dl (32.0-36.5); MEAN CORPUSCULAR VOLUME 99.1 fl (80.0-96.0); PLATELET COUNT, AUTOMATED 114 10^3/uL (150-450); RED BLOOD COUNT 4.32 10^6/uL (4.00-5.40); WHITE BLOOD COUNT 4.1 10^3/uL (4.0-10.0)
[2018-12-07 15:03] LABS: CALCIUM LEVEL 9.5 MG/DL (8.8-10.2); CREATININE FOR GFR 1.47 MG/DL (0.55-1.30); GLOMERULAR FILTRATION RATE 36.1 (>32); POTASSIUM SERUM 4.1 MEQ/L (3.5-5.1)
--- NOTE | 2018-12-07 16:56 | REP ---
Chest, sitting AP and lateral views: Comparison is 01/15/2018. There are no infiltrates. There are no pleural effusions. There are no lung masses or nodules. Lung miguel are clear and unchanged. Cardiac size is upper normal. The jose, mediastinum, skeletal structures are unchanged. Impression: No acute cardiopulmonary findings. No interval change. Electronically Signed by Fabian Morgan MD 12/07/2018 04:47 P
[2018-12-07 20:28] LABS: APPEARANCE, URINE CLOUDY (CLEAR); BACTERIA, URINE AUTO 3+ (NEGATIVE); BILIRUBIN, URINE AUTO NEGATIVE (NEGATIVE); BLOOD, URINE BLOOD NEGATIVE (NEGATIVE); COLOR, URINE YELLOW (YELLOW); GLUCOSE, URINE (UA) AUTO 2+ mg/dL (NEGATIVE); KETONE, URINE AUTO NEGATIVE (NEGATIVE); LEUKOCYTE ESTERASE, URINE AUTO 3+ (NEGATIVE); NITRITE, URINE AUTO POSITIVE (NEGATIVE); PROTEIN, URINE AUTO NEGATIVE (NEGATIVE); RBC, URINE AUTO 1 /HPF (0-3); SPECIFIC GRAVITY URINE AUTO 1.019 (1.002-1.035); SQUAMOUS EPITHELIAL CELL UR AU 1 /HPF (0-6); UROBILINOGEN, URINE AUTO 0.2 mg/dL (0.0-2.0); WBC, URINE AUTO TNTC /HPF (0-3)
== END ==
LOC: SKLAB7 13:42
PROVIDERS: ATTEND Internal Medicine
DX: R50.9 Fever, unspecified (principal); N18.9 Chronic kidney disease, unspecified; J20.9 Acute bronchitis, unspecified; Z79.01 Long term (current) use of anticoagulants

== ENCOUNTER → 2018-12-07 | Outpatient (REF) | payer MEDICARE | LOC: SKLAB7 19:36 | PROVIDERS: ATTEND Internal Medicine | DX: R41.0 Disorientation, unspecified (principal); Z13.89 Encounter for screening for other disorder ==

== ENCOUNTER → 2018-12-13 | Outpatient (REF) | payer MEDICARE ==
[2018-12-13 07:56] LABS: CALCIUM LEVEL 8.4 MG/DL (8.8-10.2); CREATININE FOR GFR 1.28 MG/DL (0.55-1.30); GLOMERULAR FILTRATION RATE 42.3 (>32); POTASSIUM SERUM 4.4 MEQ/L (3.5-5.1)
== END ==
LOC: SKLAB7 07:00
PROVIDERS: ATTEND Internal Medicine
DX: R60.9 Edema, unspecified (principal)

== ENCOUNTER → 2018-12-16 | Outpatient (REF) | payer MEDICARE ==
[2018-12-16 08:39] LABS: HEMATOCRIT 43.8 % (36.0-47.0); HEMOGLOBIN 14.5 g/dl (12.0-15.5); MEAN CORPUSCULAR HEMOGLOBIN 33.3 pg (27.0-33.0); MEAN CORPUSCULAR HGB CONC 33.1 g/dl (32.0-36.5); MEAN CORPUSCULAR VOLUME 100.5 fl (80.0-96.0); PLATELET COUNT, AUTOMATED 114 10^3/uL (150-450); RED BLOOD COUNT 4.36 10^6/uL (4.00-5.40)
== END ==
LOC: SKLAB7 07:00
PROVIDERS: ATTEND Internal Medicine
DX: E03.9 Hypothyroidism, unspecified (principal); R60.9 Edema, unspecified

== ENCOUNTER → 2019-01-13 | Outpatient (REF) | payer MEDICARE ==
[2019-01-13 09:17] LABS: HEMOGLOBIN A1c 8.6 %
[2019-01-13 09:27] LABS: BILIRUBIN,TOTAL 1.1 MG/DL (0.2-1.0); CALCIUM LEVEL 9.4 MG/DL (8.8-10.2); CREATININE FOR GFR 1.04 MG/DL (0.55-1.30); GLOMERULAR FILTRATION RATE 53.7 (>32); POTASSIUM SERUM 3.9 MEQ/L (3.5-5.1); TOTAL PROTEIN 6.3 GM/DL (6.4-8.2)
== END ==
LOC: SKLAB7 08:09
PROVIDERS: ATTEND Internal Medicine
DX: E11.9 Type 2 diabetes mellitus without complications (principal)

== ENCOUNTER → 2019-01-20 | Outpatient (REF) | payer MEDICARE ==
[2019-01-20 08:23] LABS: ACETAMINOPHEN LEVEL < 2.0 UG/ML (10.0-30.0); ALBUMIN 3.1 GM/DL (3.2-5.2); ALT/SGPT 33 U/L (12-78); BILIRUBIN,DIRECT 0.5 MG/DL (0.0-0.2); BILIRUBIN,TOTAL 1.2 MG/DL (0.2-1.0); TOTAL PROTEIN 6.7 GM/DL (6.4-8.2)
== END ==
LOC: SKLAB7 13:21
PROVIDERS: ATTEND Internal Medicine
DX: R94.5 Abnormal results of liver function studies (principal); Z79.899 Other long term (current) drug therapy
CPT/HCPCS: 36415; 80076; 82140; G0480

== ENCOUNTER → 2019-01-31 | Outpatient (CLI) | payer MEDICARE ==
--- NOTE | 2019-01-31 13:10 | REP ---
CT Head without contrast HISTORY: Vertigo COMPARISON: 10/15/2017 Areas of decreased attenuation are present in the periventricular white matter. This represents small-vessel ischemic disease. There is no intraparenchymal hemorrhage, acute infarct, mass or midline shift. The ventricular system and cortical sulci as well as subarachnoid space in the posterior fossa are dilated consistent with moderate volume loss. There is no extra cerebral collection. There is no fracture. The visualized sinuses are clear. IMPRESSION: 1. Small vessel ischemic disease. 2. Moderate volume loss. Electronically Signed by Galen Sotelo MD 01/31/2019 01:02 P
== END ==
LOC: M RAD 12:15
PROVIDERS: ATTEND Nurse Practitioner Family
DX: I73.9 Peripheral vascular disease, unspecified (principal); R42 Dizziness and giddiness; H53.2 Diplopia

== ENCOUNTER → 2019-01-31 | Outpatient (REF) | payer MEDICARE ==
[2019-01-31 13:34] LABS: HEMATOCRIT 41.6 % (36.0-47.0); HEMOGLOBIN 14.3 g/dl (12.0-15.5); MEAN CORPUSCULAR HEMOGLOBIN 34.6 pg (27.0-33.0); MEAN CORPUSCULAR HGB CONC 34.4 g/dl (32.0-36.5); MEAN CORPUSCULAR VOLUME 100.7 fl (80.0-96.0); RED BLOOD COUNT 4.13 10^6/uL (4.00-5.40); WHITE BLOOD COUNT 3.7 10^3/uL (4.0-10.0)
[2019-01-31 13:41] LABS: PLATELET COUNT, AUTOMATED 87 10^3/uL (150-450)
[2019-01-31 14:06] LABS: BLOOD UREA NITROGEN 25 MG/DL (7-18); CALCIUM LEVEL 9.4 MG/DL (8.8-10.2); CARBON DIOXIDE LEVEL 27 MEQ/L (21-32); CHLORIDE LEVEL 101 MEQ/L (98-107); CREATININE FOR GFR 1.17 MG/DL (0.55-1.30); GLOMERULAR FILTRATION RATE 46.9 (>32); GLUCOSE, FASTING 310 MG/DL (70-100); MAGNESIUM LEVEL 1.8 MG/DL (1.8-2.4); POTASSIUM SERUM 3.8 MEQ/L (3.5-5.1); SODIUM LEVEL 138 MEQ/L (136-145)
--- NOTE | 2019-01-31 18:47 | ECGEPIP ---
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 Could not rule out prior septal/inferior infarctions. Rhythm change with faster rate than 10/05/17. Electronically Signed on 01-31-2019 18:47:29 EDT by Cem Duarte
[2019-02-01 11:04] LABS: CPK CREATINE PHOSPHOKINASE 55 U/L (26-192); MB/CK RELATIVE INDEX 4.73 (< OR =4); TROPONIN I < 0.02 NG/ML (< 0.10)
== END ==
LOC: SKLAB7 11:25
PROVIDERS: ATTEND Internal Medicine
DX: R42 Dizziness and giddiness (principal); H53.2 Diplopia

== ENCOUNTER → 2019-02-01 | Outpatient (REF) | payer MEDICARE ==
--- NOTE | 2019-02-01 20:51 | ECGEPIP ---
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 Slower rate than 01/31/19. Electronically Signed on 02-01-2019 20:50:51 EDT by Cem Duarte
== END ==
LOC: SKLAB7 07:28
PROVIDERS: ATTEND Internal Medicine
DX: I48.91 Unspecified atrial fibrillation (principal); R94.31 Abnormal electrocardiogram [ECG] [EKG]

== ENCOUNTER → 2019-02-03 | Outpatient (CLI) | payer MEDICARE ==
--- NOTE | 2019-02-04 18:57 | ECHO ---
DATE OF PROCEDURE: 02/03/2019 Date of : 1935 Age: 83 Gender: Female. Height: 66 inches Weight: 165 pounds Body surface area: 1.84 meters squared Outpatient. REFERRING PHYSICIAN: Dr. Amber aPt INDICATION: Suspected atrial fibrillation. MEASUREMENTS: 2D Measurements: RV: 2.8 cm LV: 4.0 cm Septum: 1.1 cm Posterior wall: 1.1 cm Aortic root: 3.2 cm LA: 3.5 cm LVEF: 65% Doppler Measurements: AV: 1.08 meters per second LVOT: 0.9 meters per second LVOT diameter: 2.0 cm MV-E: 53, A: 84, EA ratio: 0.6 E prime: 5.7, A prime: 10.5, E/E prime ratio: 9.3 PV: 0.65 meters per second Pulmonary artery acceleration time: 127 milliseconds PASP: 22 mmHg COMMENTS: Multifocal atrial rhythm (not atrial fibrillation - clearly discernible isolated P waves of varying morphologies). No intraventricular conduction disturbance. Technically challenging study in light of the patient's body habitus but diagnostically useful information was still obtained. M-mode and two-dimensional echocardiography was performed with pulsed, continuous wave, color flow and tissue Doppler studies. Normal left ventricular size with wall thickness, upper limits of normal and normal wall motion. Normal left atrial size but Doppler evidence of an impairment of left ventricular (LV) diastolic function with EA reversal, yet currently normal estimated mean left atrial pressure. Normal right heart chamber sizes and motion and estimated pulmonary arterial pressure. We could not visualize her inferior vena cava to further estimate her central venous pressure. Normal appearing aortic valve and function. Normal aortic root dimensions. Slightly thickened mitral annulus but normal leaflet excursion with no posterior systolic buckling and only very mild insufficiency. No apparent intracardiac mass or pericardial effusion.
== END ==
LOC: M CARPUL 09:22
PROVIDERS: ATTEND Internal Medicine
DX: I48.91 Unspecified atrial fibrillation (principal)

== ENCOUNTER → 2019-02-07 | Outpatient (REF) | payer MEDICARE ==
[2019-02-07 07:54] LABS: ALBUMIN 2.8 GM/DL (3.2-5.2); BILIRUBIN,DIRECT 0.3 MG/DL (0.0-0.2); BILIRUBIN,TOTAL 0.8 MG/DL (0.2-1.0); TOTAL PROTEIN 6.9 GM/DL (6.4-8.2)
== END ==
LOC: SKLAB7 07:00
PROVIDERS: ATTEND Internal Medicine
DX: R94.5 Abnormal results of liver function studies (principal)

== ENCOUNTER → 2019-02-08 | Outpatient (REF) | payer MEDICARE ==
--- NOTE | 2019-02-09 09:43 | ECGEPIP ---
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
== END ==
LOC: SKLAB7 07:31
PROVIDERS: ATTEND Internal Medicine
DX: I48.91 Unspecified atrial fibrillation (principal)

== ENCOUNTER → 2019-02-25 | Outpatient (REF) | payer MEDICARE ==
[2019-02-25 10:37] LABS: HEMATOCRIT 38.7 % (36.0-47.0); MEAN CORPUSCULAR HEMOGLOBIN 34.5 pg (27.0-33.0); MEAN CORPUSCULAR HGB CONC 33.6 g/dl (32.0-36.5); MEAN CORPUSCULAR VOLUME 102.7 fl (80.0-96.0); RED BLOOD COUNT 3.77 10^6/uL (4.00-5.40); WHITE BLOOD COUNT 3.9 10^3/uL (4.0-10.0)
[2019-02-25 10:44] LABS: PLATELET COUNT, AUTOMATED 87 10^3/uL (150-450)
== END ==
LOC: SKLAB7 09:45
PROVIDERS: ATTEND Internal Medicine
DX: Z79.01 Long term (current) use of anticoagulants (principal)

== ENCOUNTER → 2019-03-04 | Outpatient (REF) | payer MEDICARE ==
[2019-03-04 10:37] LABS: INR 2.58; PROTHROMBIN TIME 27.5 SECONDS (11.8-14.0)
== END ==
LOC: SKLAB3 07:35 → SKLAB7 07:35
PROVIDERS: ATTEND Internal Medicine
DX: Z79.01 Long term (current) use of anticoagulants (principal); E11.9 Type 2 diabetes mellitus without complications

== ENCOUNTER → 2019-03-09 | Outpatient (CLI) | payer MEDICARE ==
[~2019-03-09] MED LIST changes: +ACET-907 PO; +CLEO300C2 PO; +DITR5TAB PO; +DULC10SU2 PR; -DULO1CAP2 PO; +DULO1CAP5 PO; +ENEMENE PR; +FURO40TA2 PO; +GABA-843 PO; +INSU100V2 SC; +LACT10SO29 PO; +LEVE1INJ5 SC; +METF-839 PO; +MIRA1TAB3 PO; +MOM30SS PO; +NADO20TA PO; +SPIR-10 PO; +SYNT100T PO; +TRAM50TA2 PO; +VITA-145 PO; +XARE10TA PO; +XARE20TA PO
--- NOTE | 2019-03-09 09:08 | REP ---
RIGHT UPPER QUADRANT ULTRASOUND: Real-time sonographic evaluation of the right upper quadrant performed. The study is limited due to bowel gas and body habitus. The gallbladder is not well visualized due to these limiting factors. There is no intrahepatic or extrahepatic biliary dilatation, common bile measuring 4 mm. The liver demonstrates diffuse heterogeneous increased echotexture compatible with diffuse fibrofatty infiltration. No gross liver or pancreatic mass is seen within the limits of the study. Right kidney demonstrates no gross hydronephrosis with normal size 10.1 cm in length. There is mild free fluid in the right upper quadrant. IMPRESSION: Limited exam due to body habitus and bowel gas. Gallbladder is not well visualized. There are findings suggesting diffuse fibrofatty infiltration with no gross liver mass seen. Mild free fluid in the right upper quadrant. Electronically Signed by Fabian Rocha MD 03/11/2019 12:22 P
== END ==
LOC: M RAD 07:06
PROVIDERS: ATTEND Internal Medicine
DX: R93.9 Diagnostic imaging inconclusive due to excess body fat of patient (principal)

== ENCOUNTER → 2019-03-11 | Outpatient (REF) ==
[~2019-03-11] MED LIST changes: +ALBU83IN INH; +GUAIDM5UD PO; +LOSA25TA14 PO; +SENN-53 PO; -SENN1TAB40 PO; -SULF1TAB72 PO; +SULF400T14 PO; +VITMTA PO
== END ==
LOC: SKLAB7 17:33
PROVIDERS: ATTEND Internal Medicine
DX: R73.01 Impaired fasting glucose (principal)

== ENCOUNTER 2019-03-19 21:30 | Inpatient (IN) | payer MEDICARE ==
[~2019-03-19] VITALS: Ht 147.3 cm; Wt 79.5 kg
[2019-03-19] MEDS: GABAPENTIN 300 MG CAP PO SCH (21:00)
[2019-03-19] MEDS: LACTULOSE 20 GM/30 ML SYRUP UD PO SCH (21:00)
[2019-03-19] MEDS: DOCUSATE SODIUM 100 MG CAP PO SCH (21:00)
[2019-03-19] MEDS: LEVEMIR (INSULIN DETEMIR) 1 UNITS/0.01ML SC SCH (21:00)
[2019-03-19] MEDS: PRAMIPEXOLE 1 MG TAB PO SCH (21:00)
[~2019-03-19 21:30] MED LIST changes: -ACET-907 PO; -ALBU83IN INH; -CLEO300C2 PO; -DITR5TAB PO; -DULC10SU2 PR; -ENEMENE PR; +ENOXAPARIN 80 MG/0.8 ML SYRINGE (J1650) SC SCH; -FURO40TA2 PO; -GABA-843 PO; -GUAIDM5UD PO; -INSU100V2 SC; -LACT10SO29 PO; -LEVE1INJ5 SC; -LOSA25TA14 PO; -METF-839 PO; -MIRA1TAB3 PO; -MOM30SS PO; -NADO20TA PO; -SENN-53 PO; +SENN1TAB40 PO; -SPIR-10 PO; +SULF1TAB72 PO; -SULF400T14 PO; -SYNT100T PO; -TRAM50TA2 PO; -VITA-145 PO; -VITMTA PO; -XARE10TA PO; -XARE20TA PO
[2019-03-19] MEDS ORDERED: NS 1,000 ML IV ONE ×2 (21:45→23:00)
[2019-03-19 22:26] LABS: HEMATOCRIT 41.2 % (36.0-47.0); HEMOGLOBIN 13.9 g/dl (12.0-15.5); MEAN CORPUSCULAR HEMOGLOBIN 33.5 pg (27.0-33.0); MEAN CORPUSCULAR HGB CONC 33.7 g/dl (32.0-36.5); MEAN CORPUSCULAR VOLUME 99.3 fl (80.0-96.0); PLATELET COUNT, AUTOMATED 111 10^3/uL (150-450); RED BLOOD COUNT 4.15 10^6/uL (4.00-5.40); WHITE BLOOD COUNT 7.3 10^3/uL (4.0-10.0)
[2019-03-19 22:47] LABS: ALBUMIN 2.9 GM/DL (3.2-5.2); BILIRUBIN,TOTAL 2.2 MG/DL (0.2-1.0); C REACTIVE PROTEIN QUANTITATIV 3.04 MG/DL (0.00-0.30); CALCIUM LEVEL 9.1 MG/DL (8.8-10.2); CREATININE FOR GFR 1.6 MG/DL (0.55-1.30); GLOMERULAR FILTRATION RATE 32.7 (>32); POTASSIUM SERUM 5.3 MEQ/L (3.5-5.1); TOTAL PROTEIN 7.3 GM/DL (6.4-8.2)
--- NOTE | 2019-03-19 22:50 | REPVR ---
EXAM: US Duplex Right Lower Extremity Veins, Limited EXAM DATE/TIME: 03/19/2019 10:06 PM CLINICAL HISTORY: 83 years old, female; Edema, localized; Lower extremity, right; Additional info: Swelling TECHNIQUE: Imaging protocol: Real-time Duplex ultrasound of the Right Lower Extremity with 2-D becker scale, color Doppler flow and spectral waveform analysis with image documentation. Limited exam was focused on the right lower extremity veins. COMPARISON: US Duplex, Ext LOWER veins, bilat BILATERAL 10/20/2018 12:53 PM FINDINGS: Limitations: Markedly limited examination due to patient motion and discomfort. Right deep veins: Questionable nonocclusive thrombus in the common femoral and proximal femoral veins. The mid femoral and popliteal veins are grossly patent without thrombus. The distal femoral vein is suboptimally visualized. Right superficial veins: Unremarkable. Saphenofemoral junction is patent without thrombus. Soft tissues: Diffuse soft tissue swelling. IMPRESSION: 1. Markedly limited examination due to patient motion and discomfort. 2. Questionable nonocclusive thrombus in the common femoral and proximal femoral veins, suboptimally evaluated. Electronically signed by: Avery Renteria On 03/19/2019 22:49:52 PM
[2019-03-20] VITALS (9 sets, daily range): BP systolic 97–130; BP diastolic 42–78
[2019-03-20] MEDS ORDERED: CEFTAROLINE FOSAMIL 400 MG in D5W MINI-BAG PLUS 50 ML IV ONE ×2
[2019-03-20] MEDS ORDERED: MAALOX 30 ML SUSP *UDC PO PRN (00:30)
[2019-03-20] MEDS ORDERED: MOM 30ML SUSPENSION UDC PO PRN (00:30)
[2019-03-20] MEDS ORDERED: LEVE1INJ5 SC (00:38)
[2019-03-20] MEDS ORDERED: MIRA1TAB3 PO (00:38)
[2019-03-20] MEDS ORDERED: DITR5TAB PO (00:38)
[2019-03-20] MEDS ORDERED: FURO40TA2 PO (00:38)
[2019-03-20] MEDS ORDERED: ACET-907 PO (00:38)
[2019-03-20] MEDS ORDERED: XARE10TA PO (00:38)
[2019-03-20] MEDS ORDERED: GLIP5TAB8 PO (00:38)
[2019-03-20] MEDS ORDERED: MOM30SS PO (00:38)
[2019-03-20] MEDS ORDERED: LOSA50TA88 PO (00:38)
[2019-03-20] MEDS ORDERED: VITA-145 PO (00:38)
[2019-03-20] MEDS ORDERED: METF-839 PO (00:38)
[2019-03-20] MEDS ORDERED: DULC10SU2 PR (00:38)
[2019-03-20] MEDS ORDERED: LACT10SO29 PO (00:38)
[2019-03-20] MEDS ORDERED: ENEMENE PR (00:38)
[2019-03-20] MEDS ORDERED: SPIR-10 PO (00:38)
[2019-03-20] MEDS ORDERED: SYNT100T PO (00:38)
[2019-03-20] MEDS ORDERED: INSU100V2 SC ×3 (00:38)
[2019-03-20] MEDS ORDERED: GABA-843 PO (00:38)
[2019-03-20] MEDS ORDERED: NADO20TA PO (00:38)
[2019-03-20] MEDS ORDERED: TRAM50TA2 PO (00:38)
[2019-03-20] MEDS ORDERED: GLUCOSE 4 GM CHEW TABLET PO PRN (00:45)
[2019-03-20] MEDS ORDERED: GLUCAGON FOR INJ 1 MG VIAL (J1610) SC PRN (00:45)
[2019-03-20] MEDS ORDERED: DEXTROSE 50% 50 ML SYRINGE IV PRN (00:45)
--- NOTE | 2019-03-20 00:51 | HPEPDOC ---
General Date of Admission 03/20/19 Date of Service: Mar 20, 2019 Primary Care Physician: SKIP MARTINEZ DO Attending Physician: CLAY QUIÑNOES MD Chief Complaint The patient is a 83-year-old female admitted with a reason for visit of Extremity Pain. Source: RN/MD, EMS notes reviewed Exam Limitations: Dementia Timing/Duration: Unsure Severity: Other (unknown) Associated Symptoms: Unobtainable, Other (, unknown) History of Present Illness 83 years old white female from longterm, was sent to ED with the diagnosis of cellulitis and DVT of right lower extremity. Patient is unable to provide me any history. Secondary to advanced dementia. History was obtained from a ED, M.D., and the medical records Home Medications Scheduled Cholecalciferol (Vitamin D3) (Vitamin D3) 1,000 Unit Tablet, 1,000 UNIT PO DAILY, (Reported) Furosemide (Furosemide) 40 Mg Tablet, 40 MG PO DAILY, (Reported) Gabapentin (Gabapentin) 300 Mg Capsule, 300 MG PO TID, (Reported) Glipizide (Glipizide) 5 Mg Tablet, 5 MG PO BID, (Reported) 0730,1130 Insulin Detemir (Levemir Flextouch) 100 Unit/1 Ml Insuln.pen, 42 UNIT SC QHS, (Reported) Insulin Lispro (Insulin Lispro) 100 Unit/1 Ml Vial, 12 UNIT SC QAM, (Reported) 0730 Insulin Lispro (Insulin Lispro) 100 Unit/1 Ml Vial, 14 UNIT SC DAILY, (Reported) NOON DOSE Insulin Lispro (Insulin Lispro) 100 Unit/1 Ml Vial, 8 UNIT SC QPM, (Reported) 1700 Lactulose (Lactulose) 10 Gm/15 Ml Solution, 30 ML PO QID, (Reported) Levothyroxine Sodium (Synthroid) 100 Mcg Tablet, 100 MCG PO DAILY, (Reported) Losartan Potassium (Losartan Potassium) 50 Mg Tablet, 50 MG PO DAILY, (Reported) Metformin HCl (Metformin HCl) 500 Mg Tablet, 500 MG PO BID, (Reported) Nadolol (Nadolol) 20 Mg Tablet, 20 MG PO DAILY, (Reported) Oxybutynin Chloride (Ditropan Xl) 5 Mg Tab.er.24, 5 MG PO DAILY, (Reported) Pramipexole Di-HCl (Mirapex) 1 Mg Tablet, 1 MG PO QHS, (Reported) Rivaroxaban (Xarelto) 10 Mg Tablet, 10 MG PO DAILY, (Reported) Spironolactone (Spironolactone) 25 Mg Tablet, 12.5 MG PO DAILY, (Reported) Scheduled PRN Acetaminophen (Tylenol) 325 Mg Tablet, 650 MG PO Q4H PRN for PAIN / FEVER, (Reported) Bisacodyl (Dulcolax) 10 Mg Supp.rect, 10 MG OH DAILY PRN for CONSTIPATION, (Reported) Milk Of Magnesia (Milk of Magnesia) 2,400 Mg/10 Ml Oral.susp, 30 ML PO DAILY PRN for CONSTIPATION, (Reported) Sodium Phosphate,Bandera-Dibasic (Enema) 133 Ml Enema, 1 SUPA OH DAILY PRN for CONSTIPATION, (Reported) Tramadol HCl (Tramadol HCl) 50 Mg Tablet, 25 MG PO Q8H PRN for PAIN, (Reported) Allergies Coded Allergies: red dye (Verified Allergy, Unknown, 03/19/19) Past Medical History Medical History DVT, cellulitis, previously on Xarelto ORIF right hip, hysterectomy, bilateral oophorectomy, left lump left breast lumpectomy, right second toe neuropathy, history of CHF, Kath disease stage III overdoses and fatty liver. Bulging disc at L2, L1 and L5-S1. Polycythemia vera have suicidal ideation in the past Family History Significant Family History: No pertinent family hx Social History * Smoker: Denies Alcohol: Denies Drugs: denies A-FIB/CHADSVASC A-FIB History Current/History of A-Fib/PAF?: No Current PO Anticoag Therapy: No Review of Systems Constitutional: Reports: Other (, unable to obtained review of systems secondary to advanced dementia) Physical Examination General Exam: Positive: Other (awake but oriented 0) Eye Exam: Positive: PERRLA ENT Exam: Positive: Atraumatic, Mucous membr. moist/pink Neck Exam: Positive: Supple Chest Exam: Positive: Clear to auscultation Heart Exam: Positive: Rate Normal, Normal S1, Normal S2 Abdomen Exam: Positive: Normal bowel sounds, Soft Extremity Exam: Positive: Other (. Positive redness and tenderness and right lower extremity, just above the medial malleolus, 1+ bipedal edema positive); Negative: Clubbing, Cyanosis, Edema, Normal pulses, Tenderness, Swelling Skin Exam: Positive: Other skin issue (redness and tenderness of the skin just above the right ankle. ) Neuro Exam: Positive: Other (. Moves all extremities. No sign of focal motor or sensory deficit) Psych Exam: Negative: Mental status NL, Mood NL, Anxiety, Memory Intact, Oriented x 3, Other Vital Signs Vital Signs Date Time Temp Pulse Resp B/P (MAP) Pulse Ox O2 Delivery O2 Flow Rate FiO2 03/19/19 23:31 97 16 97 Room Air 03/19/19 23:16 150/66 (94) 03/19/19 21:48 98.1 Laboratory Data Labs 24H Laboratory Tests 2 03/19/19 22:07: Nucleated Red Blood Cells % (auto) 0.0, Anion Gap 12, Glomerular Filtration Rate 32.7, Lactic Acid Level 4.2*H, Blood Urea Nitrogen 30H, Creatinine 1.60H, Sodium Level 137, Potassium Level 5.3H, Chloride Level 103, Carbon Dioxide Level 22, Calcium Level 9.1, Aspartate Amino Transf (AST/SGOT) 79H, Alanine Aminotransferase (ALT/SGPT) 48, Alkaline Phosphatase 212H, Total Bilirubin 2.2H, Total Protein 7.3, Albumin 2.9L, Ammonia 66H, C-Reactive Protein, Quantitative 3.04H, Albumin/Globulin Ratio 0.66L CBC/BMP Laboratory Tests 03/19/19 22:07 Red Blood Count 4.15, Mean Corpuscular Volume 99.3 H, Mean Corpuscular Hemoglobin 33.5 H, Mean Corpuscular Hemoglobin Concent 33.7, Red Cell Distribution Width 13.7, Calcium Level 9.1, Aspartate Amino Transf (AST/SGOT) 79 H, Alanine Aminotransferase (ALT/SGPT) 48, Alkaline Phosphatase 212 H, Total B ilirubin 2.2 H, Total Protein 7.3, Albumin 2.9 L Microbiology Microbiology 03/19/19 Blood Culture, Received Pending 03/19/19 Blood Culture, Received Pending Problems (1) Cellulitis of lower extremity Status: Acute Problem Text: Admit to medical floor Normal saline 100 mL per hour Teflaro 400 mg IV every 12 hours Elevate right lower extremity Local care Continue home meds, once the med rec is completed by pharmacy Gallbladder consistent diet Fingerstick blood sugar every before meals and at bedtime with coverage Continue home meds A.m. labs have been ordered (2) DVT of lower extremity (deep venous thrombosis) Status: Acute Problem Text: Patient was on xarelto outpatient but was DC'd for some unknown reasons Start patient on Lovenox 1 mg/kg every 12 hours I don't have it available on the patient so just as an educated guess she has been started on 60 mg every 12 hours Elevation of right lower extremity Restart by mouth, Xarelto once she is clinically stable Plan / VTE VTE Prophylaxis Ordered?: Yes CLAY QUIÑONES MD Mar 20, 2019 00:51
--- NOTE | 2019-03-20 00:53 | REPVR ---
EXAM: XR Chest, 1 View EXAM DATE/TIME: 03/20/2019 12:19 AM CLINICAL HISTORY: 83 years old, female; Shortness of breath; Additional info: Fatigue TECHNIQUE: Imaging protocol: XR of the chest, 1 view. COMPARISON: CR Chest, 2 view PA, Lat 12/07/2018 1:55 PM FINDINGS: Lungs: Streaky opacities at the lung bases, likely secondary to atelectasis and/or scarring. No consolidation. Pleural space: Unremarkable. No pleural effusion. No pneumothorax. Heart/Mediastinum: Unremarkable. No cardiomegaly. Bones/joints: No acute osseous abnormality. Osteopenia. Degenerative changes of the spine and shoulders. IMPRESSION: 1. No acute radiographic findings. 2. Additional findings, as above. Electronically signed by: Avery Renteria On 03/20/2019 00:53:26 AM
[2019-03-20] MEDS: NS 1,000 ML IV SCH ×2 (01:49→13:51)
[2019-03-20] MEDS: HumaLOG INSULIN (NovoLOG) PER UNIT SC SCH ×5 (01:54→21:00)
[2019-03-20] MEDS ORDERED: BISACODYL 10 MG SUPP PR PRN (02:15)
[2019-03-20] MEDS: LEVOTHYROXINE 100MCG TABLET (0.1MG) PO SCH (05:55)
[2019-03-20] MEDS ORDERED: glipiZIDE (GLUCOTROL) 5 MG TAB PO SCH (07:30)
[2019-03-20] MEDS ORDERED: metFORMIN (GLUCOPHAGE) 500 MG TAB PO SCH (08:00)
[2019-03-20 08:21] LABS: HEMATOCRIT 37.6 % (36.0-47.0); HEMOGLOBIN 12.6 g/dl (12.0-15.5); MEAN CORPUSCULAR HEMOGLOBIN 35.1 pg (27.0-33.0); MEAN CORPUSCULAR HGB CONC 33.5 g/dl (32.0-36.5); MEAN CORPUSCULAR VOLUME 104.7 fl (80.0-96.0); PLATELET COUNT, AUTOMATED 100 10^3/uL (150-450); RED BLOOD COUNT 3.59 10^6/uL (4.00-5.40); WHITE BLOOD COUNT 11.4 10^3/uL (4.0-10.0)
[2019-03-20 08:45] LABS: C REACTIVE PROTEIN QUANTITATIV 7.97 MG/DL (0.00-0.30); CALCIUM LEVEL 8.2 MG/DL (8.8-10.2); CREATININE FOR GFR 1.29 MG/DL (0.55-1.30); GLOMERULAR FILTRATION RATE 41.9 (>32); POTASSIUM SERUM 4.6 MEQ/L (3.5-5.1)
[2019-03-20] MEDS ORDERED: LOSARTAN 50 MG TAB PO SCH (09:00)
[2019-03-20] MEDS ORDERED: SPIRONOLACTONE 25 MG TAB PO SCH (09:00)
[2019-03-20] MEDS ORDERED: FUROSEMIDE 40 MG TAB PO SCH (09:00)
[2019-03-20] MEDS: oxyBUTYnin *DITROPAN XL* 5 MG TABCR PO SCH (09:15)
[2019-03-20] MEDS: DOCUSATE SODIUM 100 MG CAP PO SCH ×2 (09:15→21:12)
[2019-03-20] MEDS: GABAPENTIN 300 MG CAP PO SCH ×3 (09:15→21:12)
[2019-03-20] MEDS: LACTULOSE 20 GM/30 ML SYRUP UD PO SCH ×4 (09:16→21:12)
[2019-03-20] MEDS: NADOLOL 20MG TABLET PO SCH (09:22)
[2019-03-20] MEDS ORDERED: CEFTAROLINE FOSAMIL 300 MG in D5W MINI-BAG PLUS 50 ML IV SCH (12:00)
[2019-03-20] MEDS: CEFTAROLINE FOSAMIL 400 MG in D5W MINI-BAG PLUS 50 ML IV SCH (12:12)
[2019-03-20] MEDS: traMADol 50 MG TAB PO PRN ×2 (13:07→21:12)
[2019-03-20] MEDS: RIVAROXABAN 20 MG TAB (XARELTO) PO SCH (17:40)
[2019-03-20] MEDS: PRAMIPEXOLE 1 MG TAB PO SCH (21:11)
[2019-03-20] MEDS: LEVEMIR (INSULIN DETEMIR) 1 UNITS/0.01ML SC SCH (21:12)
[2019-03-21] MEDS: NS 1,000 ML IV SCH ×3 (00:39→21:15)
[2019-03-21] MEDS: CEFTAROLINE FOSAMIL 400 MG in D5W MINI-BAG PLUS 50 ML IV SCH ×2 (00:39→12:44)
[2019-03-21 06:00] VITALS: BP 95/57
[2019-03-21 06:11] LABS: HEMATOCRIT 32.6 % (36.0-47.0); MEAN CORPUSCULAR HEMOGLOBIN 33.9 pg (27.0-33.0); MEAN CORPUSCULAR HGB CONC 32.5 g/dl (32.0-36.5); MEAN CORPUSCULAR VOLUME 104.2 fl (80.0-96.0); RED BLOOD COUNT 3.13 10^6/uL (4.00-5.40); WHITE BLOOD COUNT 4.8 10^3/uL (4.0-10.0)
[2019-03-21 06:16] LABS: HEMOGLOBIN 10.6 g/dl (12.0-15.5); PLATELET COUNT, AUTOMATED 74 10^3/uL (150-450)
[2019-03-21] MEDS: LEVOTHYROXINE 100MCG TABLET (0.1MG) PO SCH (06:17)
[2019-03-21 06:39] LABS: BILIRUBIN,TOTAL 1.5 MG/DL (0.2-1.0); CALCIUM LEVEL 7.5 MG/DL (8.8-10.2); CREATININE FOR GFR 1.29 MG/DL (0.55-1.30); GLOMERULAR FILTRATION RATE 41.9 (>32); TOTAL PROTEIN 5.9 GM/DL (6.4-8.2)
[2019-03-21] MEDS: HumaLOG INSULIN (NovoLOG) PER UNIT SC SCH ×4 (08:12→20:08)
[2019-03-21] MEDS: LACTULOSE 20 GM/30 ML SYRUP UD PO SCH ×4 (08:12→20:07)
[2019-03-21] MEDS: DOCUSATE SODIUM 100 MG CAP PO SCH ×2 (08:13→20:09)
[2019-03-21] MEDS: ACETAMINOPHEN TAB 650MG DOSE (2X325MG) PO PRN ×2 (08:13→20:09)
[2019-03-21] MEDS: GABAPENTIN 300 MG CAP PO SCH ×3 (08:14→20:08)
[2019-03-21] MEDS: oxyBUTYnin *DITROPAN XL* 5 MG TABCR PO SCH (08:14)
[2019-03-21] MEDS: NADOLOL 20MG TABLET PO SCH (08:16)
[2019-03-21 14:00] VITALS: BP 115/68
[2019-03-21] MEDS: RIVAROXABAN 20 MG TAB (XARELTO) PO SCH (17:06)
--- NOTE | 2019-03-21 17:52 | IPNPDOC ---
Subjective Date Seen The patient was seen on 03/21/19. at 740am Subjective Chief Complaint/HPI leg pain Events since last encounter no acute overnight events Objective Physical Examination General Exam: Positive: Other (awake but oriented 0) Eye Exam: Positive: PERRLA ENT Exam: Positive: Atraumatic, Mucous membr. moist/pink Neck Exam: Positive: Supple Chest Exam: Positive: Clear to auscultation Heart Exam: Positive: Rate Normal, Normal S1, Normal S2 Abdomen Exam: Positive: Normal bowel sounds, Soft Extremity Exam: Positive: Other (. Positive redness and tenderness and right lower extremity, just above the medial malleolus, 1+ bipedal edema positive); Negative: Clubbing, Cyanosis, Edema, Normal pulses, Tenderness, Swelling Skin Exam: Positive: Other skin issue (redness and tenderness of the skin just above the right ankle. ) Neuro Exam: Positive: Other (. Moves all extremities. No sign of focal motor or sensory deficit) Psych Exam: Negative: Mental status NL, Mood NL, Anxiety, Memory Intact, Oriented x 3, Other Assessment /Plan Assessment is an 83 yr old F w a PMH of DVT, DM, hypothyrodism, cellulitis, ORIF of the right hip, hx of hysterectomy, & bilateral oophorectomy, hx of left lump left breast lumpectomy, right second toe neuropathy, CHF, fatty liver, Bulging discs, Polycythemia vera and remote hx of SI who is admitted for management of RLE DVT & Cellulitis. 1.RLE DVT Plan: c/w xarelto and elevation of leg 2.Cellulitis -afebrile w/o leukocytosis & lactic acid is wnl Plan: switch to Clindamycin 450mg PO Q8H tonight and if WBC # remains wnl and pt is afebrile will dc bc to [facility] 3. DM2 Plan: c/w current meds 4.Hypothyroidism Plan: c/w home meds Problems (1) Cellulitis of lower extremity Status: Acute (2) DVT of lower extremity (deep venous thrombosis) Status: Acute Plan/VTE VTE Prophylaxis Ordered?: Yes VS, I&O, 24H, Fishbone Vital Signs/I&O Vital Signs Date Time Temp Pulse Resp B/P (MAP) Pulse Ox O2 Delivery O2 Flow Rate FiO2 03/21/19 14:00 98.0 70 18 115/68 (84) 95 03/20/19 02:00 Room Air I&O- Last 24 Hours up to 6 AM 03/21/19 05:59 Intake Total 980 ml Balance 980 ml Laboratory Data CBC/BMP Laboratory Tests 03/21/19 05:45 Red Blood Count 3.13 L, Mean Corpuscular Volume 104.2 H, Mean Corpuscular Hemoglobin 33.9 H, Mean Corpuscular Hemoglobin Concent 32.5, Red Cell Distribution Width 14.4, Calcium Level 7.5 L, Aspartate Amino Transf (AST/SGOT) 45 H, Alanine Aminotransferase (ALT/SGPT) 30, Alkaline Phosphatase 115, Total Bilirubin 1.5 H, Total Protein 5.9 L, Albumin 2.0 #L Microbiology Microbiology 03/19/19 Blood Culture - Preliminary, Resulted No growth after 24 hours . All specim... 03/19/19 Blood Culture - Preliminary, Resulted No growth after 24 hours . All specim... DALLAS RUIZ MD Mar 21, 2019 17:52
[2019-03-21] MEDS: LEVEMIR (INSULIN DETEMIR) 1 UNITS/0.01ML SC SCH (20:08)
[2019-03-21] MEDS: PRAMIPEXOLE 1 MG TAB PO SCH (20:08)
[2019-03-21] MEDS: traMADol 50 MG TAB PO PRN (20:09)
[2019-03-21 20:48] VITALS: BP 122/58
[2019-03-21 21:48] VITALS: BP 125/86
[2019-03-22] MEDS: CEFTAROLINE FOSAMIL 400 MG in D5W MINI-BAG PLUS 50 ML IV SCH ×2 (00:16→12:24)
[2019-03-22] MEDS: LEVOTHYROXINE 100MCG TABLET (0.1MG) PO SCH (05:27)
[2019-03-22 05:36] LABS: BASO % 0.6 % (0.0-1.0); EOS # 0.3 10^3/uL (0.0-0.50); EOS % 3.7 % (0.0-3.0); HEMATOCRIT 34.7 % (36.0-47.0); HEMOGLOBIN 11.7 g/dl (12.0-15.5); LYMPH # 1.2 10^3/uL (1.5-4.5); LYMPH % 17.3 % (24.0-44.0); MEAN CORPUSCULAR HEMOGLOBIN 35.2 pg (27.0-33.0); MEAN CORPUSCULAR HGB CONC 33.7 g/dl (32.0-36.5); MEAN CORPUSCULAR VOLUME 104.5 fl (80.0-96.0); MONO # 0.4 10^3/uL (0.0-0.8); MONO % 5.2 % (0.0-5.0); NEUTROPHILS # 5.1 10^3/uL (1.8-7.7); NEUTROPHILS % 72.6 % (36.0-66.0); PLATELET COUNT, AUTOMATED 112 10^3/uL (150-450); RED BLOOD COUNT 3.32 10^6/uL (4.00-5.40); WHITE BLOOD COUNT 7.1 10^3/uL (4.0-10.0)
[2019-03-22 06:00] VITALS: BP 151/83
[2019-03-22 06:01] LABS: CALCIUM LEVEL 7.8 MG/DL (8.8-10.2); CREATININE FOR GFR 1.01 MG/DL (0.55-1.30); GLOMERULAR FILTRATION RATE 55.6 (>32); POTASSIUM SERUM 4.1 MEQ/L (3.5-5.1)
[2019-03-22] MEDS: HumaLOG INSULIN (NovoLOG) PER UNIT SC SCH ×4 (07:30→20:26)
[2019-03-22] MEDS ORDERED: XARE20TA PO (08:11)
[2019-03-22] MEDS ORDERED: CLEO300C2 PO (08:14)
--- NOTE | 2019-03-22 08:25 | DS.PDOC ---
Discharge Summary General Date of Admission Mar 20, 2019 at 00:26 Date of Discharge March 22, 2019 Primary Care Physician: SKIP MARTINEZ DO Attending Physician: DALLAS RUIZ MD Discharge Summary PROCEDURES PERFORMED DURING STAY: [None]. ADMITTING DIAGNOSES: 1. DVT 2. RLE Cellulitis DISCHARGE DIAGNOSES: 1. DVT 2. RLE Cellulitis -resolving COMPLICATIONS/CHIEF COMPLAINT: Cellulitis Of Lower Extremity,Dvt Of Lower Extremi. HISTORY OF PRESENT ILLNESS: is an 83 yr old F w a PMH of DVT, DM, hypothyrodism, cellulitis, ORIF of the right hip, hx of hysterectomy, & bilateral oophorectomy, hx of left lump left breast lumpectomy, right second toe neuropathy, CHF, fatty liver, Bulging discs, Polycythemia vera and remote hx of SI who presented w c/o of lower extremity pain and based on the clincal findings and US was admitted for management of RLE DVT & Cellulitis. HOSPITAL COURSE: She was started on lovenox and transitioned to xarelto and received IV abx. She was afebrile and her WBC # was wnl. She was examined on March 22 at 625 AM denied having acute pain and was agreed with the plan was to sent her back to "home" to . DISCHARGE MEDICATIONS: Please see below. ALLERGIES: Please see below. PHYSICAL EXAMINATION ON DISCHARGE: VITAL SIGNS: Please see below. GENERAL: [NAD] HEENT: [NCAT / EOMI] NECK: [supple] CARDIOVASCULAR EXAMINATION: [RRR/NMRG] RESPIRATORY EXAMINATION: [CTAB on RA] ABDOMINAL EXAMINATION: [soft & NT on palpation] EXTREMITIES: [RLE less swollen than yesterday but still red] SKIN: [see above] NEUROLOGICAL EXAMINATION: [CN 2-12 intact / speech not dysarthric] PSYCHIATRIC EXAMINATION: [alert and oriented to person] LABORATORY DATA: Please see below. IMAGING: US LE "IMPRESSION: 1. Markedly limited examination due to patient motion and discomfort. 2. Questionable nonocclusive thrombus in the common femoral and proximal femoral veins, suboptimally evaluated." PROGNOSIS: [fair] ACTIVITY: [As tolerated]. DIET: [diabetic] DISCHARGE PLAN: [to [facility]] DISPOSITION: . DISCHARGE INSTRUCTIONS: 1. take xarelto 20mg daily for DVT 2. take clindamycin 450mg PO TID for 7 more days for cellulitis ITEMS TO FOLLOWUP ON ON OUTPATIENT: 1. resolution of redness DISCHARGE CONDITION: [Stable]. TIME SPENT ON DISCHARGE: Greater than [20] minutes. Vital Signs/I&Os Vital Signs Date Time Temp Pulse Resp B/P (MAP) Pulse Ox O2 Delivery O2 Flow Rate FiO2 03/22/19 06:00 98.4 68 20 151/83 (105) 93 03/21/19 23:09 2.0 03/20/19 02:00 Room Air I&O- Last 24 Hours up to 6 AM 03/22/19 06:00 Intake Total 540 ml Output Total 150 ml Balance 390 ml Laboratory Data Labs 24H Laboratory Tests 2 03/21/19 10:00: Lactic Acid Followup at 4 Hours 2.4*H 03/21/19 11:50: Lactic Acid Level 2.0 03/21/19 11:54: Bedside Glucose (Misc Panel) 65L 03/21/19 12:17: Bedside Glucose (Misc Panel) 110 03/21/19 16:47: Bedside Glucose (Misc Panel) 232H 03/21/19 19:45: Bedside Glucose (Misc Panel) 259H 03/22/19 05:09: Immature Granulocyte % (Auto) 0.6, White Blood Count 7.1, Red Blood Count 3.32L, Hemoglobin 11.7L, Hematocrit 34.7L, Mean Corpuscular Volume 104.5H, Mean Corpuscular Hemoglobin 35.2H, Mean Corpuscular Hemoglobin Concent 33.7, Red Cell Distribution Width 14.6H, Platelet Count 112L, Neutrophils (%) (Auto) 72.6H, Lymphocytes (%) (Auto) 17.3L, Monocytes (%) (Auto) 5.2H, Eosinophils (%) (Auto) 3.7H, Basophils (%) (Auto) 0.6, Neutrophils # (Auto) 5.1, Lymphocytes # (Auto) 1.2L, Monocytes # (Auto) 0.4, Eosinophils # (Auto) 0.3, Basophils # (Auto) 0.0, Nucleated Red Blood Cells % (auto) 0.0, Anion Gap 7L, Glomerular Filtration Rate 55.6, Blood Urea Nitrogen 19H, Creatinine 1.01, Sodium Level 144, Potassium Level 4.1, Chloride Level 119H, Carbon Dioxide Level 18L, Calcium Level 7.8L 03/22/19 07:52: Bedside Glucose (Misc Panel) 136H CBC/BMP Laboratory Tests 03/22/19 05:09 Red Blood Count 3.32 L, Mean Corpuscular Volume 104.5 H, Mean Corpuscular Hemoglobin 35.2 H, Mean Corpuscular Hemoglobin Concent 33.7, Red Cell Distribution Width 14.6 H, Neutrophils (%) (Auto) 72.6 H, Lymphocytes (%) (Auto) 17.3 L, Monocytes (%) (Auto) 5.2 H, Eosinophils (%) (Auto) 3.7 H, Basophils (%) (Auto) 0.6, Neutrophils # (Auto) 5.1, Lymphocytes # (Auto) 1.2 L, Monocytes # (Auto) 0.4, Eosinophils # (Auto) 0.3, Basophils # (Auto) 0.0, Calcium Level 7.8 L FSBS Laboratory Tests Test 03/21/19 11:54 03/21/19 12:17 03/21/19 16:47 03/21/19 19:45 Range/Units Bedside Glucose (Misc Panel) 65 110 232 259 83-110 MG/DL Test 03/22/19 07:52 Range/Units Bedside Glucose (Misc Panel) 136 83-110 MG/DL Microbiology Microbiology 03/19/19 Blood Culture - Preliminary, Resulted No Growth after 48 hours. All Specime... 03/19/19 Blood Culture - Preliminary, Resulted No Growth after 48 hours. All Specime... Discharge Medications Scheduled Cholecalciferol (Vitamin D3) (Vitamin D3) 1,000 Unit Tablet, 1,000 UNIT PO DAILY, (Reported) Clindamycin Hcl (Cleocin HCl) 300 Mg Capsule, 300 MG PO TID for CELLULITIS Furosemide (Furosemide) 40 Mg Tablet, 40 MG PO DAILY, (Reported) Gabapentin (Gabapentin) 300 Mg Capsule, 300 MG PO TID, (Reported) Glipizide (Glipizide) 5 Mg Tablet, 5 MG PO BID, (Reported) 0730,1130 Insulin Detemir (Levemir Flextouch) 100 Unit/1 Ml Insuln.pen, 42 UNIT SC QHS, (Reported) Insulin Lispro (Insulin Lispro) 100 Unit/1 Ml Vial, 12 UNIT SC QAM, (Reported) 0730 Insulin Lispro (Insulin Lispro) 100 Unit/1 Ml Vial, 14 UNIT SC DAILY, (Reported) NOON DOSE Insulin Lispro (Insulin Lispro) 100 Unit/1 Ml Vial, 8 UNIT SC QPM, (Reported) 1700 Lactulose (Lactulose) 10 Gm/15 Ml Solution, 30 ML PO QID, (Reported) Levothyroxine Sodium (Synthroid) 100 Mcg Tablet, 100 MCG PO DAILY, (Reported) Losartan Potassium (Losartan Potassium) 50 Mg Tablet, 50 MG PO DAILY, (Reported) Metformin HCl (Metformin HCl) 500 Mg Tablet, 500 MG PO BID, (Reported) Nadolol (Nadolol) 20 Mg Tablet, 20 MG PO DAILY, (Reported) Oxybutynin Chloride (Ditropan Xl) 5 Mg Tab.er.24, 5 MG PO DAILY, (Reported) Pramipexole Di-HCl (Mirapex) 1 Mg Tablet, 1 MG PO QHS, (Reported) Rivaroxaban (Xarelto) 10 Mg Tablet, 10 MG PO DAILY, (Reported) Rivaroxaban (Xarelto) 20 Mg Tablet, 20 MG PO QPM with food Spironolactone (Spironolactone) 25 Mg Tablet, 12.5 MG PO DAILY, (Reported) Scheduled PRN Acetaminophen (Tylenol) 325 Mg Tablet, 650 MG PO Q4H PRN for PAIN / FEVER, (Reported) Bisacodyl (Dulcolax) 10 Mg Supp.rect, 10 MG KS DAILY PRN for CONSTIPATION, (Reported) Milk Of Magnesia (Milk of Magnesia) 2,400 Mg/10 Ml Oral.susp, 30 ML PO DAILY PRN for CONSTIPATION, (Reported) Sodium Phosphate,Schleicher-Dibasic (Enema) 133 Ml Enema, 1 SUPA KS DAILY PRN for CONSTIPATION, (Reported) Tramadol HCl (Tramadol HCl) 50 Mg Tablet, 25 MG PO Q8H PRN for PAIN, (Reported) Allergies Coded Allergies: red dye (Verified Allergy, Unknown, 03/19/19) DALLAS RUIZ MD Mar 22, 2019 08:25
[2019-03-22] MEDS: DOCUSATE SODIUM 100 MG CAP PO SCH ×2 (09:00→20:26)
[2019-03-22] MEDS ORDERED: ALBUTEROL SULFATE 2.5 MG/0.5 ML INH NEB SOLN NEB ONE (09:00)
[2019-03-22] MEDS: GABAPENTIN 300 MG CAP PO SCH ×3 (09:26→21:18)
[2019-03-22] MEDS: ACETAMINOPHEN TAB 650MG DOSE (2X325MG) PO PRN ×2 (09:27→18:43)
[2019-03-22] MEDS: LACTULOSE 20 GM/30 ML SYRUP UD PO SCH ×2 (09:28→12:24)
[2019-03-22] MEDS: oxyBUTYnin *DITROPAN XL* 5 MG TABCR PO SCH (09:28)
[2019-03-22] MEDS: NADOLOL 20MG TABLET PO SCH (09:28)
[2019-03-22] MEDS ORDERED: FUROSEMIDE 20 MG/2 ML VIAL (J1940) IV ONE (11:00)
--- NOTE | 2019-03-22 13:19 | IPNPDOC ---
Subjective Date Seen The patient was seen on 03/22/19. at 625am Subjective Chief Complaint/HPI extremity pain Events since last encounter the patient has no acute c/o per d/w nursing staff she is more short of breath than yesterday Objective Physical Examination General Exam: Positive: Other (awake but oriented 0) Eye Exam: Positive: PERRLA ENT Exam: Positive: Atraumatic, Mucous membr. moist/pink Neck Exam: Positive: Supple Chest Exam: Positive: Diminished Heart Exam: Positive: Rate Normal, Normal S1, Normal S2 Abdomen Exam: Positive: Normal bowel sounds, Soft Extremity Exam: Positive: Other (. Positive redness and tenderness and right lower extremity, just above the medial malleolus, 1+ bipedal edema positive); Negative: Clubbing, Cyanosis, Edema, Normal pulses, Tenderness, Swelling Skin Exam: Positive: Other skin issue (redness and tenderness of the skin just above the right ankle. ) Neuro Exam: Positive: Other (. Moves all extremities. No sign of focal motor or sensory deficit) Psych Exam: Negative: Mental status NL, Mood NL, Anxiety, Memory Intact, Oriented x 3, Other Assessment /Plan Assessment is an 83 yr old F w a PMH of DVT, DM, hypothyrodism, cellulitis, ORIF of the right hip, hx of hysterectomy, & bilateral oophorectomy, hx of left lump left breast lumpectomy, right second toe neuropathy, CHF, fatty liver, Bulging discs, Polycythemia vera and remote hx of SI who is admitted for management of RLE DVT & Cellulitis. 1.RLE DVT Plan: c/w xarelto and elevation of leg 2.Cellulitis -afebrile w/o leukocytosis & lactic acid is wnl Plan: Clindamycin 3. DM2 Plan: c/w current meds 4.Hypothyroidism Plan: c/w home meds 5.Dyspnea cause TBD WBC #wnl BNP <200 but may be falsely low bc of obesity after lasix and neb tx pt reported feeling better Plan:f/u chest x-ray to r/o PNA prior to discharge DISPO; tomorrow if we can wean of O2 Problems (1) Cellulitis of lower extremity Status: Acute (2) DVT of lower extremity (deep venous thrombosis) Status: Acute Plan/VTE VTE Prophylaxis Ordered?: Yes VS, I&O, 24H, [facility] Vital Signs/I&O Vital Signs Date Time Temp Pulse Resp B/P (MAP) Pulse Ox O2 Delivery O2 Flow Rate FiO2 03/22/19 09:28 68 151/83 03/22/19 08:20 2.0 03/22/19 06:00 98.4 20 93 03/20/19 02:00 Room Air I&O- Last 24 Hours up to 6 AM 03/22/19 05:59 Intake Total 600 ml Output Total 150 ml Balance 450 ml Laboratory Data 24H LABS Laboratory Tests 2 03/21/19 16:47: Bedside Glucose (Misc Panel) 232H 03/21/19 19:45: Bedside Glucose (Misc Panel) 259H 03/22/19 05:09: Immature Granulocyte % (Auto) 0.6, White Blood Count 7.1, Red Blood Count 3.32L, Hemoglobin 11.7L, Hematocrit 34.7L, Mean Corpuscular Volume 104.5H, Mean Corpuscular Hemoglobin 35.2H, Mean Corpuscular Hemoglobin Concent 33.7, Red Cell Distribution Width 14.6H, Platelet Count 112L, Neutrophils (%) (Auto) 72.6H, Lymphocytes (%) (Auto) 17.3L, Monocytes (%) (Auto) 5.2H, Eosinophils (%) (Auto) 3.7H, Basophils (%) (Auto) 0.6, Neutrophils # (Auto) 5.1, Lymphocytes # (Auto) 1.2L, Monocytes # (Auto) 0.4, Eosinophils # (Auto) 0.3, Basophils # (Auto) 0.0, Nucleated Red Blood Cells % (auto) 0.0, Anion Gap 7L, Glomerular Filtration Rate 55.6, Blood Urea Nitrogen 19H, Creatinine 1.01, Sodium Level 144, Potassium Level 4.1, Chloride Level 119H, Carbon Dioxide Level 18L, Calcium Level 7.8L 03/22/19 07:52: Bedside Glucose (Misc Panel) 136H 03/22/19 12:10: Bedside Glucose (Misc Panel) 180H CBC/BMP Laboratory Tests 03/22/19 05:09 Red Blood Count 3.32 L, Mean Corpuscular Volume 104.5 H, Mean Corpuscular Hemoglobin 35.2 H, Mean Corpuscular Hemoglobin Concent 33.7, Red Cell Distri bution Width 14.6 H, Neutrophils (%) (Auto) 72.6 H, Lymphocytes (%) (Auto) 17.3 L, Monocytes (%) (Auto) 5.2 H, Eosinophils (%) (Auto) 3.7 H, Basophils (%) (Auto) 0.6, Neutrophils # (Auto) 5.1, Lymphocytes # (Auto) 1.2 L, Monocytes # (Auto) 0.4, Eosinophils # (Auto) 0.3, Basophils # (Auto) 0.0, Calcium Level 7.8 L Microbiology Microbiology 03/19/19 Blood Culture - Preliminary, Resulted No Growth after 48 hours. All Specime... 03/19/19 Blood Culture - Preliminary, Resulted No Growth after 48 hours. All Specime... DALLAS RUIZ MD Mar 22, 2019 13:19
[2019-03-22 14:00] VITALS: BP 108/51
--- NOTE | 2019-03-22 15:05 | REP ---
PORTABLE CHEST: AP portable view of the chest is performed. COMPARISON: 03/20/2019. There is cardiomegaly and vascular congestion. There are in increased bibasilar interstitial infiltrates with probable small bilateral effusions. IMPRESSION: Cardiomegaly with vascular congestion, bibasilar infiltrates and effusions. Findings are most consistent with CHF and pulmonary edema. Electronically Signed by Fabian Rocha MD 03/23/2019 10:05 A
[2019-03-22] MEDS: RIVAROXABAN 20 MG TAB (XARELTO) PO SCH (18:42)
[2019-03-22] MEDS: CLINDAMYCIN 150 MG CAP PO SCH ×2 (18:50→23:07)
[2019-03-22] MEDS: LEVEMIR (INSULIN DETEMIR) 1 UNITS/0.01ML SC SCH (21:18)
[2019-03-22] MEDS: PRAMIPEXOLE 1 MG TAB PO SCH (21:18)
[2019-03-22 22:00] VITALS: BP 115/50
[2019-03-23] MEDS: LEVOTHYROXINE 100MCG TABLET (0.1MG) PO SCH (05:15)
[2019-03-23 06:00] VITALS: BP 152/74
[2019-03-23 06:30] LABS: EOS # 0.2 10^3/uL (0.0-0.50); EOS % 4.8 % (0.0-3.0); HEMATOCRIT 33.9 % (36.0-47.0); HEMOGLOBIN 11.5 g/dl (12.0-15.5); LYMPH # 0.7 10^3/uL (1.5-4.5); LYMPH % 18.7 % (24.0-44.0); MEAN CORPUSCULAR HEMOGLOBIN 34.8 pg (27.0-33.0); MEAN CORPUSCULAR HGB CONC 33.9 g/dl (32.0-36.5); MEAN CORPUSCULAR VOLUME 102.7 fl (80.0-96.0); MONO # 0.3 10^3/uL (0.0-0.8); MONO % 7.6 % (0.0-5.0); NEUTROPHILS # 2.7 10^3/uL (1.8-7.7); NEUTROPHILS % 67.4 % (36.0-66.0)
[2019-03-23 06:32] LABS: PLATELET COUNT, AUTOMATED 95 10^3/uL (150-450)
[2019-03-23 06:54] LABS: CALCIUM LEVEL 8.1 MG/DL (8.8-10.2); CREATININE FOR GFR 1.06 MG/DL (0.55-1.30); GLOMERULAR FILTRATION RATE 52.6 (>32)
[2019-03-23] MEDS: HumaLOG INSULIN (NovoLOG) PER UNIT SC SCH ×2 (07:30→12:00)
[2019-03-23 08:00] VITALS: BP 152/74
[2019-03-23] MEDS: GABAPENTIN 300 MG CAP PO SCH (08:00)
[2019-03-23] MEDS: NADOLOL 20MG TABLET PO SCH (08:00)
[2019-03-23] MEDS: ACETAMINOPHEN TAB 650MG DOSE (2X325MG) PO PRN (08:00)
[2019-03-23] MEDS: CLINDAMYCIN 150 MG CAP PO SCH (08:01)
[2019-03-23] MEDS: oxyBUTYnin *DITROPAN XL* 5 MG TABCR PO SCH (08:01)
[2019-03-23] MEDS: DOCUSATE SODIUM 100 MG CAP PO SCH (08:01)
[2019-03-23] MEDS ORDERED: ALBUTEROL SULFATE 2.5 MG/0.5 ML INH NEB SOLN NEB PRN (08:45)
--- NOTE | 2019-03-23 08:45 | IPNPDOC ---
Subjective Date Seen The patient was seen on 03/23/19.At 6:33 AM Subjective Chief Complaint/HPI Extremity pain. Events since last encounter The patient denies having any acute complaints this morning, and reports that her cough is slightly better, Per discussion with nursing staff. The patient's breathing was fine most of the evening, and was weaned off of oxygen. Her oxygen saturation was maintained at around 92%. But this morning at around 4 AM she began wheezing Objective Physical Examination General Exam: Positive: No Acute Distress Eye Exam: Positive: PERRLA ENT Exam: Positive: Atraumatic, Mucous membr. moist/pink Chest Exam: Positive: Wheezing Heart Exam: Positive: Rate Normal, Normal S1, Normal S2 Abdomen Exam: Positive: Normal bowel sounds, Soft Extremity Exam: Positive: Normal pulses, Tenderness, Swelling, Other (. Positive redness and tenderness and right lower extremity, just above the medial malleolus, 1+ bipedal edema positive) Skin Exam: Positive: Other skin issue (redness and tenderness of the skin just above the right ankle. ) Neuro Exam: Positive: Cranial Nerves 3-12 NL Psych Exam: Positive: Mood NL Assessment /Plan Assessment is an 83 yr old F w a PMH of DVT, DM, hypothyrodism, cellulitis, ORIF of the right hip, hx of hysterectomy, & bilateral oophorectomy, hx of left lump left breast lumpectomy, right second toe neuropathy, CHF, fatty liver, Bulging discs, Polycythemia vera and remote hx of SI who is admitted for management of RLE DVT & Cellulitis. 1.Dyspnea -Suspect the patient might have bronchitis or undiagnosed COPD -it is unlikely that she has CHF as the chest x-ray done yesterday showed cardiomegaly, but the echo that was recently done showed a normal EF. Additionally, the patient's BNP this admission was under 200 Plan: DuoNeb's PRN, once wheezing has resolved patient can f/u w PCP for out patient PFTs 2 RLE DVT Plan: c/w xarelto 20 mg daily and elevation of leg 3.Cellulitis -afebrile w/o leukocytosis & lactic acid is wnl Plan: Clindamycin antibiotic day #4 4. DM2 Plan: c/w current meds 5.Hypothyroidism Plan: c/w home meds DISPO; back to [facility] pending resolution of wheezing DVT prophylaxis on Xarelto Problems (1) Cellulitis of lower extremity Status: Acute (2) DVT of lower extremity (deep venous thrombosis) Status: Acute Plan/VTE VTE Prophylaxis Ordered?: Yes VS, I&O, 24H, Fishbone Vital Signs/I&O Vital Signs Date Time Temp Pulse Resp B/P (MAP) Pulse Ox O2 Delivery O2 Flow Rate FiO2 03/23/19 08:00 72 152/74 03/23/19 06:00 98.2 18 93 03/22/19 22:00 1.0 03/20/19 02:00 Room Air I&O- Last 24 Hours up to 6 AM 03/23/19 06:00 Intake Total 920 ml Balance 920 ml Laboratory Data 24H LABS Laboratory Tests 2 03/22/19 12:10: Bedside Glucose (Misc Panel) 180H 03/22/19 17:11: Bedside Glucose (Misc Panel) 211H 03/22/19 20:25: Bedside Glucose (Misc Panel) 230H 03/23/19 05:47: Bedside Glucose (Misc Panel) 102 03/23/19 06:20: Immature Granulocyte % (Auto) 0.5, White Blood Count 4.0, Red Blood Count 3.30L, Hemoglobin 11.5L, Hematocrit 33.9L, Mean Corpuscular Volume 102.7H, Mean Corpuscular Hemoglobin 34.8H, Mean Corpuscular Hemoglobin Concent 33.9, Red Cell Distribution Width 14.3, Platelet Count 95L, Neutrophils (%) (Auto) 67.4H, Lymphocytes (%) (Auto) 18.7L, Monocytes (%) (Auto) 7.6H, Eosinophils (%) (Auto) 4.8H, Basophils (%) (Auto) 1.0, Neutrophils # (Auto) 2.7, Lymphocytes # (Auto) 0.7L, Monocytes # (Auto) 0.3, Eosinophils # (Auto) 0.2, Basophils # (Auto) 0.0, Nucleated Red Blood Cells % (auto) 0.0, Immature Platelet Fraction 2.6, Anion Gap 5L, Glomerular Filtration Rate 52.6, Blood Urea Nitrogen 16, Creatinine 1.06, Sodium Level 140, Potassium Level 4.0, Chloride Level 112H, Carbon Dioxide Level 23, Calcium Level 8.1L CBC/BMP Laboratory Tests 03/23/19 06:20 Red Blood Count 3.30 L, Mean Corpuscular Volume 102.7 H, Mean Corpuscular Hemoglobin 34.8 H, Mean Corpuscular Hemoglobin Concent 33.9, Red Cell Distribution Width 14.3, Neutrophils (%) (Auto) 67.4 H, Lymphocytes (%) (Auto) 18.7 L, Monocytes (%) (Auto) 7.6 H, Eosinophils (%) (Auto) 4.8 H, Basophils (%) (Auto) 1.0, Neutrophils # (Auto) 2.7, Lymphocytes # (Auto) 0.7 L, Monocytes # (Auto) 0.3, Eosinophils # (Auto) 0.2, Basophils # (Auto) 0.0, Calcium Level 8.1 L Microbiology Microbiology 03/19/19 Blood Culture - Preliminary, Resulted No Growth after 72 hours. All specime... 03/19/19 Blood Culture - Preliminary, Resulted No Growth after 72 hours. All specime... DALLAS RUIZ MD Mar 23, 2019 08:45
--- NOTE | 2019-03-23 12:27 | DS.PDOC ---
Discharge Summary General Date of Admission Mar 20, 2019 at 00:26 Date of Discharge 03/23/2019 Primary Care Physician: SKIP MARTINEZ DO Attending Physician: DALLAS RUIZ MD Discharge Summary PROCEDURES PERFORMED DURING STAY: [None]. ADMITTING DIAGNOSES: 1. DVT. 2. Right lower extremity cellulitis DISCHARGE DIAGNOSES: 1. DVT. 2. Right lower extremity cellulitis,- improving. 3. Wheezing, cause to be determined, resolved after neb treatments COMPLICATIONS/CHIEF COMPLAINT: Cellulitis Of Lower Extremity,Dvt Of Lower Extremi. HISTORY OF PRESENT ILLNESS: This is an 83 year old female who initially presented on March 20 with lotion. The pain based on ultrasound findings. She was admitted for management of right lower extremity DVT and cellulitis. HOSPITAL COURSE: She was started on lovenox and transitioned to xarelto and received IV abx. Per chart review, it was noted that the patient was previously on Xarelto this medication was resumed. It initial discharge plan was to send her back to [facility] yesterday, but she developed wheezing which improved with treatments. A chest x-ray was done which showed cardiomegaly but the previous echo showed a normal EF. Her BNP during this admission was normal. Therefore, some likely that her shortness of breath was due to fluid overload . She was reexamined on March 23 at 12 PM and reported feeling well. She was afebrile and her WBC count was within normal limits DISCHARGE MEDICATIONS: Please see below. ALLERGIES: Please see below. PHYSICAL EXAMINATION ON DISCHARGE: VITAL SIGNS: Please see below. GENERAL: [NAD] HEENT: [NCAT / EOMI] NECK: [supple] CARDIOVASCULAR EXAMINATION: [RRR/NMRG] RESPIRATORY EXAMINATION: [CTAB on RA] ABDOMINAL EXAMINATION: [soft & NT on palpation] EXTREMITIES: [RLE less swollen than yesterday but still red] SKIN: [see above] NEUROLOGICAL EXAMINATION: [CN 2-12 intact / speech not dysarthric] PSYCHIATRIC EXAMINATION: [alert and oriented to person] LABORATORY DATA: Please see below. IMAGING See above PROGNOSIS: Fair ACTIVITY: [As tolerated]. DIET diabetic DISCHARGE PLAN: Back to [facility] DISPOSITION: . DISCHARGE INSTRUCTIONS: 1. Continue taking Xarelto 20 mg per day for DVT 2. Take clindamycin for 7 more days. 3. Follow-up with PCP to discuss the need for PFTs ITEMS TO FOLLOWUP ON ON OUTPATIENT: 1 . Resolution of cellulitis. 2. If PFTs are indicated DISCHARGE CONDITION: [Stable]. TIME SPENT ON DISCHARGE: Greater than 20 minutes. Vital Signs/I&Os Vital Signs Date Time Temp Pulse Resp B/P (MAP) Pulse Ox O2 Delivery O2 Flow Rate FiO2 03/23/19 10:00 97.8 03/23/19 08:00 72 152/74 03/23/19 06:00 18 93 03/22/19 22:00 1.0 03/20/19 02:00 Room Air I&O- Last 24 Hours up to 6 AM 03/23/19 06:00 Intake Total 920 ml Balance 920 ml Laboratory Data Labs 24H Laboratory Tests 2 03/22/19 17:11: Bedside Glucose (Misc Panel) 211H 03/22/19 20:25: Bedside Glucose (Misc Panel) 230H 03/23/19 05:47: Bedside Glucose (Misc Panel) 102 03/23/19 06:20: Immature Granulocyte % (Auto) 0.5, White Blood Count 4.0, Red Blood Count 3.30L, Hemoglobin 11.5L, Hematocrit 33.9L, Mean Corpuscular Volume 102.7H, Mean Corpuscular Hemoglobin 34.8H, Mean Corpuscular Hemoglobin Concent 33.9, Red Cell Distribution Width 14.3, Platelet Count 95L, Neutrophils (%) (Auto) 67.4H, Lymphocytes (%) (Auto) 18.7L, Monocytes (%) (Auto) 7.6H, Eosinophils (%) (Auto) 4.8H, Basophils (%) (Auto) 1.0, Neutrophils # (Auto) 2.7, Lymphocytes # (Auto) 0.7L, Monocytes # (Auto) 0.3, Eosinophils # (Auto) 0.2, Basophils # (Auto) 0.0, Nucleated Red Blood Cells % (auto) 0.0, Immature Platelet Fraction 2.6, Anion Gap 5L, Glomerular Filtration Rate 52.6, Blood Urea Nitrogen 16, Creatinine 1.06, Sodium Level 140, Potassium Level 4.0, Chloride Level 112H, Carbon Dioxide Level 23, Calcium Level 8.1L CBC/BMP Laboratory Tests 03/23/19 06:20 Red Blood Count 3.30 L, Mean Corpuscular Volume 102.7 H, Mean Corpuscular Hemoglobin 34.8 H, Mean Corpuscular Hemoglobin Concent 33.9, Red Cell Distribution Width 14.3, Neutrophils (%) (Auto) 67.4 H, Lymphocytes (%) (Auto) 18.7 L, Monocytes (%) (Auto) 7.6 H, Eosinophils (%) (Auto) 4.8 H, Basophils (%) (Auto) 1.0, Neutrophils # (Auto) 2.7, Lymphocytes # (Auto) 0.7 L, Monocytes # (Auto) 0.3, Eosinophils # (Auto) 0.2, Basophils # (Auto) 0.0, Calcium Level 8.1 L FSBS Laboratory Tests Test 03/22/19 17:11 03/22/19 20:25 03/23/19 05:47 Range/Units Bedside Glucose (Misc Panel) 211 230 102 83-110 MG/DL Microbiology Microbiology 03/19/19 Blood Culture - Preliminary, Resulted No Growth after 72 hours. All specime... 03/19/19 Blood Culture - Preliminary, Resulted No Growth after 72 hours. All specime... Discharge Medications Scheduled Cholecalciferol (Vitamin D3) (Vitamin D3) 1,000 Unit Tablet, 1,000 UNIT PO DAILY, (Reported) Clindamycin Hcl (Cleocin HCl) 300 Mg Capsule, 300 MG PO TID for CELLULITIS Furosemide (Furosemide) 40 Mg Tablet, 40 MG PO DAILY, (Reported) Gabapentin (Gabapentin) 300 Mg Capsule, 300 MG PO TID, (Reported) Glipizide (Glipizide) 5 Mg Tablet, 5 MG PO BID, (Reported) 0730,1130 Insulin Detemir (Levemir Flextouch) 100 Unit/1 Ml Insuln.pen, 42 UNIT SC QHS, (Reported) Insulin Lispro (Insulin Lispro) 100 Unit/1 Ml Vial, 12 UNIT SC QAM, (Reported) 0730 Insulin Lispro (Insulin Lispro) 100 Unit/1 Ml Vial, 14 UNIT SC DAILY, (Reported) NOON DOSE Insulin Lispro (Insulin Lispro) 100 Unit/1 Ml Vial, 8 UNIT SC QPM, (Reported) 1700 Lactulose (Lactulose) 10 Gm/15 Ml Solution, 30 ML PO QID, (Reported) Levothyroxine Sodium (Synthroid) 100 Mcg Tablet, 100 MCG PO DAILY, (Reported) Losartan Potassium (Losartan Potassium) 50 Mg Tablet, 50 MG PO DAILY, (Reported) Metformin HCl (Metformin HCl) 500 Mg Tablet, 500 MG PO BID, (Reported) Nadolol (Nadolol) 20 Mg Tablet, 20 MG PO DAILY, (Reported) Oxybutynin Chloride (Ditropan Xl) 5 Mg Tab.er.24, 5 MG PO DAILY, (Reported) Pramipexole Di-HCl (Mirapex) 1 Mg Tablet, 1 MG PO QHS, (Reported) Rivaroxaban (Xarelto) 20 Mg Tablet, 20 MG PO QPM with food Spironolactone (Spironolactone) 25 Mg Tablet, 12.5 MG PO DAILY, (Reported) Scheduled PRN Acetaminophen (Tylenol) 325 Mg Tablet, 650 MG PO Q4H PRN for PAIN / FEVER, (Reported) Bisacodyl (Dulcolax) 10 Mg Supp.rect, 10 MG AR DAILY PRN for CONSTIPATION, (Reported) Milk Of Magnesia (Milk of Magnesia) 2,400 Mg/10 Ml Oral.susp, 30 ML PO DAILY PRN for CONSTIPATION, (Reported) Sodium Phosphate,[place]-Dibasic (Enema) 133 Ml Enema, 1 SUPA AR DAILY PRN for CONSTIPATION, (Reported) Tramadol HCl (Tramadol HCl) 50 Mg Tablet, 25 MG PO Q8H PRN for PAIN, (Reported) Allergies Coded Allergies: red dye (Verified Allergy, Unknown, 03/19/19) DALLAS RUIZ MD Mar 23, 2019 12:27
== END 2019-03-23 13:40 | DRG 300 ==
LOC: M ED 21:30 → M ED INP 03-20 00:26 → M MS5PR 03-20 02:55
PROVIDERS: ADMIT Internal Medicine; ATTEND Internal Medicine
DX: I82.411 Acute embolism and thrombosis of right femoral vein (principal); L03.115 Cellulitis of right lower limb; Z79.899 Other long term (current) drug therapy; Z79.4 Long term (current) use of insulin; I50.9 Heart failure, unspecified; F03.90 Unspecified dementia, unspecified severity, without behavioral disturbance, psychotic disturbance, mood disturbance, and anxiety; E11.9 Type 2 diabetes mellitus without complications; E03.9 Hypothyroidism, unspecified

== ENCOUNTER → 2019-04-19 | Outpatient (REF) | payer MEDICARE ==
[~2019-04-19] MED LIST changes: +ACET-907 PO; +CLEO300C2 PO; +DITR5TAB PO; +DULC10SU2 PR; +ENEMENE PR; -ENOXAPARIN 80 MG/0.8 ML SYRINGE (J1650) SC SCH; +FURO40TA2 PO; +GABA-843 PO; +INSU100V2 SC; +LACT10SO29 PO; +LEVE1INJ5 SC; +METF-839 PO; +MIRA1TAB3 PO; +MOM30SS PO; +NADO20TA PO; +SPIR-10 PO; +SYNT100T PO; +TRAM50TA2 PO; +VITA-145 PO; +XARE10TA PO; +XARE20TA PO
[2019-04-19 07:28] LABS: HEMOGLOBIN A1c 8.9 %
== END ==
LOC: SKLAB7 08:46
PROVIDERS: ATTEND Internal Medicine
DX: E11.9 Type 2 diabetes mellitus without complications (principal)

== ENCOUNTER → 2019-05-19 | Outpatient (REF) | payer MEDICARE ==
[~2019-05-19] MED LIST changes: +ALBU83IN INH; +GUAIDM5UD PO; +LOSA25TA14 PO; +SENN-53 PO; -SENN1TAB40 PO; -SULF1TAB72 PO; +SULF400T14 PO; +VITMTA PO
== END ==
LOC: SKLAB7 07:00
PROVIDERS: ATTEND Internal Medicine
DX: D51.9 Vitamin B12 deficiency anemia, unspecified (principal)

== ENCOUNTER → 2019-06-09 | Outpatient (REF) | payer MEDICARE ==
[~2019-06-09] MED LIST changes: -ALBU83IN INH; -GUAIDM5UD PO; -LOSA25TA14 PO; -SENN-53 PO; +SENN1TAB40 PO; +SULF1TAB72 PO; -SULF400T14 PO; -VITMTA PO
== END ==
LOC: SKLAB7 07:00
PROVIDERS: ATTEND Internal Medicine
DX: K74.60 Unspecified cirrhosis of liver (principal)

== ENCOUNTER → 2019-06-27 | Outpatient (REF) | payer MEDICARE ==
[~2019-06-27] MED LIST changes: +SENN-53 PO; -SENN1TAB40 PO
[2019-06-27 20:38] LABS: APPEARANCE, URINE CLOUDY (CLEAR); BACTERIA, URINE AUTO 3+ (NEGATIVE); BILIRUBIN, URINE AUTO NEGATIVE (NEGATIVE); BLOOD, URINE BLOOD NEGATIVE (NEGATIVE); COLOR, URINE AMBER (YELLOW); GLUCOSE, URINE (UA) AUTO NEGATIVE (NEGATIVE); KETONE, URINE AUTO NEGATIVE (NEGATIVE); LEUKOCYTE ESTERASE, URINE AUTO 3+ (NEGATIVE); MUCUS, URINE SMALL (NEGATIVE); NITRITE, URINE AUTO NEGATIVE (NEGATIVE); PROTEIN, URINE AUTO NEGATIVE (NEGATIVE); RBC, URINE AUTO 5 /HPF (0-3); SPECIFIC GRAVITY URINE AUTO 1.012 (1.002-1.035); SQUAMOUS EPITHELIAL CELL UR AU 0 /HPF (0-6); UROBILINOGEN, URINE AUTO 0.2 mg/dL (0.0-2.0); WBC, URINE AUTO 125 /HPF (0-3)
== END ==
LOC: SKLAB7 20:05
PROVIDERS: ATTEND Internal Medicine
DX: R39.89 Other symptoms and signs involving the genitourinary system (principal)

== ENCOUNTER → 2019-06-29 | Outpatient (REF) | payer MEDICARE ==
[2019-06-29 11:19] LABS: HEMATOCRIT 35.1 % (36.0-47.0); MEAN CORPUSCULAR HGB CONC 31.3 g/dl (32.0-36.5); MEAN CORPUSCULAR VOLUME 108.3 fl (80.0-96.0); PLATELET COUNT, AUTOMATED 101 10^3/uL (150-450); RED BLOOD COUNT 3.24 10^6/uL (4.00-5.40); WHITE BLOOD COUNT 3.8 10^3/uL (4.0-10.0)
[2019-06-29 11:26] LABS: CREATININE FOR GFR 1.55 MG/DL (0.55-1.30); GLOMERULAR FILTRATION RATE 33.9 (>32); POTASSIUM SERUM 4.8 MEQ/L (3.5-5.1)
== END ==
LOC: SKLAB7 10:15
PROVIDERS: ATTEND Internal Medicine
DX: R10.9 Unspecified abdominal pain (principal); K44.9 Diaphragmatic hernia without obstruction or gangrene; R16.1 Splenomegaly, not elsewhere classified

== ENCOUNTER → 2019-06-29 | Outpatient (CLI) | payer MEDICARE ==
[~2019-06-29] MED LIST changes: +ALBU83IN INH; +GUAIDM5UD PO; +LOSA25TA14 PO; +VITMTA PO
--- NOTE | 2019-06-29 12:41 | REP ---
CT ABDOMEN AND PELVIS WITHOUT CONTRAST: CT abdomen and pelvis performed without oral or IV contrast. Sagittal and coronal reconstruction images are performed. Comparison made with prior study of 07/31/2013. The visualized lung bases demonstrate mild fibroatelectatic change. There is mild cardiomegaly. Liver demonstrates a micronodular contour with probable cirrhosis. Gallbladder is grossly unremarkable. Spleen is mildly enlarged measuring 13.6 cm in length. Varices are seen along the posterior aspect of the stomach. Adrenals and pancreas are grossly unremarkable. There is on hydroureteronephrosis or nephrolithiasis bilaterally. There is a cyst in the upper pole of the left kidney measuring 2.4 cm in diameter. There is mild atherosclerotic calcification of the abdominal aorta without aneurysm. There is a small hiatal hernia. There is no evidence of lymphadenopathy in the abdomen or pelvis. No free air or free fluid is seen. Sigmoid colon is tortuous. Adjacent to the superior aspect of the sigmoid colon to the right of midline there is an ill-defined soft tissue density which is partially calcified measuring 1.7 cm in diameter. This may represent old epiploic appendagitis or fat necrosis. The appendix is normal. No other definite bowel abnormality is seen. No pelvic mass is seen. Urinary bladder is mildly distended and appears grossly unremarkable. Metallic internal fixation is seen in the proximal right femur. There are diffuse degenerative changes of the spine with moderate curvature toward the left. IMPRESSION: Small hiatal hernia. The liver has a cirrhotic appearance and there is mild splenomegaly. There are varices in the left upper quadrant. No free air or free fluid. No evidence of hydronephrosis or nephrolithiasis. Ill-defined soft tissue density in the mesentery along the right side of the superior sigmoid colon measures 1.7 cm in maximum diameter and is partially calcified. I suspect this represents and old area of epiploic appendagitis or fat necrosis. Recommend followup CT in 6 months. Electronically Signed by Fabian Rocha MD 06/29/2019 01:12 P
== END ==
LOC: M RAD 10:51
PROVIDERS: ATTEND Nurse Practitioner Family
DX: R16.1 Splenomegaly, not elsewhere classified (principal); K44.9 Diaphragmatic hernia without obstruction or gangrene; I86.4 Gastric varices

== ENCOUNTER → 2019-07-18 | Outpatient (REF) | payer MEDICARE, MEDICAID ==
[2019-07-18 09:34] LABS: HEMATOCRIT 37.2 % (36.0-47.0); HEMOGLOBIN 11.8 g/dl (12.0-15.5); MEAN CORPUSCULAR HEMOGLOBIN 33.4 pg (27.0-33.0); MEAN CORPUSCULAR HGB CONC 31.7 g/dl (32.0-36.5); MEAN CORPUSCULAR VOLUME 105.4 fl (80.0-96.0); PLATELET COUNT, AUTOMATED 118 10^3/uL (150-450); RED BLOOD COUNT 3.53 10^6/uL (4.00-5.40); WHITE BLOOD COUNT 4.4 10^3/uL (4.0-10.0)
== END ==
LOC: SKLAB7 04:54
PROVIDERS: ATTEND Internal Medicine
DX: K92.1 Melena (principal)

== ENCOUNTER 2019-07-19 13:06 | Emergency (ER) | payer MEDICARE, MEDICAID ==
[~2019-07-19 13:06] MED LIST changes: -ALBU83IN INH; -GUAIDM5UD PO; -LOSA25TA14 PO; -VITMTA PO
[2019-07-19 13:31] LABS: VENOUS BASE EXCESS -3.2 (-2.0-2.0); VENOUS HCO3 22.5 MEQ/L (23.0-27.0); VENOUS O2 SATURATION 69.8 % (60.0-80.0); VENOUS PARTIAL PRESSURE CO2 42.7 mmHg (38.0-50.0); VENOUS PARTIAL PRESSURE O2 39.2 mmHg (30.0-50.0); VENOUS PH 7.339 UNITS (7.330-7.430); VENOUS STANDARD HCO3 21.3 MEQ/L; VENOUS TOTAL CO2 23.8 MEQ/L (24.0-28.0)
[2019-07-19 13:39] LABS: HEMATOCRIT 34.5 % (36.0-47.0); MEAN CORPUSCULAR HEMOGLOBIN 34.3 pg (27.0-33.0); MEAN CORPUSCULAR HGB CONC 31.9 g/dl (32.0-36.5); MEAN CORPUSCULAR VOLUME 107.5 fl (80.0-96.0); RED BLOOD COUNT 3.21 10^6/uL (4.00-5.40)
[2019-07-19 13:50] LABS: PLATELET COUNT, AUTOMATED 95 10^3/uL (150-450)
[2019-07-19 13:54] LABS: INR 1.3; PROTHROMBIN TIME 15.9 SECONDS (11.8-14.0)
[2019-07-19 14:09] LABS: EOSINOPHILS 3 % (0-3); LYMPHOCYTES 25 % (16-44); MONOCYTES 2 % (0-5); NEUTROPHILS 66 % (28-66)
[2019-07-19 14:10] LABS: HYPOCHROMASIA 1+; PLATELET ESTIMATE DECREASED (NORMAL)
[2019-07-19] MEDS ORDERED: ALBU83IN INH ×3 (14:15)
[2019-07-19] MEDS ORDERED: NS 500 ML IV ONE (14:15)
[2019-07-19] MEDS ORDERED: VITMTA PO (14:15)
[2019-07-19] MEDS ORDERED: MIRA0.254 PO (14:15)
[2019-07-19] MEDS ORDERED: GUAIDM5UD PO ×2 (14:15)
[2019-07-19] MEDS ORDERED: XARE20TA PO (14:15)
[2019-07-19] MEDS ORDERED: LOSA25TA14 PO (14:15)
[2019-07-19 14:18] LABS: ALBUMIN 2.3 GM/DL (3.2-5.2); ALT/SGPT 42 U/L (12-78); BILIRUBIN,DIRECT 0.2 MG/DL (0.0-0.2); BILIRUBIN,TOTAL 0.5 MG/DL (0.2-1.0); BLOOD UREA NITROGEN 52 MG/DL (7-18); CALCIUM LEVEL 7.9 MG/DL (8.8-10.2); CARBON DIOXIDE LEVEL 24 MEQ/L (21-32); CHLORIDE LEVEL 115 MEQ/L (98-107); CK-MB VALUE MASS 2.6 NG/ML (<3.6); CPK CREATINE PHOSPHOKINASE 89 U/L (26-192); GLOMERULAR FILTRATION RATE 30.5 (>32); GLUCOSE, FASTING 124 MG/DL (70-100); MB/CK RELATIVE INDEX 2.92 (< OR =4); POTASSIUM SERUM 5.8 MEQ/L (3.5-5.1); SODIUM LEVEL 144 MEQ/L (136-145); TROPONIN I < 0.02 NG/ML (< 0.10)
--- NOTE | 2019-07-19 14:24 | REP ---
PORTABLE CHEST X-RAY: Single view. HISTORY: Septic shock. Comparison chest x-ray: March 22, 2019. FINDINGS: EKG monitoring electrodes overlie the chest. No infiltrate is seen in the lung miguel. Heart is not enlarged. Pulmonary vasculature is not increased. IMPRESSION: No infiltrates seen. No acute disease. Electronically Signed by Raul Robertson MD 07/19/2019 03:45 P
[2019-07-19] MEDS ORDERED: GABAPENTIN 300 MG CAP PO ONE (15:45)
--- NOTE | 2019-07-19 17:17 | ED PDOC ---
Post-Departure Follow-Up Dr. godinez presetned to the Ed cfor admission - had lengthy discussion with family who in conjuction with patient made decision for PMP care and requested transfer back to [facility]. I attempted to contact dr. English who was unavailable. Patient and family wished were communicated to nursing staff at [facility]. Leelee Fry MD Jul 19, 2019 17:17
[2019-07-19 17:54] VITALS: BP 73/38
--- NOTE | 2019-07-19 23:48 | ECGEPIP ---
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
== END 2019-07-19 18:53 | disposition home or self-care (01) ==
LOC: EDBD 13:06 → M ED 13:06
DX: K92.2 Gastrointestinal hemorrhage, unspecified (principal); I95.9 Hypotension, unspecified; R05 Cough; R94.31 Abnormal electrocardiogram [ECG] [EKG]; E11.9 Type 2 diabetes mellitus without complications; I48.91 Unspecified atrial fibrillation; I50.33 Acute on chronic diastolic (congestive) heart failure; D64.9 Anemia, unspecified; J44.9 Chronic obstructive pulmonary disease, unspecified; Z86.718 Personal history of other venous thrombosis and embolism; Z86.19 Personal history of other infectious and parasitic diseases; Z91.041 Radiographic dye allergy status; Z79.4 Long term (current) use of insulin; Z79.51 Long term (current) use of inhaled steroids; Z79.899 Other long term (current) drug therapy

== ENCOUNTER → 2019-07-19 | Outpatient (REF) | payer MEDICARE, MEDICAID ==
[2019-07-19 07:48] LABS: HEMATOCRIT 35.9 % (36.0-47.0); HEMOGLOBIN 11.3 g/dl (12.0-15.5); MEAN CORPUSCULAR HEMOGLOBIN 33.5 pg (27.0-33.0); MEAN CORPUSCULAR HGB CONC 31.5 g/dl (32.0-36.5); MEAN CORPUSCULAR VOLUME 106.5 fl (80.0-96.0); PLATELET COUNT, AUTOMATED 100 10^3/uL (150-450); RED BLOOD COUNT 3.37 10^6/uL (4.00-5.40); WHITE BLOOD COUNT 4.1 10^3/uL (4.0-10.0)
[2019-07-19 08:15] LABS: INR 1.27; PROTHROMBIN TIME 15.6 SECONDS (11.8-14.0)
[2019-07-19 08:16] LABS: PARTIAL THROMBOPLASTIN TIME 39.4 SECONDS (25.0-38.4)
== END ==
LOC: SKLAB7 04:54
PROVIDERS: ATTEND Family Medicine
DX: K92.1 Melena (principal)

== ENCOUNTER → 2019-07-20 | Outpatient (REF) | payer MEDICARE, MEDICAID ==
[~2019-07-20] MED LIST changes: +ALBU83IN INH; +GUAIDM5UD PO; +LOSA25TA14 PO; +VITMTA PO
== END ==
LOC: SKLAB7 07:00
PROVIDERS: ATTEND Internal Medicine
DX: R19.5 Other fecal abnormalities (principal)